=== PATIENT | female | born 1995 | race Caucasian/White ===

== ENCOUNTER → 2017-06-07 | Outpatient (REF) | payer BC | LOC: M LAB REF 16:23 | DX: R10.30 Lower abdominal pain, unspecified (principal) | CPT/HCPCS: 87086 ==

== ENCOUNTER → 2018-01-05 | Outpatient (REF) | payer BC | LOC: M SFHCLERA 17:53 | DX: J02.9 Acute pharyngitis, unspecified (principal) ==

== ENCOUNTER → 2019-01-21 | Outpatient (REF) | payer MEDICAID, SELFPAY | LOC: M SFHCLERA 11:04 | PROVIDERS: ATTEND Physician Assistant Medical | DX: R30.0 Dysuria (principal) ==

== ENCOUNTER → 2019-12-27 | Outpatient (CLI) | payer OTHER ==
[2019-12-27 13:23] LABS: BASO # 0.1 10^3/uL (0.0-0.2); EOS # 0.3 10^3/uL (0.0-0.5); EOS % 3.7 % (0.0-3.0); HEMATOCRIT 40.6 % (36.0-47.0); HEMOGLOBIN 12.8 g/dl (12.0-15.5); LYMPH # 1.8 10^3/uL (1.5-5.0); LYMPH % 25.8 % (24.0-44.0); MEAN CORPUSCULAR HEMOGLOBIN 29.2 pg (27.0-33.0); MEAN CORPUSCULAR HGB CONC 31.5 g/dl (32.0-36.5); MEAN CORPUSCULAR VOLUME 92.7 fl (80.0-96.0); MONO # 0.5 10^3/uL (0.0-0.8); MONO % 7.8 % (0.0-5.0); NEUTROPHILS # 4.3 10^3/uL (1.5-8.5); NEUTROPHILS % 61.3 % (36.0-66.0); PLATELET COUNT, AUTOMATED 317 10^3/uL (150-450); RED BLOOD COUNT 4.38 10^6/uL (4.00-5.40)
[2019-12-27 14:15] LABS: ALBUMIN 3.7 GM/DL (3.2-5.2); ALT/SGPT 20 U/L (12-78); BILIRUBIN,TOTAL 0.3 MG/DL (0.2-1.0); BLOOD UREA NITROGEN 9 MG/DL (7-18); CALCIUM LEVEL 9.2 MG/DL (8.5-10.1); CARBON DIOXIDE LEVEL 27 MEQ/L (21-32); CHLORIDE LEVEL 107 MEQ/L (98-107); CREATININE FOR GFR 0.91 MG/DL (0.55-1.30); GLOMERULAR FILTRATION RATE > 60.0 (>60); GLUCOSE, FASTING 77 MG/DL (70-100); POTASSIUM SERUM 4.3 MEQ/L (3.5-5.1); SODIUM LEVEL 139 MEQ/L (136-145); TOTAL PROTEIN 7.7 GM/DL (6.4-8.2)
[2019-12-27 14:16] LABS: FREE T4 1.04 NG/DL (0.76-1.46); THYROID PEROXIDASE ANTIBODY 31.7 U/ML (<60.0); TOTAL 25(OH) VITAMIN D 39.6 NG/ML (30.0-100.0)
[2019-12-28 20:11] LABS: THRYOGLOBULIN ANTIBODIES (ATA) < 1.0 IU/mL (0.0-0.9); TISSUE TRANSGLUTAMINASE IgA <2 U/mL (0-3); TISSUE TRANSGLUTAMINASE IgG <2 U/mL (0-5); UNITSIGA FOR GLIADIN IGA 4 units (0-19); UNITSIGG FOR GLIADIN IGG 4 units (0-19)
== END ==
LOC: M LAB 12:11
PROVIDERS: ATTEND Physician Assistant
DX: K58.0 Irritable bowel syndrome with diarrhea (principal); Z13.29 Encounter for screening for other suspected endocrine disorder

== ENCOUNTER → 2020-02-28 | Outpatient (CLI) | payer OTHER ==
[~2020-02-28] MED LIST: ISOVUE-370 76% 100ML VIAL As Ordered ONE
--- NOTE | 2020-02-28 16:03 | REPVR ---
PROCEDURE INFORMATION: Exam: CT Neck With Contrast Exam date and time: 02/28/2020 3:46 PM Age: 24 years old Clinical indication: Enlarged lymph nodes; Localized; Additional info: Localized enlarged lymph nodes TECHNIQUE: Imaging protocol: Computed tomography images of the neck with intravenous contrast. Radiation optimization: All CT scans at this facility use at least one of these dose optimization techniques: automated exposure control; mA and/or kV adjustment per patient size (includes targeted exams where dose is matched to clinical indication); or iterative reconstruction. Contrast material: ISOVUE 370; Contrast volume: 75 ml; Contrast route: INTRAVENOUS (IV); COMPARISON: No relevant prior studies available. FINDINGS: Nasopharynx: Unremarkable. Oropharynx: There is bilateral marked tonsillar enlargement. A small calcification in the left tonsil is evidence of chronic inflammation. No acute inflammatory findings are identified. There is no evidence of peritonsillar abscess. Hypopharynx: Unremarkable. Larynx: Unremarkable. Normal epiglottis. Retropharyngeal space: Unremarkable. Submandibular/Parotid glands: Normal. Glands are normal in size. Thyroid: Normal. No enlarged or calcified nodules. Lymph nodes: There are bilateral mildly enlarged level 2 jugular lymph nodes measuring up to 10 mm in short axis. There are additional smaller bilateral jugular lymph nodes. No grossly enlarged lymph nodes. No abnormally enhancing lymph nodes. Trachea: Visualized trachea is unremarkable. Lungs: Unremarkable as visualized. Bones/joints: Unremarkable. No acute fracture. Soft tissues: Unremarkable. No significant soft tissue swelling. IMPRESSION: 1. Markedly , symmetrically, enlarged tonsils with no evidence of acute inflammation. 2. Mildly enlarged bilateral jugular lymph nodes consistent with reactive adenopathy. Electronically signed by: Darrell Martinez On 02/28/2020 16:02:40 PM
== END ==
LOC: M RAD 15:33
PROVIDERS: ATTEND Physician Assistant
DX: R59.0 Localized enlarged lymph nodes (principal)
CPT/HCPCS: 70491; Q9967

== ENCOUNTER → 2020-06-22 | Outpatient (CLI) | payer SELFPAY | LOC: M LABSMTC 11:23 | PROVIDERS: ATTEND Pediatrics | DX: Z20.822 Contact with and (suspected) exposure to COVID-19 (principal) ==

== ENCOUNTER → 2020-07-28 | Outpatient (CLI) | payer SELFPAY | LOC: M LABSMTC 12:17 | PROVIDERS: ATTEND Pediatrics | DX: Z20.822 Contact with and (suspected) exposure to COVID-19 (principal) ==

== ENCOUNTER → 2020-07-30 | Outpatient (CLI) | payer SELFPAY | LOC: M LABSMTC 11:59 | PROVIDERS: ATTEND Pediatrics | DX: Z20.822 Contact with and (suspected) exposure to COVID-19 (principal) ==

== ENCOUNTER → 2021-01-15 | Outpatient (CLI) | payer MEDICAID ==
--- NOTE | 2021-01-15 13:10 | REP ---
INDICATION: PLEURISY. COMPARISON: 10/25/2015 PA and lateral chest. TECHNIQUE: Upright PA and lateral chest. FINDINGS: The lung childers are clear. Cardiac size is normal. The yaquelin, mediastinum and skeletal structures are unremarkable. No focal or diffuse pleural thickening. No pleural effusion. IMPRESSION: Essentially negative PA and lateral chest <Electronically signed by Heriberto Barnes > 01/15/21 [id number]
[2021-01-15 13:12] LABS: BASO # 0.1 10^3/uL (0.0-0.2); BASO % 1.3 % (0.0-1.0); EOS # 0.1 10^3/uL (0.0-0.5); EOS % 1.8 % (0.0-3.0); HEMATOCRIT 40.1 % (36.0-47.0); HEMOGLOBIN 12.4 g/dl (12.0-15.5); LYMPH # 2.2 10^3/uL (1.5-5.0); LYMPH % 27.6 % (24.0-44.0); MEAN CORPUSCULAR HEMOGLOBIN 28.3 pg (27.0-33.0); MEAN CORPUSCULAR HGB CONC 30.9 g/dl (32.0-36.5); MEAN CORPUSCULAR VOLUME 91.6 fl (80.0-96.0); MONO # 0.8 10^3/uL (0.0-0.8); MONO % 9.6 % (2.0-8.0); NEUTROPHILS # 4.7 10^3/uL (1.5-8.5); NEUTROPHILS % 59.3 % (36.0-66.0); PLATELET COUNT, AUTOMATED 329 10^3/uL (150-450); RED BLOOD COUNT 4.38 10^6/uL (4.00-5.40); WHITE BLOOD COUNT 7.9 10^3/uL (4.0-10.0)
[2021-01-15 13:26] LABS: INR 0.96; PROTHROMBIN TIME 13.2 SECONDS (12.7-14.5)
[2021-01-15 13:27] LABS: PARTIAL THROMBOPLASTIN TIME 29.2 SECONDS (25.9-37.0)
[2021-01-15 13:29] LABS: D-DIMER QUANT 361.67 ng/ml (<500)
[2021-01-15 13:42] LABS: ALT/SGPT 25 U/L (12-78); BILIRUBIN,TOTAL 0.4 MG/DL (0.2-1.0); BLOOD UREA NITROGEN 12 MG/DL (7-18); CALCIUM LEVEL 9.3 MG/DL (8.5-10.1); CARBON DIOXIDE LEVEL 27 MEQ/L (21-32); CHLORIDE LEVEL 109 MEQ/L (98-107); CREATININE FOR GFR 0.88 MG/DL (0.55-1.30); GLOMERULAR FILTRATION RATE > 60.0 (>60); GLUCOSE, FASTING 95 MG/DL (70-100); POTASSIUM SERUM 4.6 MEQ/L (3.5-5.1); SODIUM LEVEL 139 MEQ/L (136-145); TOTAL PROTEIN 7.5 GM/DL (6.4-8.2); TROPONIN I < 0.02 NG/ML (< 0.10)
== END ==
LOC: M LAB 12:32
PROVIDERS: ATTEND Physician Assistant
DX: R09.1 Pleurisy (principal)

== ENCOUNTER → 2021-03-20 | Outpatient (CLI) | payer OTHER ==
[~2021-03-20] MED LIST changes: -ISOVUE-370 76% 100ML VIAL As Ordered ONE; +NEXI20CA PO; +THERTAB52 PO
== END ==
LOC: M LABSMTC 10:26
PROVIDERS: ATTEND Anesthesiology
DX: Z01.818 Encounter for other preprocedural examination (principal); Z11.52 Encounter for screening for COVID-19

== ENCOUNTER → 2021-03-20 | Outpatient (CLI) | payer OTHER ==
[2021-03-20 10:39] LABS: BASO # 0.1 10^3/uL (0.0-0.2); BASO % 1.1 % (0.0-1.0); EOS # 0.1 10^3/uL (0.0-0.5); EOS % 1.5 % (0.0-3.0); HEMATOCRIT 41.3 % (36.0-47.0); HEMOGLOBIN 13.1 g/dl (12.0-15.5); LYMPH # 2.1 10^3/uL (1.5-5.0); LYMPH % 39.7 % (24.0-44.0); MEAN CORPUSCULAR HEMOGLOBIN 29.4 pg (27.0-33.0); MEAN CORPUSCULAR HGB CONC 31.7 g/dl (32.0-36.5); MEAN CORPUSCULAR VOLUME 92.6 fl (80.0-96.0); MONO # 0.6 10^3/uL (0.0-0.8); MONO % 11.3 % (2.0-8.0); NEUTROPHILS # 2.4 10^3/uL (1.5-8.5); NEUTROPHILS % 46.2 % (36.0-66.0); PLATELET COUNT, AUTOMATED 300 10^3/uL (150-450); RED BLOOD COUNT 4.46 10^6/uL (4.00-5.40); WHITE BLOOD COUNT 5.2 10^3/uL (4.0-10.0)
[2021-03-20 11:09] LABS: ALBUMIN 3.8 GM/DL (3.2-5.2); ALT/SGPT 21 U/L (12-78); BILIRUBIN,TOTAL 0.4 MG/DL (0.2-1.0); BLOOD UREA NITROGEN 15 MG/DL (7-18); CALCIUM LEVEL 9.6 MG/DL (8.5-10.1); CARBON DIOXIDE LEVEL 25 MEQ/L (21-32); CHLORIDE LEVEL 110 MEQ/L (98-107); CREATININE FOR GFR 1.01 MG/DL (0.55-1.30); GLOMERULAR FILTRATION RATE > 60.0 (>60); GLUCOSE, FASTING 83 MG/DL (70-100); POTASSIUM SERUM 4.9 MEQ/L (3.5-5.1); SODIUM LEVEL 139 MEQ/L (136-145); TOTAL PROTEIN 7.5 GM/DL (6.4-8.2)
== END ==
LOC: M LAB 09:02
PROVIDERS: ATTEND Physician Assistant
DX: Z01.818 Encounter for other preprocedural examination (principal)

== ENCOUNTER 2021-03-25 10:23 | Observation (INO) | payer OTHER ==
[~2021-03-25] VITALS: Ht 170.2 cm; Wt 80.7 kg
[~2021-03-25 10:23] MED LIST changes: +BUPIVACAINE LIPOSOME/PF 1.3% 20ML VIAL (13.3MG/ML)(EXPAREL)(C9290 PER1MG) As Ordered ONE; +GENTAMICIN SULF 80MG/2ML VIAL As Ordered ONE; +HEPARIN SOD (PORCINE) 5000UNITS/ML 1ML VIAL/SYRINGE SQ ONE; +LIDOCAINE 2% 100MG/5ML SDV (FOR ANES.) As Ordered ONE; +LR 1,000 ML IV ONE; +MIDAZOLAM INJ 2MG/2ML VIAL (J2250 PER 1MG) As Ordered ONE; +ONDANSETRON 4MG/2ML VIAL As Ordered ONE; +ROCURONIUM BROMIDE 50 MG/5 ML VIAL As Ordered ONE; +SUGAMMADEX SODIUM 500 MG/5 ML VIAL (BRIDION) As Ordered ONE; +ceFAZolin SOD 2 GM in IV 1 EA IV ONE; +dexameTHASONE 4 MG/ML 1ML VIAL (J1100 PER 1MG) As Ordered ONE; +fentaNYL 250 MCG/5 ML INJECTION (J3010) As Ordered ONE; +propofoL 200 MG/20 ML VIAL As Ordered ONE
--- OUTSIDE RECORDS SUMMARY | 2021-03-25 10:27 | CCD | Continuity of Care Document ---
Author Author Zulma SCHNEIDER D.O. Organization Unknown Address [address] [place] [address] Phone [phone] Care Team Providers Care [employer] Piece Consultant Name Role Phone Liat Schneider D.O. AUTM Brijesh Caceres M.D. AUTM [phone] Gabriela Hunt DO AUTM [phone] Problems Active Problems Provider Date Essential hypertension Onset: 12/17/2019 Migraine without aura, not refractory GURDEEP Draper On set: 12/23/2019 Irritable bowel syndrome with diarrhea GURDEEP Draper O nset: 12/23/2019 Gastro-esophageal reflux disease with esophagitis GURDEEP Morgan Onset: 12/23/2019 Social History Type Date Description Comments Sex Unknown ETOH Use Currently consumes alcohol 10 pe r week Tobacco Use Start: Unknown Patient has never smoked Recreational Drug Use Denies Drug Use Exercise Type/Frequency Exercises regularly Exercise Type/Frequency Cardio Sun Exposure Uses sunscreen Seat Belt/Car Seat Always uses seat belt Allergies, Adverse Reactions, Alerts Description No Known Drug Allergies Medications Active Medications SIG Qnty Indications Ordering Provide r Date Esomeprazole Magnesium 20mg Capsul es DR 1 by mouth every day 90caps K21.0 Liat Schneider D.O. Dicyclomine HCL 10mg Capsules take one tablet every 12 hours by mouth as needed for diarrhea. 90caps K58.0 Liat Schneider D.O. 12/23/2019 Multivitamin Adult Tablets 1 by mouth every day Unknown Kyleena 19.5mg IUD Unknown Immunizations Description No Information Available Vital Signs Date Vital Result Comment 03/05/2021 9:21am BP Systolic 122 mmHg BP Diastolic 82 mmHg Height 66.5 inches 5'6.50" Weight 183.00 lb BMI (Body Mass Index) 29.1 kg/m2 Heart Rate 78 /min Respiratory Rate 18 /min Body Temperature 97.5 F O2 % BldC Oximetry 97 % [place] Body Weight 130 lb 01/15/2021 11:18am BP Systolic 118 mmHg BP Diastolic 72 mmHg Height 66.5 inches 5'6.50" Weight 184.25 lb BMI (Body Mass Index) 29.3 kg/m2 Heart Rate 78 /min Respiratory Rate 18 /min Body Temperature 98.1 F O2 % BldC Oximetry 98 % [place] Body Weight 130 lb Results Test Acquired Date Facility Test Result H/L Range Note Coronavirus 2019 Nasopharygeal 03/20/2021 [facility] Outpa tient Testing (Registration) [address] [place] [address] [phone] Coronavirus 2019 Nasopharygeal ASSAY INFORMATIO <SEE N OTE> 1 CBC With Differential 03/20/[address] [address] [phone] White Blood Count 5.2 10 Normal 4.0-10.0 Red Blood Count 4.46 10 Normal 4.00-5.40 Hemoglobin 13.1 g/dL Normal 12.0-15.5 Hematocrit 41.3 % Normal 36.0-47.0 Mean Corpuscular Volume 92.6 fl Normal 80.0-96.0 Mean Corpuscular Hemoglobin 29.4 pg Normal 27.0-33.0 Mean Corpuscular HGB Conc 31.7 g/dL Low 32.0-36.5 Red Cell Distribution Width 13.4 % Normal 11.5-14.5 Platelet Count, Automated 300 10 Normal 150-450 Neutrophils % 46.2 % Normal 36.0-66.0 Lymph % 39.7 % Normal 24.0-44.0 [place] % 11.3 % High 2.0-8.0 Eos % 1.5 % Normal 0.0-3.0 Baso % 1.1 % High 0.0-1.0 Immature Granulocyte % 0.2 % Normal 0-3.0 Nucleated Red Blood Cell % 0.0 % Normal 0-0 Neutrophils # 2.4 10 Normal 1.5-8.5 Lymph # 2.1 10 Normal 1.5-5.0 [place] # 0.6 10 Normal 0.0-0.8 Eos # 0.1 10 Normal 0.0-0.5 Baso # 0.1 10 Normal 0.0-0.2 Comprehensive Metabolic Profil 03/20/[address] [address] [phone] Glucose, Fasting 83 mg/dL Normal 70-100 Blood Urea Nitrogen 15 mg/dL Normal 7-18 Creatinine For GFR 1.01 mg/dL Normal 0.55-1.30 Glomerular Filtration Rate > 60.0 Normal >60 2 Sodium Level 139 mEq/L Normal 136-145 Potassium Serum 4.9 mEq/L Normal 3.5-5.1 Chloride Level 110 mEq/L High 98-107 Carbon Dioxide Level 25 mEq/L Normal 21-32 Anion Gap 4 mEq/L Low 8-16 Calcium Level 9.6 mg/dL Normal 8.5-10.1 Ast/Sgot 15 U/L Normal 7-37 Alt/SGPT 21 U/L Normal 12-78 Alkaline Phosphatase 117 U/L Normal 45-117 Bilirubin,Total 0.4 mg/dL Normal 0.2-1.0 Total Protein 7.5 GM/DL Normal 6.4-8.2 Albumin 3.8 GM/DL Normal 3.2-5.2 Albumin/Globulin Ratio 1.0 Low 1.2-2.2 Ua W/Culture If Indicated 01/19/2021 [facility] [place] [address] [phone] Color Ur YELLOW 3 Appearance Ur CLEAR Clear pH Ur Strip 5.5 5-8 Sp Gr Ur Refractometry 1.009 1.005-1.030 Leukocyte esterase Ur Ql Strip NEGATIVE Negative Nitrite Ur Ql Strip NEGATIVE Negative Prot Ur Ql Strip NEGATIVE Negative Glucose Ur Strip.auto-mCnc NEGATIVE Negative Ketones Ur Ql Strip NEGATIVE Negative Urobilinogen Ur Ql 0.2 EU/dl 0.2-1 Eu/dl Bilirub Ur Ql Strip.auto NEGATIVE Negative RBC # Ur Strip NEGATIVE Negative Urine Microscopic? (Cif) NO CBC With Differential 01/15/[address] [id number] [phone] White Blood Count 7.9 10 Normal 4.0-10.0 Red Blood Count 4.38 10 Normal 4.00-5.40 Hemoglobin 12.4 g/dL Normal 12.0-15.5 Hematocrit 40.1 % Normal 36.0-47.0 Mean Corpuscular Volume 91.6 fl Normal 80.0-96.0 Mean Corpuscular Hemoglobin 28.3 pg Normal 27.0-33.0 Mean Corpuscular HGB Conc 30.9 g/dL Low 32.0-36.5 Red Cell Distribution Width 13.9 % Normal 11.5-14.5 Platelet Count, Automated 329 10 Normal 150-450 Neutrophils % 59.3 % Normal 36.0-66.0 Lymph % 27.6 % Normal 24.0-44.0 [place] % 9.6 % High 2.0-8.0 Eos % 1.8 % Normal 0.0-3.0 Baso % 1.3 % High 0.0-1.0 Immature Granulocyte % 0.4 % Normal 0-3.0 Nucleated Red Blood Cell % 0.0 % Normal 0-0 Neutrophils # 4.7 10 Normal 1.5-8.5 Lymph # 2.2 10 Normal 1.5-5.0 [place] # 0.8 10 Normal 0.0-0.8 Eos # 0.1 10 Normal 0.0-0.5 Baso # 0.1 10 Normal 0.0-0.2 Comprehensive Metabolic Profil 01/15/[address] [address] [phone] Glucose, Fasting 95 mg/dL Normal 70-100 Blood Urea Nitrogen 12 mg/dL Normal 7-18 Creatinine For GFR 0.88 mg/dL Normal 0.55-1.30 Glomerular Filtration Rate > 60.0 Normal >60 4 Sodium Level 139 mEq/L Normal 136-145 Potassium Serum 4.6 mEq/L Normal 3.5-5.1 Chloride Level 109 mEq/L High 98-107 Carbon Dioxide Level 27 mEq/L Normal 21-32 Anion Gap 3 mEq/L Low 8-16 Calcium Level 9.3 mg/dL Normal 8.5-10.1 Ast/Sgot 13 U/L Normal 7-37 Alt/SGPT 25 U/L Normal 12-78 Alkaline Phosphatase 99 U/L Normal 45-117 Bilirubin,Total 0.4 mg/dL Normal 0.2-1.0 Total Protein 7.5 GM/DL Normal 6.4-8.2 Albumin 4.0 GM/DL Normal 3.2-5.2 Albumin/Globulin Ratio 1.1 Low 1.2-2.2 Laboratory test finding 01/15/[address] [address] [phone] D-Dimer Quant 361.67 ng/ml Normal <500 PT & Aptt 01/15/2021 [facility] ce nter [address] [place] [address] [phone] Prothrombin Time 13.2 seconds Normal 12.7-14.5 Inr 0.96 Normal 5 Partial Thromboplastin Time 29.2 seconds Normal 25.9-37.0 Laboratory test finding 01/15/[address] [address] [phone] Troponin I < 0.02 NG/ML Normal < 0.10 6 Order 01/15/2021 In House Orders EKG see report Ua dipstick Pnl Ur Strip.auto 12/24/2020 [facility] [place] [address] [phone] Color Ur DARK YELLOW 7 Appearance Ur CLEAR Clear pH Ur Strip 6.5 5-8 Sp Gr Ur Refractometry 1.005 1.005-1.030 Leukocyte esterase Ur Ql Strip SMALL Abnormal Negative 8 Nitrite Ur Ql Strip POSITIVE High Negative 9 Prot Ur Ql Strip NEGATIVE Negative Glucose Ur Strip.auto-mCnc NEGATIVE Negative Ketones Ur Ql Strip NEGATIVE Negative Urobilinogen Ur Ql 1 EU/dl 0.2-1 Eu/dl Bilirub Ur Ql Strip.auto NEGATIVE Negative RBC # Ur Strip NEGATIVE Negative Urine Microscopic? (Cif) Microscopic Adde <SEE NOTE> 10 Add On Microscopic 12/24/2020 [place] [address] [phone] WBC # Ur Manual 8-12 UCUM High 0-5 Cells UrnS Micro OCCASIONAL Bacteria UrnS Ql Micro SMALL AMOUNT High Negative Culture Urine 12/24/2020 [place] [address] [phone] Urine culture result Gram neg bacilli <SEE NOTE> 11 Bacteria Ur Cult ESCHERICHIA COLI 12 [place] count Less than 10,000 13 Gram Negative Panle 4 12/24/2020 [place] [address] [phone] Trimethoprim/Sulfamethoxazole <2/38 Susceptible Amoxicillin+Clavulanate [Susceptibility] by Minimum inhibitory concentration (Boris) <8/4 Susceptible Ampicillin [Susceptibility] by Minimum inhibitory concentrat ion (Boris) <8 Susceptible Ampicillin+Sulbactam [Susceptibility] by Minimum inhib itory concentration (Boris) <8/4 Susceptible Cefotaxime [Susceptibility] by Minimum inhibitory concentrat ion (Boris) <2 Susceptible cefTRIAXone [Susceptibility] by Minimum inhibitory concentra tion (Boris) <1 Susceptible Ciprofloxacin [Susceptibility] by Minimum inhibitory concent ration (Boris) <1 Susceptible Ertapenem [Susceptibility] by Minimum inhibitory concentrati on (Boris) <0.5 Susceptible Gentamicin [Susceptibility] by Minimum inhibitory concentrat ion (Boris) <2 Susceptible Imipenem [Susceptibility] by Minimum inhibitory concentratio n (Boris) <1 Susceptible Nitrofurantoin [Susceptibility] by Minimum inhibitory concen tration (Boris) <32 Susceptible Tetracycline [Susceptibility] by Minimum inhibitory concentr ation (Boris) <4 Susceptible Tobramycin [Susceptibility] by Minimum inhibitory concentrat ion (Boris) <4 Susceptible levoFLOXacin [Susceptibility] by Minimum inhibitory concentr ation (Boris) <2 Susceptible Cefepime [Susceptibility] by Minimum inhibitory concentratio n (Boris) <8 Susceptible Piperacillin+Tazobactam [Susceptibility] by Minimum inhibitory concentration (Boris) <16 Susceptible 1 ASSAY INFORMATION: Real Time RT-PCR NOTE: The COVID-19 assay has been cleared by the U.S. Food and Drug Administration under the Emergency Use Authorization (EUA). [facility] and [facility] are designated as high complexity laboratories by the Clinical Laboratory Improvement Amendments of 1988(CLIA) and are qualified to perform this test. Not Detected 2 Units are mL/min/1.73 m2 Chronic Kidney Disease Staging per NKF: Stage I & II GFR >=60 Normal to Mildly Decreased Stage III GFR 30-59 Moderately Decreased Stage IV GFR 15-29 Severely Decreased Stage V GFR <15 Very Little GFR Left ESRD GFR <15 on CLAY PRESS OPERATOR 3 Z11.3 4 Units are mL/min/1.73 m2 Chronic Kidney Disease Staging per NKF: Stage I & II GFR >=60 Normal to Mildly Decreased Stage III GFR 30-59 Moderately Decreased Stage IV GFR 15-29 Severely Decreased Stage V GFR <15 Very Little GFR Left ESRD GFR <15 on CLAY PRESS OPERATOR 5 THERAPUTIC HUMAN INR VALUES INDICATIONS NORMAL RANGES PROPHYLAXIS/TREATMENT OF: VENOUS THROMBOSIS 2.0-3.0 PULMONARY EMBOLISM 2.0-3.0 PREVENTION OF SYSTEMIC EMBOLISM FROM: TISSUE HEART VALVES 2.0-3.0 ACUTE MYOCARDIAL INFARCTION 2.0-3.0 VALVULAR HEART DISEASE 2.0-3.0 ATRIAL FIBRILLATION 2.0-3.0 MECHANICAL VALVES(HIGH RISK) 2.5-3.5 RECURRENT MYOCARDIAL INFARCTION 2.5-3.5 6 Troponin I Reference Interva l for [employer] LOCI: 99th Percentile= 0.00-0.045 ng/ml Risk Stratification: <= 0.10 ng/ml Decreased Risk for Adverse Clinical Events. 0.10-1.50 ng/ml Increased Risk for Adv erse Clinical Events. Evaluation of additional criterion and/or repeat testing in 2-6 hours is suggested to rule out myocardial damage. >= 1.50 ng/ml Indicative of Myocardial Injury. 7 N39.0,R30.0 8 A Culture has been added to this specimen per established criteria 9 A Culture has been added to this specimen per established criteria 10 Microscopic Added 11 Gram neg bacilli results to follow 12 GRAM NEGATIVE NATE 13 Less than 10,000 Procedures Date Code Description Status 03/05/2021 03345 Office/Outpatient Established Lo w MDM 20-29 Min Completed 01/15/2021 58674 Office/Outpatient Established Mo d MDM 30-39 Min Completed 01/15/2021 31925 Electrocardiogram Complete Compl eted Medical Devices Description No Information Available Encounters Type Date Location Provider Dx Diagnosis Office Visit 03/05/2021 9:30a [facility] GURDEEP Dorman Z01.818 Encounter for other preproce dural examination N62 Hypertrophy of breast K21.00 Gastro-esophageal reflux dis with esophagitis, without bleed Office Visit 01/15/2021 11:30a [facility] GURDEEP Dorman R09.1 Pleurisy Assessments Date Code Description Provider 03/05/2021 Z01.818 Encounter for other preprocedura l examination GURDEEP Draper 03/05/2021 N62 Hypertrophy of breast GURDEEP Morgan 03/05/2021 K21.00 Gastro-esophageal re flux disease with esophagitis, without bleeding GURDEEP Draper 01/15/2021 R09.1 Pleurisy GURDEEP Draper Plan of Treatment Future Appointment(s):* 07/23/2021 10:00 am - GURDEEP Draper at [facility] Functional Status Description No Information Available Mental Status Description No Information Available Referrals Description No Information Available
--- OUTSIDE RECORDS SUMMARY | 2021-03-25 10:27 | CCD | Continuity of Care Document ---
Author Zulma Cabrera Organization [place] [address] Phone [phone] Care Team Providers Care [employer] Weigher Name Role Phone Liat Schneider D.O. AUTM Brijesh Caceres M.D. AUTM [phone] Gabriela Hunt DO AUTM [phone] Problems Active Problems Provider Date Essential hypertension [...] 1 by mouth every day 90caps K21.0 Kathrine ArriagaORochelle Dicyclomine HCL 10mg Capsules take one tablet [...] F O2 % BldC Oximetry 97 % [place] Body Weight 130 lb 01/15/2021 11:18am BP Systolic 118 mmHg BP Diastolic 72 mmHg Height 66.5 inches 5'6.50" Weight 184.25 lb BMI (Body Mass Index) 29.3 kg/m2 Heart Rate 78 /min Respiratory Rate 18 /min Body Temperature 98.1 F O2 % BldC Oximetry 98 % [place] Body Weight 130 lb Results Test Acquired Date Facility Test Result H/L Range Note Coronavirus 2019 Nasopharygeal 03/20/2021 [facility] Outpa tient Testing (Registration) [address] [place] [address] [phone] Coronavirus 2019 Nasopharygeal ASSAY INFORMATIO <SEE N OTE> 1 CBC With Differential 03/20/[address] [address] [phone] White Blood Count 5.2 10 Normal 4.0-10.0 [...] 36.0-66.0 Lymph % 39.7 % Normal 24.0-44.0 [place] % 11.3 % High 2.0-8.0 Eos % 1.5 % Normal 0.0-3.0 Baso % 1.1 % High 0.0-1.0 Immature Granulocyte % 0.2 % Normal 0-3.0 Nucleated Red Blood Cell % 0.0 % Normal 0-0 Neutrophils # 2.4 10 Normal 1.5-8.5 Lymph # 2.1 10 Normal 1.5-5.0 [place] # 0.6 10 Normal 0.0-0.8 Eos # 0.1 10 Normal 0.0-0.5 Baso # 0.1 10 Normal 0.0-0.2 Comprehensive Metabolic Profil 03/20/[address] [address] [phone] Glucose, Fasting 83 mg/dL Normal 70-100 Blood [...] Low 1.2-2.2 Ua W/Culture If Indicated 01/19/2021 [facility] [place] [address] [phone] Color Ur YELLOW 3 Appearance Ur CLEAR [...] Microscopic? (Cif) NO CBC With Differential 01/15/[address] [place] [id number] [phone] White Blood Count 7.9 10 Normal 4.0-10.0 [...] 36.0-66.0 Lymph % 27.6 % Normal 24.0-44.0 [place] % 9.6 % High 2.0-8.0 Eos % 1.8 % Normal 0.0-3.0 Baso % 1.3 % High 0.0-1.0 Immature Granulocyte % 0.4 % Normal 0-3.0 Nucleated Red Blood Cell % 0.0 % Normal 0-0 Neutrophils # 4.7 10 Normal 1.5-8.5 Lymph # 2.2 10 Normal 1.5-5.0 [place] # 0.8 10 Normal 0.0-0.8 Eos # 0.1 10 Normal 0.0-0.5 Baso # 0.1 10 Normal 0.0-0.2 Comprehensive Metabolic Profil 01/15/[address] [address] [phone] Glucose, Fasting 95 mg/dL Normal 70-100 Blood [...] 1.1 Low 1.2-2.2 Laboratory test finding 01/15/[address] [address] [phone] D-Dimer Quant 361.67 ng/ml Normal <500 PT & Aptt 01/15/2021 [facility] ce nter [address] [place] [address] [phone] Prothrombin Time 13.2 seconds Normal 12.7-14.5 Inr 0.96 Normal 5 Partial Thromboplastin Time 29.2 seconds Normal 25.9-37.0 Laboratory test finding 01/15/[address] [address] [phone] Troponin I < 0.02 NG/ML Normal < 0.10 6 Order 01/15/2021 In House Orders EKG see report Ua dipstick Pnl Ur Strip.auto 12/24/2020 [facility] [place] [address] [phone] Color Ur DARK YELLOW 7 Appearance Ur [...] <SEE NOTE> 10 Add On Microscopic 12/24/2020 [place] [address] [phone] WBC # Ur Manual 8-12 UCUM High 0-5 Cells UrnS Micro OCCASIONAL Bacteria UrnS Ql Micro SMALL AMOUNT High Negative Culture Urine 12/24/2020 [place] [address] [phone] Urine culture result Gram neg bacilli <SEE NOTE> 11 Bacteria Ur Cult ESCHERICHIA COLI 12 [place] count Less than 10,000 13 Gram Negative Panle 4 12/24/2020 [facility] [place] [address] [phone] Trimethoprim/Sulfamethoxazole <2/38 Susceptible Amoxicillin+Clavulanate [Susceptibility] by Minimum [...] Administration under the Emergency Use Authorization (EUA). [facility] are designated as high complexity laboratories by [...] Little GFR Left ESRD GFR <15 on BIOLOGICAL TECHNICIAN 3 Z11.3 4 Units are mL/min/1.73 m2 Chronic Kidney Disease Staging per NKF: Stage I & II GFR >=60 Normal to Mildly Decreased Stage III GFR 30-59 Moderately Decreased Stage IV GFR 15-29 Severely Decreased Stage V GFR <15 Very Little GFR Left ESRD GFR <15 on BIOLOGICAL TECHNICIAN 5 THERAPUTIC HUMAN INR VALUES INDICATIONS NORMAL RANGES PROPHYLAXIS/TREATMENT OF: VENOUS THROMBOSIS 2.0-3.0 PULMONARY EMBOLISM 2.0-3.0 PREVENTION OF SYSTEMIC EMBOLISM FROM: TISSUE HEART VALVES 2.0-3.0 ACUTE MYOCARDIAL INFARCTION 2.0-3.0 VALVULAR HEART DISEASE 2.0-3.0 ATRIAL FIBRILLATION 2.0-3.0 MECHANICAL VALVES(HIGH RISK) 2.5-3.5 RECURRENT MYOCARDIAL INFARCTION 2.5-3.5 6 Troponin I Reference Interva l for [employer] LOCI: 99th Percentile= 0.00-0.045 ng/ml Risk Stratification: [...] 10,000 Procedures Date Code Description Status 03/05/2021 98924 Office/Outpatient Established Lo w MDM 20-29 Min Completed 01/15/2021 91318 Office/Outpatient Established Mo d MDM 30-39 Min Completed 01/15/2021 47167 Electrocardiogram Complete Compl eted Medical Devices Description No Information Available Encounters Type Date Location Provider Dx Diagnosis Office Visit 03/05/2021 9:30a [facility] GURDEEP Dorman Z01.818 Encounter for other preproce dural examination N62 Hypertrophy of breast K21.00 Gastro-esophageal reflux dis with esophagitis, without bleed Office Visit 01/15/2021 11:30a [facility] GURDEEP Dorman R09.1 Pleurisy Assessments Date Code Description Provider 03/05/2021 Z01.818 Encounter for other preprocedura l examination GURDEEP Draper 03/05/2021 N62 Hypertrophy of breast GURDEEP Morgan 03/05/2021 K21.00 Gastro-esophageal re flux disease with esophagitis, without bleeding GURDEEP Draper 01/15/2021 R09.1 Pleurisy GURDEEP Draper Plan of Treatment Future Appointment(s):* 07/23/2021 10:00 am - GURDEEP Draper at [facility] Functional Status Description No Information Available Mental Status Description No Information Available Referrals Description No Information Available
--- OUTSIDE RECORDS SUMMARY | 2021-03-25 10:27 | CCD | Continuity of Care Document ---
Author Author Zulma TAPIA DO Organization Unknown Address [address] [place] [address] Phone [phone] Care Team Providers Care Belt Maker Helper Name Role Phone [place] AUTM [phone] Liat Schneider D.O. AUTM [phone] AUTM Unavailable Problems Description No Information Available Social History Type Date Description Comments Sex Female ETOH Use 5 A Week Recreational Drug Use Denies Drug Use Tobacco Use Start: Unknown Denies Smoking Smoking Status Reviewed: 08/05/20 Denies Smoking Allergies, Adverse Reactions, Alerts Description No Known Drug Allergies Medications Active Medications SIG Qnty Indications Ordering Provide r Date Esomeprazole Magnesium 20mg Capsul es DR 1 tab po qd [place] Dicyclomine HCL 10mg Capsules 1 tab po qd prn [place] Multivitamin Adult Tablets 1 by mouth every day Unknown Immunizations Description No Information Available Vital Signs Date Vital Result Comment 03/03/2021 8:34am BP Systolic 115 mmHg BP Diastolic 77 mmHg Heart Rate 68 /min Height 67 inches 5'7" Weight 181.25 lb BMI (Body Mass Index) 28.4 kg/m2 [place] Body Weight 135 lb Weight 82.215 kg BSA (Body Surface Area) 1.94 m2 08/05/2020 1:58pm BP Systolic 140 mmHg BP Diastolic 102 mmHg Heart Rate 84 /min Respiratory Rate 16 /min Body Temperature 96.8 F Height 67 inches 5'7" Weight 192.00 lb BMI (Body Mass Index) 30.1 kg/m2 [place] Body Weight 135 lb Weight 87.091 kg BSA (Body Surface Area) 1.99 m2 Results Description No Information Available Procedures Description No Information Available Medical Devices Description No Information Available Encounters Description No Information Available Assessments Date Code Description Provider 03/03/2021 N62 Hypertrophy of breast Gabriela bettencourt, DO 03/03/2021 N64.81 Ptosis of breast Gabriela Leighy, DO 03/03/2021 Z01.818 Encounter for other preprocedura l examination Gabriela Tapia DO Plan of Treatment Future Appointment(s):* 03/25/2021 12:00 pm - Gabriela Tapia DO at [facility] * 03/31/2021 10:15 am - Gabriela Tapia DO at [facility] 03/03/2021 - Gabriela Tapia DO* N62 Hypertrophy of breast* Comments:* Pre op visit today. Procedure, post op care, expectations and risks and benefits discussed with patient at length. All questions answered.Ready to proceed.RTO after surgery. * N64.81 Ptosis of breast * Z01.818 Encounter for other preprocedural examination Functional Status Description No Information Available Mental Status Description No Information Available Referrals Description No Information Available
--- OUTSIDE RECORDS SUMMARY | 2021-03-25 10:28 | CCD | Continuity of Care Document ---
Author Author Zulma Prieto Mick Organization Unknown Address Unknown Phone [phone] Care Team Providers Care Shoe Cutter Name Role Phone Liat Schneider D.O. AUTM [phone] Brijesh Caceres M.D. AUTM [phone] Gabriela Hunt DO AUTM [phone] Problems Active Problems Provider Date Essential hypertension [...] mouth as needed for diarrhea. 90caps K58.0 Kathrine ArriagaORochelle 12/23/2019 Multivitamin Adult Tablets 1 by mouth every day Unknown Kyleena 19.5mg IUD Unknown Immunizations Description No Information Available Vital Signs Date Vital Result Comment 01/15/2021 11:18am BP Systolic 118 mmHg BP Diastolic 72 mmHg Height 66.5 inches 5'6.50" Weight 184.25 lb BMI (Body Mass Index) 29.3 kg/m2 Heart Rate 78 /min Respiratory Rate 18 /min Body Temperature 98.1 F O2 % BldC Oximetry 98 % [place] Body Weight 130 lb 05/27/2020 10:34am BP Systolic 122 mmHg BP Diastolic 78 mmHg Height 66.5 inches 5'6.50" Weight 192.00 lb BMI (Body Mass Index) 30.5 kg/m2 Heart Rate 77 /min Respiratory Rate 18 /min Body Temperature 98.5 F O2 % BldC Oximetry 98 % [place] Body Weight 130 lb Results Test Acquired Date Facility Test Result H/L Range Note Ua W/Culture If Indicated 01/19/2021 Rajesh Barrera [facility] [place] [address] [phone] Color Ur YELLOW 1 Appearance Ur CLEAR Clear pH Ur Strip [...] Microscopic? (Cif) NO CBC With Differential 01/15/[address] [address] [phone] White Blood Count 7.9 10 Normal 4.0-10.0 [...] 36.0-66.0 Lymph % 27.6 % Normal 24.0-44.0 [place] % 9.6 % High 2.0-8.0 Eos % 1.8 % Normal 0.0-3.0 Baso % 1.3 % High 0.0-1.0 Immature Granulocyte % 0.4 % Normal 0-3.0 Nucleated Red Blood Cell % 0.0 % Normal 0-0 Neutrophils # 4.7 10 Normal 1.5-8.5 Lymph # 2.2 10 Normal 1.5-5.0 [place] # 0.8 10 Normal 0.0-0.8 Eos # 0.1 10 Normal 0.0-0.5 Baso # 0.1 10 Normal 0.0-0.2 Comprehensive Metabolic Profil 01/15/[address] [address] [phone] Glucose, Fasting 95 mg/dL Normal 70-100 Blood [...] 1.1 Low 1.2-2.2 Laboratory test finding 01/15/[address] [address] [phone] D-Dimer Quant 361.67 ng/ml Normal <500 PT & Aptt 01/15/2021 [facility] nter [address] [place] [address] [phone] Prothrombin Time 13.2 seconds Normal 12.7-14.5 Inr 0.96 Normal 3 Partial Thromboplastin Time 29.2 seconds Normal 25.9-37.0 Laboratory test finding 01/15/[address] [address] [phone] Troponin I < 0.02 NG/ML Normal < 0.10 4 Order 01/15/2021 In House Orders EKG see report Ua dipstick Pnl Ur Strip.auto 12/24/2020 [facility] [place] [address] [phone] Color Ur DARK YELLOW 5 Appearance Ur CLEAR Clear pH Ur Strip 6.5 5-8 Sp Gr Ur Refractometry 1.005 1.005-1.030 Leukocyte esterase Ur Ql Strip SMALL Abnormal Negative 6 Nitrite Ur Ql Strip POSITIVE High Negative 7 Prot Ur Ql Strip NEGATIVE Negative Glucose Ur Strip.auto-mCnc NEGATIVE Negative Ketones Ur Ql Strip NEGATIVE Negative Urobilinogen Ur Ql 1 EU/dl 0.2-1 Eu/dl Bilirub Ur Ql Strip.auto NEGATIVE Negative RBC # Ur Strip NEGATIVE Negative Urine Microscopic? (Cif) Microscopic Adde <SEE NOTE> 8 Add On Microscopic 12/24/2020 [place] [address] [phone] WBC # Ur Manual 8-12 UC[facility] High 0-5 Cells UrnS Micro OCCASIONAL Bacteria UrnS Ql Micro SMALL AMOUNT High Negative Culture Urine 12/24/2020 [place] [address] [phone] Urine culture result Gram neg bacilli <SEE NOTE> 9 Bacteria Ur Cult ESCHERICHIA COLI 10 [place] count Less than 10,000 11 Gram Negative Panle 4 12/24/2020 [place] [address] [phone] Trimethoprim/Sulfamethoxazole <2/38 Susceptible Amoxicillin+Clavulanate [Susceptibility] by Minimum [...] Minimum inhibitory concentration (Boris) <16 Susceptible 1 Z11.3 2 Units are mL/min/1.73 m2 Chronic Kidney Disease Staging per NKF: Stage I & II GFR >=60 Normal to Mildly Decreased Stage III GFR 30-59 Moderately Decreased Stage IV GFR 15-29 Severely Decreased Stage V GFR <15 Very Little GFR Left ESRD GFR <15 on USED CAR MAKE READY WORKER 3 THERAPUTIC HUMAN INR VALUES INDICATIONS NORMAL RANGES PROPHYLAXIS/TREATMENT OF: VENOUS THROMBOSIS 2.0-3.0 PULMONARY EMBOLISM 2.0-3.0 PREVENTION OF SYSTEMIC EMBOLISM FROM: TISSUE HEART VALVES 2.0-3.0 ACUTE MYOCARDIAL INFARCTION 2.0-3.0 VALVULAR HEART DISEASE 2.0-3.0 ATRIAL FIBRILLATION 2.0-3.0 MECHANICAL VALVES(HIGH RISK) 2.5-3.5 RECURRENT MYOCARDIAL INFARCTION 2.5-3.5 4 Troponin I Reference Interva l for [employer] LOCI: 99th Percentile= 0.00-0.045 ng/ml Risk Stratification: <= 0.10 ng/ml Decreased Risk for Adverse Clinical Events. 0.10-1.50 ng/ml Increased Risk for Adv erse Clinical Events. Evaluation of additional criterion and/or repeat testing in 2-6 hours is suggested to rule out myocardial damage. >= 1.50 ng/ml Indicative of Myocardial Injury. 5 N39.0,R30.0 6 A Culture has been added to this specimen per established criteria 7 A Culture has been added to this specimen per established criteria 8 Microscopic Added 9 Gram neg bacilli results to follow 10 GRAM NEGATIVE NATE 11 Less than 10,000 Procedures Date Code Description Status 01/15/2021 [address]3060 Office/Outpatient Established Mo d MDM 30-39 Min Completed 01/15/2021 05274 Electrocardiogram Complete Compl eted Medical Devices Description No Information Available Encounters Type Date Location Provider Dx Diagnosis Office Visit 01/15/2021 11:30a [facility] GURDEEP Draper R09.1 Pleurisy Assessments Date Code Description Provider 01/15/2021 R09.1 Pleurisy GURDEEP Draper Plan of Treatment Future Appointment(s):* 07/23/2021 10:00 am - GURDEEP Draper at [facility] Functional Status Description No Information Available Mental Status Description No Information Available Referrals Description No Information Available
--- OUTSIDE RECORDS SUMMARY | 2021-03-25 10:28 | CCD | Continuity of Care Document ---
Author Zulma Cabrera Organization [place] [address] Phone [phone] Care Team Providers Care Teacher [employer] Name Role Phone Liat Schneider D.O. AUTM [phone] Brijesh Caceres M.D. AUTM [phone] Gabriela Hunt DO AUTM [phone] Problems Active Problems Provider Date Essential hypertension [...] F O2 % BldC Oximetry 97 % [place] Body Weight 130 lb 01/15/2021 11:18am BP Systolic 118 mmHg BP Diastolic 72 mmHg Height 66.5 inches 5'6.50" Weight 184.25 lb BMI (Body Mass Index) 29.3 kg/m2 Heart Rate 78 /min Respiratory Rate 18 /min Body Temperature 98.1 F O2 % BldC Oximetry 98 % [place] Body Weight 130 lb Results Test Acquired Date Facility Test Result H/L Range Note Ua W/Culture If Indicated 01/19/2021 [place] [address] [phone] Color Ur YELLOW 1 Appearance Ur CLEAR [...] Microscopic? (Cif) NO CBC With Differential 01/15/[address] [address] [phone] White Blood Count 7.9 10 Normal 4.0-10.0 [...] 36.0-66.0 Lymph % 27.6 % Normal 24.0-44.0 [place] % 9.6 % High 2.0-8.0 Eos % 1.8 % Normal 0.0-3.0 Baso % 1.3 % High 0.0-1.0 Immature Granulocyte % 0.4 % Normal 0-3.0 Nucleated Red Blood Cell % 0.0 % Normal 0-0 Neutrophils # 4.7 10 Normal 1.5-8.5 Lymph # 2.2 10 Normal 1.5-5.0 [place] # 0.8 10 Normal 0.0-0.8 Eos # 0.1 10 Normal 0.0-0.5 Baso # 0.1 10 Normal 0.0-0.2 Comprehensive Metabolic Profil 01/15/[address] [address] [phone] Glucose, Fasting 95 mg/dL Normal 70-100 Blood [...] 1.1 Low 1.2-2.2 Laboratory test finding 01/15/[address] [address] [phone] D-Dimer Quant 361.67 ng/ml Normal <500 PT & Aptt 01/15/2021 [facility] nter [address] [place] [address] [phone] Prothrombin Time 13.2 seconds Normal 12.7-14.5 Inr 0.96 Normal 3 Partial Thromboplastin Time 29.2 seconds Normal 25.9-37.0 Laboratory test finding 01/15/2021 [facility] [address] [place] [address] [phone] Troponin I < 0.02 NG/ML Normal < 0.10 4 Order 01/15/2021 In House Orders EKG see report Ua dipstick Pnl Ur Strip.auto 12/24/2020 [facility] [place] [address] [phone] Color Ur DARK YELLOW 5 Appearance Ur [...] <SEE NOTE> 8 Add On Microscopic 12/24/2020 [place] [address] [phone] WBC # Ur Manual 8-12 UC[facility] High 0-5 Cells UrnS Micro OCCASIONAL Bacteria UrnS Ql Micro SMALL AMOUNT High Negative Culture Urine 12/24/2020 [place] [address] [phone] Urine culture result Gram neg bacilli <SEE NOTE> 9 Bacteria Ur Cult ESCHERICHIA COLI 10 [place] count Less than 10,000 11 Gram Negative Panle 4 12/24/2020 [place] [address] [phone] Trimethoprim/Sulfamethoxazole <2/38 Susceptible Amoxicillin+Clavulanate [Susceptibility] by Minimum [...] Little GFR Left ESRD GFR <15 on CABLE TELEVISION PROGRAM DIRECTOR 3 THERAPUTIC HUMAN INR VALUES INDICATIONS NORMAL RANGES PROPHYLAXIS/TREATMENT OF: VENOUS THROMBOSIS 2.0-3.0 PULMONARY EMBOLISM 2.0-3.0 PREVENTION OF SYSTEMIC EMBOLISM FROM: TISSUE HEART VALVES 2.0-3.0 ACUTE MYOCARDIAL INFARCTION 2.0-3.0 VALVULAR HEART DISEASE 2.0-3.0 ATRIAL FIBRILLATION 2.0-3.0 MECHANICAL VALVES(HIGH RISK) 2.5-3.5 RECURRENT MYOCARDIAL INFARCTION 2.5-3.5 4 Troponin I Reference Interva l for [employer] LOCI: 99th Percentile= 0.00-0.045 ng/ml Risk Stratification: [...] 10,000 Procedures Date Code Description Status 03/05/2021 76359 Office/Outpatient Established Lo w MDM 20-29 Min Completed 01/15/2021 50579 Office/Outpatient Established Mo d MDM 30-39 Min Completed 01/15/2021 26869 Electrocardiogram Complete Compl eted Medical Devices Description No Information Available Encounters Type Date Location Provider Dx Diagnosis Office Visit 03/05/2021 9:30a [facility] GURDEEP Draper Z01.818 Encounter for other preproce dural examination N62 Hypertrophy of breast K21.00 Gastro-esophageal reflux dis with esophagitis, without bleed Office Visit 01/15/2021 11:[facility]a [facility] [...] 07/23/2021 10:00 am - GURDEEP Draper at [facility] Functional Status Description No Information Available Mental Status Description No Information Available Referrals Description No Information Available
--- OUTSIDE RECORDS SUMMARY | 2021-03-25 10:28 | CCD | Continuity of Care Document ---
Author Zulma Cabrera Organization Unknown [place] [address] Phone [phone] Care Team Providers Care Senior Benefits Analyst Name Role Phone Liat Schneider D.O. AUTM Brijesh Caceres M.D. AUTM [phone] Gabriela Hunt DO AUTM [phone] Problems Active Problems Provider Date Essential hypertension [...] F O2 % BldC Oximetry 98 % [place] Body Weight 130 lb 05/27/2020 10:34am BP Systolic 122 mmHg BP Diastolic 78 mmHg Height 66.5 inches 5'6.50" Weight 192.00 lb BMI (Body Mass Index) 30.5 kg/m2 Heart Rate 77 /min Respiratory Rate 18 /min Body Temperature 98.5 F O2 % BldC Oximetry 98 % [place] Body Weight 130 lb Results Test Acquired Date Facility Test Result H/L Range Note Ua W/Culture If Indicated [facility] [place] [address] [phone] Color Ur YELLOW 1 Appearance Ur CLEAR [...] Microscopic? (Cif) NO CBC With Differential 01/15/[address] [address] [phone] White Blood Count 7.9 10 Normal 4.0-10.0 [...] 36.0-66.0 Lymph % 27.6 % Normal 24.0-44.0 [place] % 9.6 % High 2.0-8.0 Eos % 1.8 % Normal 0.0-3.0 Baso % 1.3 % High 0.0-1.0 Immature Granulocyte % 0.4 % Normal 0-3.0 Nucleated Red Blood Cell % 0.0 % Normal 0-0 Neutrophils # 4.7 10 Normal 1.5-8.5 Lymph # 2.2 10 Normal 1.5-5.0 [place] # 0.8 10 Normal 0.0-0.8 Eos # 0.1 10 Normal 0.0-0.5 Baso # 0.1 10 Normal 0.0-0.2 Comprehensive Metabolic Profil 01/15/[address] [address] [phone] Glucose, Fasting 95 mg/dL Normal 70-100 Blood [...] 1.1 Low 1.2-2.2 Laboratory test finding 01/15/[address] [address] [phone] D-Dimer Quant 361.67 ng/ml Normal <500 PT & Aptt 01/15/2021 [facility] nter [address] [place] [address] [phone] Prothrombin Time 13.2 seconds Normal 12.7-14.5 Inr 0.96 Normal 3 Partial Thromboplastin Time 29.2 seconds Normal 25.9-37.0 Laboratory test finding 01/15/2021 [facility] [address] [place] [address] [phone] Troponin I < 0.02 NG/ML Normal < 0.10 4 Order 01/15/2021 In House Orders EKG see report Ua dipstick Pnl Ur Strip.auto 12/24/2020 [facility] [place] [address] [phone] Color Ur DARK YELLOW 5 Appearance Ur [...] <SEE NOTE> 8 Add On Microscopic 12/24/2020 [place] [address] [phone] WBC # Ur Manual 8-12 UCUM High 0-5 Cells UrnS Micro OCCASIONAL Bacteria UrnS Ql Micro SMALL AMOUNT High Negative Culture Urine 12/24/2020 [place] [address] [phone] Urine culture result Gram neg bacilli <SEE NOTE> 9 Bacteria Ur Cult ESCHERICHIA COLI 10 [place] count Less than 10,000 11 Gram Negative Panle 4 12/24/2020 [place] [address] [phone] Trimethoprim/Sulfamethoxazole <2/38 Susceptible Amoxicillin+Clavulanate [Susceptibility] by Minimum [...] Little GFR Left ESRD GFR <15 on DEVELOPMENT MANAGER 3 THERAPUTIC HUMAN INR VALUES INDICATIONS NORMAL RANGES PROPHYLAXIS/TREATMENT OF: VENOUS THROMBOSIS 2.0-3.0 PULMONARY EMBOLISM 2.0-3.0 PREVENTION OF SYSTEMIC EMBOLISM FROM: TISSUE HEART VALVES 2.0-3.0 ACUTE MYOCARDIAL INFARCTION 2.0-3.0 VALVULAR HEART DISEASE 2.0-3.0 ATRIAL FIBRILLATION 2.0-3.0 MECHANICAL VALVES(HIGH RISK) 2.5-3.5 RECURRENT MYOCARDIAL INFARCTION 2.5-3.5 4 Troponin I Reference Interva l for [employer] LOCI: 99th Percentile= 0.00-0.045 ng/ml Risk Stratification: [...] 10,000 Procedures Date Code Description Status 01/15/2021 [address]228 Office/Outpatient Established Mo d MDM 30-39 Min Completed 01/15/2021 14890 Electrocardiogram Complete Compl eted Medical Devices Description No Information Available Encounters Type Date Location Provider Dx Diagnosis Office Visit 01/15/2021 11:30a [facility] GURDEEP Draper R09.1 Pleurisy Assessments Date Code Description Provider 01/15/2021 R09.1 Pleurisy GURDEEP Draper Plan of Treatment Future Appointment(s):* 07/23/2021 10:00 am - GURDEEP Draper at [facility] Functional Status Description No Information Available Mental Status Description No Information Available Referrals Description No Information Available
--- OUTSIDE RECORDS SUMMARY | 2021-03-25 10:28 | CCD | Continuity of Care Document ---
Author Author Zulma TAPIA DO Organization Unknown Address [address] [place] [address] Phone [phone] Care Team Providers Care Legal File Clerk Name Role Phone [place] AUTM [phone] Liat Schneider D.O. AUTM AUTM Unavailable Problems Description No Information Available [...] lb BMI (Body Mass Index) 28.4 kg/m2 [place] Body Weight 135 lb Weight 82.215 kg BSA (Body Surface Area) 1.94 m2 08/05/2020 1:58pm BP Systolic 140 mmHg BP Diastolic 102 mmHg Heart Rate 84 /min Respiratory Rate 16 /min Body Temperature 96.8 F Height 67 inches 5'7" Weight 192.00 lb BMI (Body Mass Index) 30.1 kg/m2 [place] Body Weight 135 lb Weight 87.091 kg BSA (Body Surface Area) 1.99 m2 Results Description No Information Available Procedures Description No Information Available Medical Devices Description No Information Available Encounters Description No Information Available Assessments Description No Information Available Plan of Treatment Future Appointment(s):* 03/25/2021 12:00 pm - Gabriela Tapia DO at [facility] * 03/31/2021 10:15 am - Gabriela Tapia DO at [facility] * 03/12/2021 2:00 pm - Gabriela Tapia DO at [facility] Functional Status Description No Information Available Mental Status Description No Information Available Referrals Description No Information Available
--- OUTSIDE RECORDS SUMMARY | 2021-03-25 10:28 | CCD | Continuity of Care Document ---
Author Zulma Cabrera Organization Unknown Address [place] [address] Phone [phone] Care Team Providers Care Certified Real Estate Appraiser Name Role Phone Liat Schneider D.O. AUTM [phone] Brijesh Caceres M.D. AUTM [phone] Gabriela Hunt DO AUTM [phone] Problems Active Problems Provider Date Essential hypertension [...] F O2 % BldC Oximetry 98 % [place] Body Weight 130 lb 05/27/2020 10:34am BP Systolic 122 mmHg BP Diastolic 78 mmHg Height 66.5 inches 5'6.50" Weight 192.00 lb BMI (Body Mass Index) 30.5 kg/m2 Heart Rate 77 /min Respiratory Rate 18 /min Body Temperature 98.5 F O2 % BldC Oximetry 98 % [place] Body Weight 130 lb Results Test Acquired Date Facility Test Result H/L Range Note CBC With Differential 01/15/2021 [place] [id number] [phone] White Blood Count 7.9 10 Normal 4.0-10.0 [...] 36.0-66.0 Lymph % 27.6 % Normal 24.0-44.0 [place] % 9.6 % High 2.0-8.0 Eos % 1.8 % Normal 0.0-3.0 Baso % 1.3 % High 0.0-1.0 Immature Granulocyte % 0.4 % Normal 0-3.0 Nucleated Red Blood Cell % 0.0 % Normal 0-0 Neutrophils # 4.7 10 Normal 1.5-8.5 Lymph # 2.2 10 Normal 1.5-5.0 [place] # 0.8 10 Normal 0.0-0.8 Eos # 0.1 10 Normal 0.0-0.5 Baso # 0.1 10 Normal 0.0-0.2 Comprehensive Metabolic Profil 01/15/[address] [address] [phone] Glucose, Fasting 95 mg/dL Normal 70-100 Blood Urea Nitrogen 12 mg/dL Normal 7-18 Creatinine For GFR 0.88 mg/dL Normal 0.55-1.30 Glomerular Filtration Rate > 60.0 Normal >60 1 Sodium Level 139 mEq/L Normal 136-145 Potassium [...] 1.1 Low 1.2-2.2 Laboratory test finding 01/15/[address] [address] [phone] D-Dimer Quant 361.67 ng/ml Normal <500 PT & Aptt 01/15/2021 [facility] nter [address] [place] [address] [phone] Prothrombin Time 13.2 seconds Normal 12.7-14.5 Inr 0.96 Normal 2 Partial Thromboplastin Time 29.2 seconds Normal 25.9-37.0 Laboratory test finding 01/15/[address] [address] [phone] Troponin I < 0.02 NG/ML Normal < 0.10 3 Order 01/15/2021 In House Orders EKG see report Ua dipstick Pnl Ur Strip.auto 12/24/2020 [facility] [place] [address] [phone] Color Ur DARK YELLOW 4 Appearance Ur CLEAR Clear pH Ur Strip 6.5 5-8 Sp Gr Ur Refractometry 1.005 1.005-1.030 Leukocyte esterase Ur Ql Strip SMALL Abnormal Negative 5 Nitrite Ur Ql Strip POSITIVE High Negative 6 Prot Ur Ql Strip NEGATIVE Negative Glucose Ur Strip.auto-mCnc NEGATIVE Negative Ketones Ur Ql Strip NEGATIVE Negative Urobilinogen Ur Ql 1 EU/dl 0.2-1 Eu/dl Bilirub Ur Ql Strip.auto NEGATIVE Negative RBC # Ur Strip NEGATIVE Negative Urine Microscopic? (Cif) Microscopic Adde <SEE NOTE> 7 Add On Microscopic 12/24/2020 [place] [address] [phone] WBC # Ur Manual 8-12 UCUM High 0-5 Cells UrnS Micro OCCASIONAL Bacteria UrnS Ql Micro SMALL AMOUNT High Negative Culture Urine 12/24/2020 [place] [address] [phone] Urine culture result Gram neg bacilli <SEE NOTE> 8 Bacteria Ur Cult ESCHERICHIA COLI 9 [place] count Less than 10,000 10 Gram Negative Panle 4 12/24/2020 [place] [address] [phone] Trimethoprim/Sulfamethoxazole <2/38 Susceptible Amoxicillin+Clavulanate [Susceptibility] by Minimum [...] Minimum inhibitory concentration (Boris) <16 Susceptible 1 Units are mL/min/1.73 m2 Chronic Kidney Disease Staging per NKF: Stage I & II GFR >=60 Normal to Mildly Decreased Stage III GFR 30-59 Moderately Decreased Stage IV GFR 15-29 Severely Decreased Stage V GFR <15 Very Little GFR Left ESRD GFR <15 on APPLIANCE TESTER 2 THERAPUTIC HUMAN INR VALUES INDICATIONS NORMAL RANGES PROPHYLAXIS/TREATMENT OF: VENOUS THROMBOSIS 2.0-3.0 PULMONARY EMBOLISM 2.0-3.0 PREVENTION OF SYSTEMIC EMBOLISM FROM: TISSUE HEART VALVES 2.0-3.0 ACUTE MYOCARDIAL INFARCTION 2.0-3.0 VALVULAR HEART DISEASE 2.0-3.0 ATRIAL FIBRILLATION 2.0-3.0 MECHANICAL VALVES(HIGH RISK) 2.5-3.5 RECURRENT MYOCARDIAL INFARCTION 2.5-3.5 3 Troponin I Reference Interva l for [employer] LOCI: 99th Percentile= 0.00-0.045 ng/ml Risk Stratification: <= 0.10 ng/ml Decreased Risk for Adverse Clinical Events. 0.10-1.50 ng/ml Increased Risk for Adv erse Clinical Events. Evaluation of additional criterion and/or repeat testing in 2-6 hours is suggested to rule out myocardial damage. >= 1.50 ng/ml Indicative of Myocardial Injury. 4 N39.0,R30.0 5 A Culture has been added to this specimen per established criteria 6 A Culture has been added to this specimen per established criteria 7 Microscopic Added 8 Gram neg bacilli results to follow 9 GRAM NEGATIVE NATE 10 Less than 10,000 Procedures Date Code Description Status 01/15/2021 533[address] Office/Outpatient Established Mo d MDM 30-39 Min Completed 01/15/2021 69570 Electrocardiogram Complete Compl eted Medical Devices Description No Information Available Encounters Type Date Location Provider Dx Diagnosis Office Visit 01/15/2021 11:30a [facility] GURDEEP Draper R09.1 Pleurisy Assessments Date Code Description Provider 01/15/2021 R09.1 Pleurisy GURDEEP Draper Plan of Treatment Future Appointment(s):* 07/23/2021 10:00 am - GURDEEP Draper at [facility] Functional Status Description No Information Available Mental Status Description No Information Available Referrals Description No Information Available
--- OUTSIDE RECORDS SUMMARY | 2021-03-25 10:28 | CCD | Continuity of Care Document ---
Author Author Zulma SCHNEIDER D.O. Organization Unknown Address [address] [place] [address] Phone [phone] Care Team Providers Care Zigzag Machine Operator Name Role Phone Liat Schneider D.O. AUTM [phone] Brijesh Caceres M.D. AUTM [phone] Gabriela Hunt DO AUTM [phone] Problems Active Problems Provider Date Essential hypertension [...] F O2 % BldC Oximetry 98 % [place] Body Weight 130 lb 05/27/2020 10:34am BP Systolic 122 mmHg BP Diastolic 78 mmHg Height 66.5 inches 5'6.50" Weight 192.00 lb BMI (Body Mass Index) 30.5 kg/m2 Heart Rate 77 /min Respiratory Rate 18 /min Body Temperature 98.5 F O2 % BldC Oximetry 98 % [place] Body Weight 130 lb Results Test Acquired Date Facility Test Result H/L Range Note Ua W/Culture If Indicated 01/19/2021 Rajesh Barrera [facility] [place] [address] [phone] Color Ur YELLOW 1 Appearance Ur CLEAR [...] Microscopic? (Cif) NO CBC With Differential 01/15/[address] [address] [phone] White Blood Count 7.9 10 Normal 4.0-10.0 [...] 36.0-66.0 Lymph % 27.6 % Normal 24.0-44.0 [place] % 9.6 % High 2.0-8.0 Eos % 1.8 % Normal 0.0-3.0 Baso % 1.3 % High 0.0-1.0 Immature Granulocyte % 0.4 % Normal 0-3.0 Nucleated Red Blood Cell % 0.0 % Normal 0-0 Neutrophils # 4.7 10 Normal 1.5-8.5 Lymph # 2.2 10 Normal 1.5-5.0 [place] # 0.8 10 Normal 0.0-0.8 Eos # 0.1 10 Normal 0.0-0.5 Baso # 0.1 10 Normal 0.0-0.2 Comprehensive Metabolic Profil 01/15/[address] [id number] [phone] Glucose, Fasting 95 mg/dL Normal 70-100 Blood [...] 1.1 Low 1.2-2.2 Laboratory test finding 01/15/[address] [id number] [phone] D-Dimer Quant 361.67 ng/ml Normal <500 PT & Aptt 01/15/2021 [facility] nter [address] [place] [address] [phone] Prothrombin Time 13.2 seconds Normal 12.7-14.5 Inr 0.96 Normal 3 Partial Thromboplastin Time 29.2 seconds Normal 25.9-37.0 Laboratory test finding 01/15/2021 [facility] [address] [place] [address] [phone] Troponin I < 0.02 NG/ML Normal < 0.10 4 Order 01/15/2021 In House Orders EKG see report Ua dipstick Pnl Ur Strip.auto 12/24/2020 [facility] [place] [address] [phone] Color Ur DARK YELLOW 5 Appearance Ur [...] <SEE NOTE> 8 Add On Microscopic 12/24/2020 [place] [address] [phone] WBC # Ur Manual 8-12 [facility] High 0-5 Cells UrnS Micro OCCASIONAL Bacteria UrnS Ql Micro SMALL AMOUNT High Negative Culture Urine 12/24/2020 [place] [address] [phone] Urine culture result Gram neg bacilli <SEE NOTE> 9 Bacteria Ur Cult ESCHERICHIA COLI 10 [place] count Less than 10,000 11 Gram Negative Panle 4 12/24/2020 [place] [address] [phone] Trimethoprim/Sulfamethoxazole <2/38 Susceptible Amoxicillin+Clavulanate [Susceptibility] by Minimum [...] Little GFR Left ESRD GFR <15 on [facility] 3 THERAPUTIC HUMAN INR VALUES INDICATIONS NORMAL RANGES PROPHYLAXIS/TREATMENT OF: VENOUS THROMBOSIS 2.0-3.0 PULMONARY EMBOLISM 2.0-3.0 PREVENTION OF SYSTEMIC EMBOLISM FROM: TISSUE HEART VALVES 2.0-3.0 ACUTE MYOCARDIAL INFARCTION 2.0-3.0 VALVULAR HEART DISEASE 2.0-3.0 ATRIAL FIBRILLATION 2.0-3.0 MECHANICAL VALVES(HIGH RISK) 2.5-3.5 RECURRENT MYOCARDIAL INFARCTION 2.5-3.5 4 Troponin I Reference Interva l for LP Amina LOCI: 99th Percentile= 0.00-0.045 ng/ml Risk Stratification: [...] 10,000 Procedures Date Code Description Status 01/15/2021 67672 Office/Outpatient Established Mo d MDM 30-39 Min Completed 01/15/2021 39126 Electrocardiogram Complete Compl eted Medical Devices Description No Information Available Encounters Type Date Location Provider Dx Diagnosis Office Visit 01/15/2021 11:30a [facility] GURDEEP Draper R09.1 Pleurisy Assessments Date Code Description Provider 01/15/2021 R09.1 Pleurisy GURDEEP Draper Plan of Treatment Future Appointment(s):* 07/23/2021 10:00 am - GURDEEP Draper at [facility] Functional Status Description No Information Available Mental Status Description No Information Available Referrals Description No Information Available
--- OUTSIDE RECORDS SUMMARY | 2021-03-25 10:28 | CCD | Continuity of Care Document ---
Author Zulma Cabrera Organization Unknown Address [place] [address] Phone [phone] Care Team Providers Care Labor Arbitrator Hearing Office Name Role Phone Liat Schneider D.O. AUTM Brijesh Caceres M.D. AUTM [phone] Gabriela Hunt DO AUTM [phone] Problems Active Problems Provider Date Essential hypertension [...] mouth as needed for diarrhea. 90caps K58.0 Lita Schneider D.O. 12/23/2019 Multivitamin Adult Tablets 1 [...] F O2 % BldC Oximetry 97 % [place] Body Weight 130 lb 01/15/2021 11:18am BP Systolic 118 mmHg BP Diastolic 72 mmHg Height 66.5 inches 5'6.50" Weight 184.25 lb BMI (Body Mass Index) 29.3 kg/m2 Heart Rate 78 /min Respiratory Rate 18 /min Body Temperature 98.1 F O2 % BldC Oximetry 98 % [place] Body Weight 130 lb Results Test Acquired Date Facility Test Result H/L Range Note Ua W/Culture If Indicated 01/19/2021 [facility] [place] [address] [phone] Color Ur YELLOW 1 Appearance Ur CLEAR [...] Microscopic? (Cif) NO CBC With Differential 01/15/[address] [address] [phone] White Blood Count 7.9 10 Normal 4.0-10.0 [...] 36.0-66.0 Lymph % 27.6 % Normal 24.0-44.0 [place] % 9.6 % High 2.0-8.0 Eos % 1.8 % Normal 0.0-3.0 Baso % 1.3 % High 0.0-1.0 Immature Granulocyte % 0.4 % Normal 0-3.0 Nucleated Red Blood Cell % 0.0 % Normal 0-0 Neutrophils # 4.7 10 Normal 1.5-8.5 Lymph # 2.2 10 Normal 1.5-5.0 [place] # 0.8 10 Normal 0.0-0.8 Eos # 0.1 10 Normal 0.0-0.5 Baso # 0.1 10 Normal 0.0-0.2 Comprehensive Metabolic Profil 01/15/[address] [address] [phone] Glucose, Fasting 95 mg/dL Normal 70-100 Blood [...] 1.1 Low 1.2-2.2 Laboratory test finding 01/15/[address] [address] [phone] D-Dimer Quant 361.67 ng/ml Normal <500 PT & Aptt 01/15/2021 [facility] nter [address] [place] [address] [phone] Prothrombin Time 13.2 seconds Normal 12.7-14.5 Inr 0.96 Normal 3 Partial Thromboplastin Time 29.2 seconds Normal 25.9-37.0 Laboratory test finding 01/15/2021 [facility] [address] [place] [address] [phone] Troponin I < 0.02 NG/ML Normal < 0.10 4 Order 01/15/2021 In House Orders EKG see report Ua dipstick Pnl Ur Strip.auto 12/24/[address] [facility] [place] [address] [phone] Color Ur DARK YELLOW 5 Appearance Ur [...] <SEE NOTE> 8 Add On Microscopic 12/24/2020 [place] [address] [phone] WBC # Ur Manual 8-12 UCUM High 0-5 Cells UrnS Micro OCCASIONAL Bacteria UrnS Ql Micro SMALL AMOUNT High Negative Culture Urine 12/24/2020 [place] [address] [phone] Urine culture result Gram neg bacilli <SEE NOTE> 9 Bacteria Ur Cult ESCHERICHIA COLI 10 [place] count Less than 10,000 11 Gram Negative Panle 4 12/24/2020 [place] [address] [phone] Trimethoprim/Sulfamethoxazole <2/38 Susceptible Amoxicillin+Clavulanate [Susceptibility] by Minimum [...] Little GFR Left ESRD GFR <15 on [employer] 3 THERAPUTIC HUMAN INR VALUES INDICATIONS NORMAL RANGES PROPHYLAXIS/TREATMENT OF: VENOUS THROMBOSIS 2.0-3.0 PULMONARY EMBOLISM 2.0-3.0 PREVENTION OF SYSTEMIC EMBOLISM FROM: TISSUE HEART VALVES 2.0-3.0 ACUTE MYOCARDIAL INFARCTION 2.0-3.0 VALVULAR HEART DISEASE 2.0-3.0 ATRIAL FIBRILLATION 2.0-3.0 MECHANICAL VALVES(HIGH RISK) 2.5-3.5 RECURRENT MYOCARDIAL INFARCTION 2.5-3.5 4 Troponin I Reference Interva l for Ubiterra LOCI: 99th Percentile= 0.00-0.045 ng/ml Risk Stratification: [...] 10,000 Procedures Date Code Description Status 03/05/2021 82515 Office/Outpatient Established Lo w MDM 20-29 Min Completed 01/15/2021 35517 Office/Outpatient Established Mo d MDM 30-39 Min Completed 01/15/2021 45952 Electrocardiogram Complete Compl eted Medical Devices Description No Information Available Encounters Type Date Location Provider Dx Diagnosis Office Visit 03/05/2021 9:30a [facility] GURDEEP Draper Z01.818 Encounter for other preproce dural examination N62 Hypertrophy of breast K21.00 Gastro-esophageal reflux dis with esophagitis, without bleed Office Visit 01/15/2021 11:30a [facility] GURDEEP Draper R09.1 Pleurisy Assessments Date Code Description Provider 03/05/2021 Z01.818 Encounter for other preprocedura l examination GURDEEP Draper 03/05/2021 N62 Hypertrophy of breast GURDEEP Morgan 03/05/2021 K21.00 Gastro-esophageal re flux disease with esophagitis, without bleeding GURDEEP Draper 01/15/2021 R09.1 Pleurisy GURDEEP Draper Plan of Treatment Future Appointment(s):* 07/23/2021 10:00 am - GURDEEP Draper at [facility] Functional Status Description No Information Available Mental Status Description No Information Available Referrals Description No Information Available
--- OUTSIDE RECORDS SUMMARY | 2021-03-25 10:28 | CCD | Continuity of Care Document ---
Author Zulma Cabrera Organization Unknown Address [place] [address] Phone [phone] Care Team Providers Care Linen Controller Name Role Phone Liat Schneider D.O. AUTM Brijesh Caceres M.D. AUTM [phone] Gabriela Hunt DO AUTM [phone] Problems Active Problems Provider Date Essential hypertension [...] F O2 % BldC Oximetry 98 % [place] Body Weight 130 lb 05/27/2020 10:34am BP Systolic 122 mmHg BP Diastolic 78 mmHg Height 66.5 inches 5'6.50" Weight 192.00 lb BMI (Body Mass Index) 30.5 kg/m2 Heart Rate 77 /min Respiratory Rate 18 /min Body Temperature 98.5 F O2 % BldC Oximetry 98 % [place] Body Weight 130 lb Results Test Acquired Date Facility Test Result H/L Range Note Order 01/15/2021 In House Orders EKG see report Ua dipstick Pnl Ur Strip.auto 12/24/2020 [facility] [place] [facility] [place] [address] [phone] Color Ur DARK YELLOW 1 Appearance Ur CLEAR Clear pH Ur Strip 6.5 5-8 Sp Gr Ur Refractometry 1.005 1.005-1.030 Leukocyte esterase Ur Ql Strip SMALL Abnormal Negative 2 Nitrite Ur Ql Strip POSITIVE High Negative 3 Prot Ur Ql Strip NEGATIVE Negative Glucose Ur Strip.auto-mCnc NEGATIVE Negative Ketones Ur Ql Strip NEGATIVE Negative Urobilinogen Ur Ql 1 EU/dl 0.2-1 Eu/dl Bilirub Ur Ql Strip.auto NEGATIVE Negative RBC # Ur Strip NEGATIVE Negative Urine Microscopic? (Cif) Microscopic Adde <SEE NOTE> 4 Add On Microscopic 12/24/2020 [place] [address] [phone] WBC # Ur Manual 8-12 UCUM High 0-5 Cells UrnS Micro OCCASIONAL Bacteria UrnS Ql Micro SMALL AMOUNT High Negative Culture Urine 12/24/2020 [place] [address] [phone] Urine culture result Gram neg bacilli <SEE NOTE> 5 Bacteria Ur Cult ESCHERICHIA COLI 6 [place] count Less than 10,000 7 Gram Negative Panle 4 12/24/2020 [place] [address] [phone] Trimethoprim/Sulfamethoxazole <2/38 Susceptible Amoxicillin+Clavulanate [Susceptibility] by Minimum [...] Minimum inhibitory concentration (Boris) <16 Susceptible 1 N39.0,R30.0 2 A Culture has been added to this specimen per established criteria 3 A Culture has been added to this specimen per established criteria 4 Microscopic Added 5 Gram neg bacilli results to follow 6 GRAM NEGATIVE NATE 7 Less than 10,000 Procedures Date Code Description Status 01/15/2021 44223 Office/Outpatient Established Mo d MDM 30-39 Min Completed 01/15/2021 08386 Electrocardiogram Complete Compl eted Medical Devices Description No Information Available Encounters Type Date Location Provider Dx Diagnosis Office Visit 01/15/2021 11:30a [facility] GURDEEP Draper R09.1 Pleurisy Assessments Date Code Description Provider 01/15/2021 R09.1 Pleurisy GURDEEP Draper Plan of Treatment Future Appointment(s):* 07/23/2021 10:00 am - GURDEEP Draper at [facility] 01/15/2021 - GURDEEP Draper* R09.1 Pleurisy* New Labs:* CBC With Differential, Scheduled: 01/15/21 * Comprehensive Metabolic Profil, Scheduled: 01/15/21 * Ddimer Quant, Scheduled: 01/15/21 * PT & Aptt, Scheduled: 01/15/21 * Troponin I, Scheduled: 01/15/21 * FT4&TSH Panel, Scheduled: 01/15/21 * New Xrays:* Chest 2 Views, Scheduled: 01/15/21 * Comments:* Please go to the hospital to get STAT blood work and chest x ray completed. EKG was normal at today's visit. Pain to the left scapular area. Functional Status Description No Information Available Mental Status Description No Information Available Referrals Description No Information Available
--- OUTSIDE RECORDS SUMMARY | 2021-03-25 10:29 | CCD ---
Author Author [facility] Organization [facility] Address Unknown Phone Unavailable Care Team Providers Care Protection Chief [employer] Name Role Phone ANIKET-STEVAN, LIAT DO Unavailable Unavailable ANIKET-STEVAN, LIAT DO Unavailable Unavailable ANIKET-STEVAN, LIAT DO Unavailable Unavailable ANIKET-STEVAN, LIAT DO Unavailable Unavailable ANIKET-STEVAN, LIAT DO Unavailable Unavailable ANIKET-STEVAN, LIAT DO Unavailable Unavailable ANIKET-STEVAN, LIAT DO Unavailable Unavailable ANIKET-STEVAN, LIAT DO Unavailable Unavailable ANIKET-STEVAN, LIAT DO Unavailable Unavailable ANIKET-STEVAN, LIAT DO Unavailable Unavailable ANIKET-STEVAN, LIAT DO Unavailable Unavailable ANIKET-STEVAN, LIAT DO Unavailable Unavailable ANIKET-STEVAN, LIAT DO Unavailable Unavailable ANIKET-STEVAN, LIAT DO Unavailable Unavailable ANIKET-STEVAN, LIAT DO Unavailable Unavailable ANIKET-STEVAN, LIAT DO Unavailable Unavailable ANIKET-STEVAN, LIAT DO Unavailable Unavailable ANIKET-STEVAN, LIAT DO Unavailable Unavailable ANIKET-STEVAN, LIAT DO Unavailable Unavailable ANIKET-STEVNA, LIAT DO Unavailable Unavailable ANIKET-STEVAN, LIAT DO Unavailable Unavailable ANIKET-STEVAN, LIAT DO Unavailable Unavailable ANIKET-STEVAN, LIAT DO Unavailable Unavailable ANIKET-STEVAN, LIAT DO Unavailable Unavailable ANIKET-STEVAN, LIAT DO Unavailable Unavailable ANIKET-STEVAN, LIAT DO Unavailable Unavailable ANIKET-STEVAN, LIAT DO Unavailable Unavailable ANIKET-STEVAN, LIAT DO Unavailable Unavailable ANIKET-STEVAN, LIAT DO Unavailable Unavailable ANIKET-STEVAN, LIAT DO Unavailable Unavailable ANIKET-STEVAN, LIAT DO Unavailable Unavailable ANIKET-STEVAN, LITA DO Unavailable Unavailable ANIKET-STEVAN, LIAT DO Unavailable Unavailable ANIKET-STEVAN, LIAT DO Unavailable Unavailable ANIKET-STEVAN, LIAT DO Unavailable Unavailable ANIKET-STEVAN, LIAT DO Unavailable Unavailable ANIKET-STEVAN, LIAT DO Unavailable Unavailable ANIKET-STEVAN, LIAT DO Unavailable Unavailable ANIKET-STEVAN, LIAT DO Unavailable Unavailable ANIKET-STEVAN, LIAT DO Unavailable Unavailable ANIKET-STEVAN, LIAT DO Unavailable Unavailable ANIKET-STEVAN, LIAT DO Unavailable Unavailable ANIKET-STEVAN, LIAT DO Unavailable Unavailable ANIKET-STEVAN, LIAT DO Unavailable Unavailable ANIKET-STEVAN, LIAT DO Unavailable Unavailable ANIKET-STEVAN, LIAT DO Unavailable Unavailable ANIKET-STEVAN, LIAT DO Unavailable Unavailable ANIKET-STEVAN, LIAT DO Unavailable Unavailable ANIKET-STEVAN, LIAT DO Unavailable Unavailable ANIKET-STEVAN, LIAT DO Unavailable Unavailable ANIKET-STEVAN, LIAT DO Unavailable Unavailable ANIKET-STEVAN, LIAT DO Unavailable Unavailable ANIKET-STEVAN, LIAT DO Unavailable Unavailable ANIKET-STEVAN, ILAT DO Unavailable Unavailable ANIKET-STEVAN, LIAT DO Unavailable Unavailable ANIKET-STEVAN, LIAT DO Unavailable Unavailable ANIKET-STEVAN, LIAT DO Unavailable Unavailable ANIKET-STEVAN, LIAT DO Unavailable Unavailable ANIKET-STEVAN, LIAT DO Unavailable Unavailable ANIKET-STEVAN, LIAT DO Unavailable Unavailable ANIKET-STEVAN, LIAT DO Unavailable Unavailable ANIKET-STEVAN, LIAT DO Unavailable Unavailable ANIKET-STEVAN, LIAT DO Unavailable Unavailable ANIKET-STEVAN, LIAT DO Unavailable Unavailable ANIKET-STEVAN, LIAT DO Unavailable Unavailable ANIKET-STEVAN, LIAT DO Unavailable Unavailable ANIKET-STEVAN, LIAT DO Unavailable Unavailable ANIKET-STEVAN, LIAT DO Unavailable Unavailable ANIKET-STEVAN, LIAT DO Unavailable Unavailable ANIKET-STEVAN, LIAT DO Unavailable Unavailable ANIKET-STEVAN, LIAT DO Unavailable Unavailable ANIKET-STEVAN, LIAT DO Unavailable Unavailable ANIKET-STEVAN, LIAT DO Unavailable Unavailable ANIKET-STEVAN, LIAT DO Unavailable Unavailable ANIKET-STEVAN, LIAT DO Unavailable Unavailable ANIKET-STEVAN, LIAT DO Unavailable Unavailable ANIKET-STEVAN, LIAT DO Unavailable Unavailable ANIKET-TSEVAN, LIAT DO Unavailable Unavailable ANIKET-STEVAN, LIAT DO Unavailable Unavailable ANIKET-STEVAN, LIAT DO Unavailable Unavailable ANIKET-STEVAN, LIAT DO Unavailable Unavailable ANIKET-STEVAN, LIAT DO Unavailable Unavailable ANIKET-STEVAN, LIAT DO Unavailable Unavailable ANIKET-STEVAN, LIAT DO Unavailable Unavailable Abriss, B Pio GARCÍA Unavailable Unavailable Abriss, B Pio GARCÍA Unavailable Unavailable Abriss, B Pio GARCÍA Unavailable Unavailable Abriss, B Pio GARCÍA Unavailable Unavailable Abriss, B Pio GARCÍA Unavailable Unavailable Abriss, B Pio GARCÍA Unavailable Unavailable Abriss, B Pio GARCÍA Unavailable Unavailable Abriss, B Pio GARCÍA Unavailable Unavailable Abriss, B Pio GARCÍA Unavailable Unavailable Abriss, B Pio GARCÍA Unavailable Unavailable Abriss, B Pio GARCÍA Unavailable Unavailable Abriss, B Pio GARCÍA Unavailable Unavailable Abriss, B Pio GARCÍA Unavailable Unavailable Abriss, B Pio GARCÍA Unavailable Unavailable Abriss, B Pio GARCÍA Unavailable Unavailable Abriss, B Pio GARCÍA Unavailable Unavailable Abriss, B Pio GARCÍA Unavailable Unavailable Abriss, B Pio GARCÍA Unavailable Unavailable Abriss, B Pio GARCÍA Unavailable Unavailable Doctor Provided, Family PHYS No Family Unavailable U navailable O'tadeo, A Des PA Unavailable Unavailable O'tadeo, A Des PA Unavailable Unavailable O'tadeo, A Des PA Unavailable Unavailable O'tadeo, A Des PA Unavailable Unavailable O'tadeo, A Des PA Unavailable Unavailable O'tadeo, A Des PA Unavailable Unavailable O'tadeo, A Des PA Unavailable Unavailable O'tadeo, A Des PA Unavailable Unavailable O'tadeo, A Des PA Unavailable Unavailable O'tadeo, A Des PA Unavailable Unavailable O'tadeo, A Des PA Unavailable Unavailable O'tadeo, A Des PA Unavailable Unavailable O'tadeo, A Des PA Unavailable Unavailable O'tadeo, A Des PA Unavailable Unavailable O'tadeo, A Des PA Unavailable Unavailable O'tadeo, A Des PA Unavailable Unavailable O'tadeo, A Des PA Unavailable Unavailable O'tadeo, A Des PA Unavailable Unavailable O'tadeo, A Des PA Unavailable Unavailable O'tadeo, A Des PA Unavailable Unavailable O'tadeo, A Des PA Unavailable Unavailable O'tadeo, A Des PA Unavailable Unavailable O'tadeo, A Des PA Unavailable Unavailable O'tadeo, A Des PA Unavailable Unavailable O'tadeo, A Des PA Unavailable Unavailable O'tadeo, A Des PA Unavailable Unavailable O'tadeo, A Des PA Unavailable Unavailable O'tadeo, A Des PA Unavailable Unavailable O'tadeo, A Des PA Unavailable Unavailable O'tadeo, A Des PA Unavailable Unavailable O'tadeo, A Des PA Unavailable Unavailable O'tadeo, A Des PA Unavailable Unavailable O'tadeo, A Des PA Unavailable Unavailable Letha Lemus MD Unavailable Unavailable Roberta, Magaly Santiago MD Unavailable Unavailable Roberta, Magaly Santiago MD Unavailable Unavailable Roberta, Magaly Santiago MD Unavailable Unavailable Roberta, Magaly Santiago MD Unavailable Unavailable Roberta, Magaly Santiago MD Unavailable Unavailable Roberta, Magaly Santiago MD Unavailable Unavailable Roberta, Magaly Snatiago MD Unavailable Unavailable Roberta, Magaly Santiago MD Unavailable Unavailable Roberta, Magaly Santiago MD Unavailable Unavailable Roberta, Magaly Santiago MD Unavailable Unavailable RobertaMagaly yang MD Unavailable Unavailable RobertaMagaly yang MD Unavailable Unavailable Roberta, Magaly Santiago MD Unavailable Unavailable Roberta, Magaly Santiago MD Unavailable Unavailable Roberta, Magaly Santiago MD Unavailable Unavailable Roberta, Magaly Santiago MD Unavailable Unavailable Roberta, Magaly Santiago MD Unavailable Unavailable Roberta, Magaly Santiago MD Unavailable Unavailable Roberta, Magaly Santiago MD Unavailable Unavailable Roberta, Magaly Santiago MD Unavailable Unavailable Roberta, R Jack MD Unavailable Unavailable Roberta, R Jack MD Unavailable Unavailable Roberta, R Jack MD Unavailable Unavailable Roberta, R Jack MD Unavailable Unavailable Roberta, R Jack MD Unavailable Unavailable Roberta, R Jack MD Unavailable Unavailable Roberta, R Jack MD Unavailable Unavailable Roberta, R Jack MD Unavailable Unavailable Roberta, R Jack MD Unavailable Unavailable Roberta, R Jack MD Unavailable Unavailable Roberta, R Jack MD Unavailable Unavailable Roberta, R Jack MD Unavailable Unavailable Roberta, R Jack MD Unavailable Unavailable Roberta, R Jack MD Unavailable Unavailable Roberta, R Jack MD Unavailable Unavailable Roberta, R Jack MD Unavailable Unavailable Roberta, R Jack MD Unavailable Unavailable Roberta, R Jack MD Unavailable Unavailable Roberta, R Jack MD Unavailable Unavailable Orberta, R Jack MD Unavailable Unavailable Roberta, R Jack Unavailable Unavailable Roberta, R Jack MD Unavailable Unavailable Roberta, R Jack MD Unavailable Unavailable Roberta, R Jack MD Unavailable Unavailable Roberta, R Jack MD Unavailable Unavailable Roberta, R Jack MD Unavailable Unavailable Roberta, R Jack MD Unavailable Unavailable Roberta, R Jack MD Unavailable Unavailable Roberta, R Jack MD Unavailable Unavailable Roberta, R Jack MD Unavailable Unavailable Roberta, R Jack MD Unavailable Unavailable Roberta, R Jack MD Unavailable Unavailable Roberta, R Jack Unavailable Unavailable Roberta, R Jack MD Unavailable Unavailable Roberta, R Jack MD Unavailable Unavailable Roberta, R Jack Unavailable Unavailable Roberta, R Jack MD Unavailable Unavailable Roberta, R Jack MD Unavailable Unavailable Roberta, R Jack MD Unavailable Unavailable Roberta, R Jack Unavailable Unavailable Roberta, R Jack MD Unavailable Unavailable Roberta, R Jack MD Unavailable Unavailable Roberta, R Jack MD Unavailable Unavailable Roberta, R Jack Unavailable Unavailable Roberta, R Jack MD Unavailable Unavailable Roberta, R Jack MD Unavailable Unavailable Roberta, R Jack MD Unavailable Unavailable Roberta, R Jack MD Unavailable Unavailable Roberta, R Jack MD Unavailable Unavailable Roberta, R Jack MD Unavailable Unavailable Roberta, R Jack MD Unavailable Unavailable Roberta, R Jack MD Unavailable Unavailable Roberta, R Jack MD Unavailable Unavailable Roberta, R Jack MD Unavailable Unavailable Roberta, R Jack MD Unavailable Unavailable Roberta, R Jack MD Unavailable Unavailable Roberta, R Jack MD Unavailable Unavailable Roberta, R Ajck MD Unavailable Unavailable Roberta, R Jack MD Unavailable Unavailable of L.C., Medicine Occupation Unavailable Unavailable Enrique Salgado MD Unavailable Unavailable Re-disclosure Warning The records that you are about to access may contain information from federally-assisted alcohol or drug abuse programs. If such information is present, then the following federally mandated warning applies: This information has been disclosed to you from records protected by federal confidentiality rules (42 CFR part 2). The federal rules prohibit you from making any further disclosure of this information unless further disclosure is expressly permitted by the written consent of the person to whom it pertains or as otherwise permitted by 42 CFR part 2. A general authorization for the release of medical or other information is NOT sufficient for this purpose. The Federal rules restrict any use of the information to criminally investigate or prosecute any alcohol or drug abuse patient.The records that you are about to access may contain highly sensitive health information, the redisclosure of which is protected by Article 27-F of the [place] Public [employer] law. If you continue you may have access to information: Regarding HIV / AIDS; Provided by facilities licensed or operated by the [place] Office of Mental Health; or Provided by the [place] Office for People With Developmental Disabilities. If such information is present, then the following [place] [facility] mandated warning applies: This information has been disclosed to you from confidential records which are protected by state law. State law prohibits you from making any further disclosure of this information without the specific written consent of the person to whom it pertains, or as otherwise permitted by law. Any unauthorized further disclosure in violation of state law may result in a fine or alf sentence or both. A general authorization for the release of medical or other information is NOT sufficient authorization for further disc losure. Allergies and Adverse Reactions Type Description Substance Reaction Status Data Source(s ) Drug allergy No Known Drug Allergies No Known Drug Allergies [facility] Food allergy No Known Food Allergies No Known Food Allergies [facility] Family History Family Member Name Family Member Gender Family Member Status Date o f Status Description Data Source(s) Unknown Condition [facility] Unknown Condition [facility] Unknown Condition [facility] Unknown Unknown Problem [facility] ([facility]) Encounters Encounter Providers Location Date Indications Data Source(s ) Outpatient Attender: Des MACKENZIE Family [facility] 03/05/2021 09:30:00 AM EDT [facility] ([facility]) Outpatient Attender: Wei Salgado MD 01/19/2021 04:30: 00 PM EDT Z11.3 [facility] Z11.3 Outpatient Attender: Wei Salgado MDReferrer: No Family Doctor Provided 01/19/2021 03:11:00 PM EDT - 01/19/2021 04:18:00 PM EDT [facility] Outpatient Attender: Des MACKENZIE [facility] 01/15/2021 11:30:00 AM EDT [facility] ([facility]) Outpatient Attender: Wei Salgado MD 12/24/2020 09:41:00 AM EDT N39.0,R30.0 [facility] N39.0,R30.0 Outpatient Attender: Wei Salgado MDReferrer: LIAT MORALES DO 12/16/2020 09:45:00 AM EDT - 12/16/2020 10:47:00 AM EDT [facility] Outpatient Attender: Letha Lemus MDReferrer: Jack Granados MD 10/27/2020 02:22:00 PM EDT - 10/27/2020 03:16:00 PM EDT [facility] Outpatient Attender: Letha Lemus MD 10/19/2020 1 2:51:00 PM EDT LEFT ARMPIT/BREAST ; LUMP [facility] LEFT ARMPIT/BREAST ; LUMP Outpatient Attender: Letha Lemus MD 10/16/2020 04:43:0 0 PM EDT [facility] Outpatient Attender: Letha Lemus MDReferrer: Jack Granados MD 10/16/2020 01:43:00 PM EDT - 10/16/2020 02:37:00 PM EDT [facility] Outpatient Attender: Kely 08/26/2020 10:57:0 0 AM EDT COLLECTION [facility] COLLECTION Outpatient Attender: Jack Granados MD 08/26/2020 10:44:00 AM EDT [facility] Outpatient Attender: Pio Caceres/Mikayla/Joseph/Re indl 03/20/2020 01:15:00 PM EDT [facility] ([facility] Outpatient Attender: Des MACKENZIE [facility] 02/18/2020 09:20:00 AM EDT [facility] ([facility]) Outpatient Attender: Des MACKENZIE [facility] 02/03/2020 08:45:00 AM EDT [facility] ([facility]) Medications Medication Brand Name Start Date Product Form Dose Route Admi nistrative Instructions Pharmacy Instructions Status Indications Reaction Description Data Source(s) NITROFURANTOIN, MACROCRYSTALS 25 MG / Ni trofurantoin, Monohydrate 75 MG Oral Capsule Nitrofurantoin Monohyd/M-Cryst (Macrobid) 100 mg capsule Nitrofurantoin Monohyd/M-Cryst (Macrobid) 100 mg capsule 12/27/2020 05:42:43 PM EDT 100 MG completed [facility] doxycycline hyclate 100 MG Oral Capsule Doxycycline Hyclate Doxycycline Hyclate 10/28/2020 05:31:17 PM EDT 100 MG completed [facility] Levonorgestrel Levonorgestrel (Kyleena) 17.5 mcg/24 hrs (5 yrs) 19.5 mg intrauterine device Levonorgestrel (Kyleena) 17.5 mcg/24 hrs (5 yrs) 19.5 mg intrauterine device 10/27/2020 03:18:04 PM EDT 1 device completed [facility] Azithromycin 10/19/2020 11:44:59 AM EDT 1000 MG co mpleted [facility] Desogestrel-Ethinyl Estradiol (Enskyce) 0.15-0.03 mg tablet 10/16/2020 02:07:23 PM EDT 1 TAB completed [facility] Dicyclomine Hydrochloride 10 MG Oral Capsule Dicyclomine 10/16/2020 02:06:40 PM EDT 10 MG active [facility] Amitriptyline Hydrochloride 25 MG Oral Tablet Amitriptyline 10/16/2020 02:05:50 PM EDT 12.5 MG active [facility] Esomeprazole 20 MG Delayed Release Oral Capsule Esomeprazole Magnesium (Nexium) 20 mg capsule,delayed release(DR/EC) Esomeprazole Magnesium (Nexium) 20 mg capsule,delayed release(DR/EC) 10/16/2020 02:05:33 PM EDT 20 MG active [facility] Purified Protein Derivative of Tuberculi n 50 UNT/ML Injectable Solution tuberculin PPD tuberculin PPD 08/26/2020 10:44:36 AM EDT 0.1 ML completed [facility] Purified Protein Derivative of Tuberculi n 50 UNT/ML Injectable Solution tuberculin PPD tuberculin PPD 08/26/2020 10:44:36 AM EDT 0.1 ML [facility] 20 mg 02/26/2020 12:00:00 AM EDT capsule,delayed release (DR/EC) 30 TAKE ONE CAPSULE BY MOUTH EVERY DAY TAKE ONE CAPSULE BY MOUTH EVERY DAY SOLD: 02/26/2020 [facility] Esomeprazole 20 MG Delayed Release Oral Capsule ESOMEPRAZOLE MAGNESIUM 02/26/2020 12:00:00 AM EDT capsule,delayed release(DR/EC) 30 TAKE ONE CAPSULE BY MOUTH EVERY DAY TAKE ONE CAPSULE BY MOUTH EVERY DAY SOLD: 05/20/2020 [facility] Isibloom 28 Day Pack 0.15-0.03 mg DESOGESTREL-ETHINYL ESTRAD IOL 02/18/2020 12:00:00 AM EDT tablet 84 TAKE ONE TABLET BY MOUTH EVERY DAY TAKE ONE TABLET BY MOUTH EVERY DAY SOLD: 02/26/2020 [facility] 10 mg 02/03/2020 12:00:00 AM EDT tablet 90 TAKE ONE TABLET BY MOUTH AT BEDTIME TAKE ONE TABLET BY MOUTH AT BEDTIME SOLD: 02/04/2020 [facility] 1,250 mcg (50,000 unit) 02/03/2020 12:00:00 AM EDT capsule 12 TAKE 1 CAPSULE BY MOUTH WEEKLY FOR 12 WEEKS TAKE 1 CAPSULE BY MOUTH WEEKLY FOR 12 WEEKS SOLD: 02/04/2020 [facility] Ergocalciferol 04477 UNT Oral Capsule Vitamin D (Ergocalcife rol) 02/03/2020 12:00:00 AM EDT active [facility] ([facility]) Amitriptyline Hydrochloride 10 MG Oral Tablet Amitriptyline HCL 02/03/2020 12:00:00 AM EDT active [facility] ([facility]) Amoxicillin 875 MG / Clavulanate 125 MG Oral Tablet Am oxicillin/Clavulanate Potassium 02/03/2020 12:00:00 AM EDT ORAL completed [facility] ([facility]) 875-125 mg 02/03/2020 12:00:00 AM EDT tablet 20 TAKE 1 TABLET BY MOUTH EVERY 12 HOURS TAKE 1 TABLET BY MOUTH EVERY 12 HOURS SOLD: 02/04/2020 [facility] Amitriptyline Hydrochloride 25 MG Oral Tablet Amitriptyline HCL 12/23/2019 12:00:00 AM EDT completed [facility] ([facility]) Insurance Providers Payer name Policy type / Coverage type Policy ID Covered constitution party ID Covered constitution party's relationship to delgado Policy Delgado Plan Information [place] 306/806 [id number] MO2 [id number] [place] 306/806 [id number] MO2 [id number] [place] 306/806 [id number] MO2 [id number] [employer] BC/BS Commercial [id number] Family Dependent [employer] BC/BS Commercial [id number] [employer] BC/BS Commercial [id number] Family Dependent [employer] BC/BS Commercial [id number] Family Dependent [employer] Workers Compensation [id number] Self [id number] [employer] Workers Compensation [id number] Self [id number] ANSI-Commercial [id number] ANSI-Commercial [id number] [place] P[place] 302/307 [id number] DA2 [id number] ANSI-Commercial [id number] [employer] Commercial [id number] Family Dependent [id number] [employer] Commercial [id number] Family Dependent [id number] [employer] Commercial [id number] Family Dependent [id number] [employer] Commercial [id number] Family Dependent [id number] [facility] [id number] MO2 [id number] BS/W/Id#Prefix/W ALL #'S Commercial [id number] Family Depende nt [place] [id number] V R O [id number] C [id number] SELF PAY ONLY [facility] [id number] MO2 [id number] MEDICAID [id number] FA2 [id number] ANSI-Medicaid [id number] ANSI-Commercial [id number] ANSI-Commercial [id number] Problems, Conditions, and Diagnoses No Information Surgeries/Procedures Procedure Description Date Indications Data Source(s) OFFICE OUTPATIENT VISIT 15 MINUTES 03/05/2021 12:00:[address] [facility] ([facility]) Electrocardiogram Complete 01/15/2021 12:00:[address] [facility] ([facility]) OFFICE OUTPATIENT VISIT 25 MINUTES [facility] Urine culture (procedure) 12/24/2020 12:00:00 AM [facility] Ultrasonography of breast (procedure) 10/19/2020 01:12 :00 PM [facility] Urine culture (procedure) 10/16/2020 12:00:00 AM [facility] Chlamydia/Neisseria (PCR) 10/16/2020 12:00:00 AM [facility] Results ID Date Data Source [id number] 03/20/2021 10:30:[address] [facility] ([facility]) Name Value Range Interpretation Code Description Data Susan rce(s) Supporting Document(s) Coronavirus 2019 Nasopharygeal Laboratory test result [facility] ([facility]) ASSAY INFORMATION: Real Time RT-PCR NOTE: The COVID-19 assay has been cleared by the U.S. Food and Drug Administration under the Emergency Use Authorization (EUA). [place] and [place] are designated as high complexity laboratories by the Clinical Laboratory Improvement Amendments of 1988(CLIA) and are qualified to perform this test. Not Detected ID Date Data Source [id number] 03/20/2021 09:52:[address] [facility] ([facility]) Name Value Range Interpretation Code Description Data Ussan rce(s) Supporting Document(s) Glucose, Fasting 83 mg/dL 70-100 Normal (applies to non-numeric results) [facility] ([facility]) Creatinine For GFR 1.01 mg/dL 0.55-1.30 Normal (applies to non -numeric results) [facility] ([facility]) Blood Urea Nitrogen 15 mg/dL 7-18 Normal (applies to non-nume dee results) [facility] ([facility]) Sodium Level 139 meq/L 136-145 Normal (applies to non-numeric res ults) [facility] Glomerular Filtration Rate Laboratory test result Normal (applies to non- numeric results) [facility] ([facility]) <content>Units are mL/min/1.73 m2</content>
<content></content>
<content>Chronic Kidney Disease Staging per NKF:</content>
<content></content>
<content>Stage I & II GFR >=60 Normal to Mildly Decreased</content>
<content>Stage III GFR 30-59 Moderately Decreased</content>
<content>Stage IV GFR 15-29 Severely Decreased</content>
<content>Stage V GFR <15 Very Little GFR Left</content>
<content>ESRD GFR <15 on CONTINUITY DIRECTOR</content>
<content></content> Potassium Serum 4.9 meq/L 3.5-5.1 Normal (applies to non-numeric results) [facility] Chloride Level 110 meq/L 98-107 Above high normal [facility] ([facility]) Carbon Dioxide Level 25 meq/L 21-32 Normal (applies to non-num cindy results) [facility] ([facility]) Anion Gap 4 meq/L 8-[address] [facility] ( [facility]) Calcium Level 9.6 mg/dL 8.5-10.1 Normal (applies to non-numeric re sults) [facility] Ast/Sgot 15 U/L 7-37 Normal (applies to non-numeric resul ts) [facility] ([facility]) Alkaline Phosphatase 117 U/L 45-117 Normal (applies to non-num cindy results) [facility] ([facility]) Alt/SGPT 21 U/L 12-78 Normal (applies to non-numeric resul ts) [facility] ([facility]) Total Protein 7.5 GM/DL 6.4-8.2 Normal (applies to non-numeric re sults) [facility] ([facility]) Bilirubin,Total 0.4 mg/dL 0.2-1.0 Normal (applies to non-numeric results) [facility] ([facility]) Albumin 3.8 GM/DL 3.2-5.2 Normal (applies to non-numeric resul ts) [facility] ([facility]) Albumin/Globulin Ratio 1.0 1.2-2.[address] [facility] ([facility]) ID Date Data Source [id number] 03/20/2021 09:52:00 AM EDT [facility] ([facility]) Name Value Range Interpretation Code Description Data Susan rce(s) Supporting Document(s) Red Blood Count 4.46 10 4.00-5.40 Normal (applies to non-numeric results) [facility] White Blood Count 5.2 10 4.0-10.0 Normal (applies to non-numeri c results) [facility] Mean Corpuscular Volume 92.6 fl 80.0-96.0 Normal ( applies to non-numeric results) [facility]) Hemoglobin 13.1 g/dL 12.0-15.5 Normal (applies to non-numeric resul ts) [facility]) Hematocrit 41.3 % 36.0-47.0 Normal (applies to non-numeric resul ts) [facility]) Mean Corpuscular Hemoglobin 29.4 pg 27.0-33.0 Norm al (applies to non-numeric results) [facility] ([facility]) Red Cell Distribution Width 13.4 % 11.5-14.5 Norm al (applies to non-numeric results) [facility] Mean Corpuscular HGB Conc 31.7 g/dL 32.0-36.5 Below low normal [facility]) Platelet Count, Automated 300 10 150-450 Normal (applies to non-numeric results) [facility]) Neutrophils % 46.2 % 36.0-66.0 Normal (applies to non-numeric re sults) [facility] ([facility]) Lymph % 39.7 % 24.0-44.0 Normal (applies to non-numeric resul ts) [facility] ([facility]) Eos % 1.5 % 0.0-3.0 Normal (applies to non-numeric resul ts) [facility] ([facility]) Carson % 11.3 % 2.0-8.0 Above high normal [facility] ([facility]) Baso % 1.1 % 0.0-1.0 Above high normal [facility] ([facility]) Nucleated Red Blood Cell % 0.0 % 0-0 Normal (applies to n on-numeric results) [facility] ([facility]) Immature Granulocyte % 0.2 % 0-3.0 Normal (applies to non-n umeric results) [facility] ([facility]) Lymph # 2.1 10 1.5-5.0 Normal (applies to non-numeric resul ts) [facility] ([facility]) Carson # 0.6 10 0.0-0.8 Normal (applies to non-numeric resul ts) [facility] ([facility]) Neutrophils # 2.4 10 1.5-8.5 Normal (applies to non-numeric re sults) [facility] ([facility]) Baso # 0.1 10 0.0-0.2 Normal (applies to non-numeric resul ts) [facility] ([facility]) Eos # 0.1 10 0.0-0.5 Normal (applies to non-numeric resul ts) [facility] ([facility]) ID Date Data Source [id number] 01/20/2021 08:24:00 AM EDT [facility] CT/NG IS A QUALITATIVE IN VITRO REAL-KASANDRA E PCR TEST FORDETECTION OF CHLAMYDIA TRACHOMATIS (CT) AND NEISSERIAGONORRHOEAE (NG)NORMAL VALUE FOR CT/NG IS " NO ORGANISMS DETECTED "0x95 False negative results may occur if the organism(s) ispresent at levels below the analytical limit of detection.0x95 Because the detection of CT and NG is dependent on the DNApresent in the sample, reliable results are dependent onproper sample collection, handling and storage.0x95 With endocervical specimens, assay interference may beobserved in the presence of: blood (>1% v/v) or mucin (>0.8%w/v).0x95 With urine specimens, assay interference may be observedin the presence of: blood (>0.3% v/v), mucin (>0.2% w/v),bilirubin (>0.2 mg/mL), or Vagisil feminine powder (>0.2%w/v).0x95 Collection and testing of urine specimens with the XpertCT/NG test is not intended to replace cervical exams andendocervical sampling for diagnosis of urogenital infection.Other genitourinary tract infections can be caused by otherinfectious agents.0x95 The effects of other potential variables such as vaginaldischarge, use of tampons, douching, and specimen collectionvariables have not been determined.0x95 A negative test result does not exclude the possibility ofinfection because test results may be affected by improperspecimen collection, technical error, specimen mix-up,concurrent antibiotic therapy, or the number of organisms inthe specimen which may be below the sensitivity of the test.0x[address]/NG test should not be used for the evaluationof suspected sexual abuse or for other medico-legalindications. Additional testing is recommended in anycircumstance when false positive or false negative resultscould lead to adverse medical, social, or psychologicalconsequences.0x[address]/NG test provides qualitative results. Nocorrelation can be drawn between the magnitude of the Ctvalue and the number of cells in an infected sample.0x95 Positive results may be observed after successfulantibiotic treatment due to target nucleic acids fromresidual non-viable chlamydia.0x[address]/NG performance has not been evaluated inpatients less than 14 years of age.0x[address]/NG performance has not been evaluated inpatients with a history of hysterectomy.0x[address]/NG test has not been evaluated with patientswho are currently being treated with antimicrobial agentsactive against CT or NG.0x95 As with many diagnostic tests, results from the XpertCT/NG test should be interpreted in conjunction with otherlaboratory and clinical data available to the clinician.0x95 Mutations or other changes within the regions of thebacterial genomes covered by the primers and/or probes inthe Xpert assay may result in failure to detect the targetorganisms.C trach DNA Vag Ql ELAN+probeN gonorrhoea rRNA Vag Ql ELAN+probe Name Value Range Interpretation Code Description Data Susan rce(s) Supporting Document(s) ID Date Data Source [id number] 01/19/2021 05:27:00 PM EDT [facility] Method of Collection:: Voided Name Value Range Interpretation Code Description Data Susan rce(s) Supporting Document(s) Color of Urine [facility] Appearance of Urine CLEAR [facility] pH of Urine by Test strip 5.5 5-8 [facility] Specific gravity of Urine by Refractometry 1.009 1.005-1.030 [facility] Leukocyte esterase [Presence] in Urine by Test strip NEGAT LISA [facility] Nitrite [Presence] in Urine by Test strip NEGATIVE [facility] Protein [Presence] in Urine by Test strip NEGATIVE [facility] Glucose [Mass/volume] in Urine by Automated test strip NEGATIVE NEG ATIVE [facility] Ketones [Presence] in Urine by Test strip NEGATIVE [facility] Urobilinogen [Presence] in Urine 0.2-1 EU/dl [facility] Bilirubin.total [Presence] in Urine by Automated test strip NEGATIVE [facility] Erythrocytes [#/volume] in Urine by Test strip NEGATIVE NEGATIVE [facility] URINE MICROSCOPIC? (CIF) NO [facility] ID Date Data Source [id number] 01/19/2021 04:10:00 PM EDT [facility] ([facility]) Name Value Range Interpretation Code Description Data Susan rce(s) Supporting Document(s) Color of Urine Laboratory test result [facility] ([facility]) Z11.3 Appearance of Urine Laboratory test result [facility] ([facility]) Z11.3 pH of Urine by Test strip 5.5 5-8 [facility] ([facility]) Z11.3 Specific gravity of Urine by Refractometry 1.009 1.005-1.030 [facility] ([facility]) Z11.3 Leukocyte esterase [Presence] in Urine by Test strip Laboratory francoise t result [facility] ([facility]) Z11.3 Nitrite [Presence] in Urine by Test strip Laboratory test result [facility] ([facility]) Z11.3 Protein [Presence] in Urine by Test strip Laboratory test result [facility] ([facility]) Z11.3 Glucose [Mass/volume] in Urine by Automated test strip Laborator y test result [facility] ([facility]) Z11.3 Ketones [Presence] in Urine by Test strip Laboratory test result [facility] ([facility]) Z11.3 Urobilinogen [Presence] in Urine Laboratory test result 0.2-1 [facility] Z11.3 Bilirubin.total [Presence] in Urine by Automated test strip Laboratory test result [facility] ([facility]) Z11.3 Erythrocytes [#/volume] in Urine by Test strip Laboratory test result [facility] ([facility]) Z11.3 Urine Microscopic? (Cif) Laboratory test result [facility] ([facility]) Z11.3 ID Date Data Source [id number] 01/19/2021 04:10:00 PM EDT [facility] Patient Name: LUIS MCCARTHY : 1995 Sex: F Pt Unit #: [id number] Location:[facility] Provider: Visit Date/Time: 01/19/21 Primary Insurance: MEDICAID [facility] Secondary Insurance: Self Pay Intake Vital Signs 01/19/21 16:10 Current Height 5 ft 7 in Current Weight 183 lb Weight Measurement Method Most recent on chart BMI 28.6 BP 122/76 Blood Pressure Location Lt radial Position Sitting Respiration 16 Pulse 80 Pulse Strength Normal Pulse Source Pulse Oximeter Temp 97.1 F L Temp Source Tympanic Pulse Oximetry (%) 95 Oxygen Delivery Method room air Intake Visit Reasons: [facility] STD Testing Nurse Note: PT HERE FOR NICKI ON + CHLAMYDIA SWAB DONE WITH DR LEMUS ON 10/16/20. SHE WAS TX W/ AZITHROMYCIN AND STATES THAT SHE TOOK MED ICATION DIRECTED. SHE DOES HAVE A KYLEENA IUD AND IS HAPPY WITH IT. LMP WAS IN SEPTEMBER 2020. SHE DID HAVE BV ON HER PAP 10/16/20. SHE WAS TX WITH MACROBID 12/27/20 FOR UTI SHE REPORTS HAVING THEM OFTEN. SHE DENIES ANY S/SX'S OF UTI TODAY. Type Copy Examiner Required: No Accompanied by: Self / Same as Patient Allergies No Known Drug Allergies [From No known Food or Drug Allergies] Allergy (Unverified 10/27/20 16:46) No Known Food Allergies [From No known Food or Drug Allergies] Allergy (Unverified 10/27/20 16:46) Is last menstrual period known: Yes Fall Risk Gait/Transferring:: Normal SBIRT Annual Questionnaire Are you currently in recovery for alcohol or substance use?: No Coronavirus Screening Screening Are you currently positive or on isolation for COVID ?: No Do you have any NEW signs of one or more of the following?: no symptoms Do you have NEW signs of at least two of the following?: no symptoms [facility] History Menstrual History Hx Age of Menarche: 16 Menstrual pattern Duration of menses: 3-5 days Contraception control method: progestin IUCD Cervical and Vaginal Cytology STD Screening: No Data to Display Hx Sexually Transmitted Disorders: No Sexual History Do you think of yourself as: straight/heterosexual Number of lifetime partners: 7 History History 0 Number of Living C hildren 0 Hx # Term Pregnancies 0 Hx # Pregnancies 0 Hx Total # of Abortions (Spontaneous Elective) 0 Ectopic pregnancies 0 PFSH Family History Grandmother Breast cancer Grandfather Leukemia Social History Does the Patient have a Healthcare Proxy: No Does Patient have a DNR?: No Does Patient have a Living Will?: No do you think of yourself as: straight/heterosexual Female Reproductive History Menstrual Age of Menarche: 16 Duration of menses: 3-5 days control method: progestin IUCD Total pregnancies: 0 Ectopics: 0 HPI Additional HPI HPI Details: 25-year-old treated for chlamydia back in October here for test of cure. Also complains of frequent UTIs. Last was E. coli responded to Macrobid. Review of Systems Const Reports system reviewed and no additional complaints, except as documented, Denies chills, Denies fever(s) and Denies headache(s) Eyes Denies blurry vision and Denies spots in vision ENT Denies dizziness and Denies headache(s) Card Denies chest pain and Denies palpitations Resp Denies cough and Denies wheezing GI Denies constipation, Denies diarrhea, Denies nausea and Denies vomiting Genitourinary: Reports as per HPI; Denies nipple discharge, vaginal discharge, vaginal odor or vaginal pruritus Musc Denies back pain and Denies arthralgias Skin/Breast Denies hirsutism, Denies alopecia, Denies nipple discharge and Denies rash Neuro Denies dizziness and Denies headache(s) Psych Denies anxiety and Denies depression Endo Denies cold intolerance, Denies heat intolerance and Denies palpitations Fam/Lymph Denies easy bleeding and Denies easy bruising Aller/Immun Denies wheezing Exam Const General: cooperative, healthy raul earing, comfortable, no acute distress and well groomed Orientation: alert and oriented x3 HENMT Head: normocephalic and atraumatic Eyes General: appearance normal, both eyes and all related structures Conjunctivae: conjunctivae normal Sclera: sclerae normal Neck Neck: full ROM and trachea midline Resp Effort Inspection: normal respiratory effort, able to speak in complete sentences, no audible wheezes and no cough Cardio Jugular venous pressure: no JVD Rate: regular rate Musc Cervical Spine: cervical ROM normal Thoracic/Lumbar Spine: thoraco-lumbar ROM normal Skin Lesions: no lesions Rashes: no rashes Hair: normal Neuro General: patient alert and patient oriented x3 Cognition: normal cognition Speech: speech normal Gait: normal gait Sensory Exam: no sensory deficits noted Extrem General: normal to inspection, full ROM, no clubbing, cyanosis or edema and normal gait Psych Mental Status: mental status grossly normal Speech and Movement: speech and movement normal Mood: congruent mood Affect: normal affect Attitude: cooperative Thought Process: normal Thought Content: normal Insight: insight good Judgment: judgment good Assessment Plan Assessment Plan (1) Encounter for sexually transmitted disease counseling: Code(s): Z70.8 - Other sex counseling Plan: Urine will be sent for test of cure for gonorrhea chlamydia as well as UA CLOTH WASHER given the history of frequent UTIs. Upon further questioning the patient does correlate her UTIs with intercourse and soshe will have a trial of Macrobid as a morning after as needed dosing pill to suppress UTIs. She should know within a few months if this is having any effect. Orders: Orders Cepheid CT/NG RT-PCR Today Z11.3 - Encounter for screening for infections with a predominantly sexual mode of transmission UA W/ CULTURE IF ABNORMAL Today N39.0 - Urinary tract infection, site not specified Medications: New nitrofurantoin monohyd/m-cryst 100 mg (Macrobid) must administer with a meal/food 100 mg PO DAILY PRN 30 caps 1RF suppressive dosing Coding Level of Care Code 90941 Est Pt Intermediate Comp Exam Expanded Problem Focused Diagnoses Encounter for sexually transmitted disease counseling Z70.8 <Electronically signed by Wei Salgado MD> 01/19/21 1624 Name Value Range Interpretation Code Description Data Susan rce(s) Supporting Document(s) ID Date Data Source [id number] 01/15/2021 12:50:[address] [facility] ([facility]) Name Value Range Interpretation Code Description Data Susan rce(s) Supporting Document(s) Troponin I.cardiac [Mass/volume] in Serum or Plasma Laboratory t est result Normal (applies to non-numeric results) [facility] ([facility]) <content>Troponin I Reference Interval f or Siemens [place] LOCI:</content>
<content></content>
<content>99th Percentile= 0.00-0.045 ng/ml</content>
<content></content>
<content>Risk Stratification:</content>
<content><= 0.10 ng/ml Decreased Risk for Adverse Clinical</content>
<content>Events.</content>
<content>0.10-1.50 ng/ml Increased Risk for Adverse Clinical</content>
<content>Events. Evaluation of additional</content>
<content>criterion and/or repeat testing in 2-6</content>
<content>hours is suggested to rule out myocardial</content>
<content>damage.</content>
<content>>= 1.50 ng/ml Indicative of Myocardial Injury.</content>
<content></content> ID Date Data Source [id number] 01/15/2021 12:50:00 PM EDT [facility] Name Value Range Interpretation Code Description Data Susan rce(s) Supporting Document(s) Prothrombin Time 13.2 s 12.7-14.5 Normal (applies to non-numeric results) [facility] ([facility]) Partial Thromboplastin Time 29.2 s 25.9-37.0 Norm al (applies to non-numeric results) [facility] ([facility]) Inr 0.96 Normal (applies to non-numeric resul ts) [facility] ([facility]) THERAPUTIC HUMAN INR VALUES INDICATIONS NORMAL RANGES PROPHYLAXIS/TREATMENT OF: VENOUS THROMBOSIS 2.0-3.0 PULMONARY EMBOLISM 2.0-3.0 PREVENTION OF SYSTEMIC EMBOLISM FROM: TISSUE HEART VALVES 2.0-3.0 ACUTE MYOCARDIAL INFARCTION 2.0-3.0 VALVULAR HEART DISEASE 2.0-3.0 ATRIAL FIBRILLATION 2.0-3.0 MECHANICAL VALVES(HIGH RISK) 2.5-3.5 RECURRENT MYOCARDIAL INFARCTION 2.5-3.5 ID Date Data Source [id number] 01/15/2021 12:50:00 PM EDT [facility] Name Value Range Interpretation Code Description Data Susan rce(s) Supporting Document(s) Fibrin D-dimer FEU [Mass/volume] in Platelet poor plasma 361.67 ng/mL Normal (applies to non-numeric results) [facility]) ID Date Data Source [id number] 01/15/2021 12:50:00 PM EDT [facility] Name Value Range Interpretation Code Description Data Susan rce(s) Supporting Document(s) Glucose, Fasting 95 mg/dL 70-100 Normal (applies to non-numeric results) [facility] ([facility]) Blood Urea Nitrogen 12 mg/dL 7-18 Normal (applies to non-nume dee results) [facility]) Creatinine For GFR 0.88 mg/dL 0.55-1.30 Normal (applies to non -numeric results) [facility]) Glomerular Filtration Rate Laboratory test result Normal (applies to non- numeric results) [facility] ([facility]) <content>Units are mL/min/1.73 m2</content>
<content></content>
<content>Chronic Kidney Disease Staging per NKF:</content>
<content></content>
<content>Stage I & II GFR >=60 Normal to Mildly Decreased</content>
<content>Stage III GFR 30- 59 Moderately Decreased</content>
<content>Stage IV GFR 15-29 Severely Decreased</content>
<content>Stage V GFR <15 Very Little GFR Left</content>
<content>ESRD GFR <15 on CONTINUITY DIRECTOR</content>
<content></content> Sodium Level 139 meq/L 136-145 Normal (applies to non-numeric res ults) [facility] ([facility]) Potassium Serum 4.6 meq/L 3.5-5.1 Normal (applies to non-numeric results) [facility] ([facility]) Chloride Level 109 meq/L 98-107 Above high normal [facility] ([facility]) Carbon Dioxide Level 27 meq/L 21-32 Normal (applies to non-num cindy results) [facility] ([facility]) Calcium Level 9.3 mg/dL 8.5-10.1 Normal (applies to non-numeric re sults) [facility] ([facility]) Anion Gap 3 meq/L 8-[address] [facility] ( [facility]) Ast/Sgot 13 U/L 7-37 Normal (applies to non-numeric resul ts) [facility] ([facility]) Alt/SGPT 25 U/L 12-78 Normal (applies to non-numeric resul ts) [facility] ([facility]) Total Protein 7.5 GM/DL 6.4-8.2 Normal (applies to non-numeric re sults) [facility] ([facility]) Bilirubin,Total 0.4 mg/dL 0.2-1.0 Normal (applies to non-numeric results) [facility] ([facility]) Alkaline Phosphatase 99 U/L 45-117 Normal (applies to non-num cindy results) [facility] ([facility]) Albumin 4.0 GM/DL 3.2-5.2 Normal (applies to non-numeric resul ts) [facility] Albumin/Globulin Ratio 1.1 1.2-2.[address] [facility] ([facility]) ID Date Data Source [id number] 01/15/2021 12:50:00 PM EDT [facility] ([facility]) Name Value Range Interpretation Code Description Data Susan rce(s) Supporting Document(s) White Blood Count 7.9 10 4.0-10.0 Normal (applies to non-numeri c results) [facility] Red Blood Count 4.38 10 4.00-5.40 Normal (applies to non-numeric results) [facility]) Hemoglobin 12.4 g/dL 12.0-15.5 Normal (applies to non-numeric resul ts) [facility]) Mean Corpuscular Volume 91.6 fl 80.0-96.0 Normal ( applies to non-numeric results) [facility]) Hematocrit 40.1 % 36.0-47.0 Normal (applies to non-numeric resul ts) [facility]) Mean Corpuscular Hemoglobin 28.3 pg 27.0-33.0 Norm al (applies to non-numeric results) [facility] ([facility]) Red Cell Distribution Width 13.9 % 11.5-14.5 Norm al (applies to non-numeric results) [facility] Mean Corpuscular HGB Conc 30.9 g/dL 32.0-36.5 Below low normal [facility]) Neutrophils % 59.3 % 36.0-66.0 Normal (applies to non-numeric re sults) [facility]) Platelet Count, Automated 329 10 150-450 Normal (applies to non-numeric results) [facility] Lymph % 27.6 % 24.0-44.0 Normal (applies to non-numeric resul ts) [facility] ([facility]) Carson % 9.6 % 2.0-8.0 Above high normal [facility] ([facility]) Baso % 1.3 % 0.0-1.0 Above high normal [facility] ([facility]) Eos % 1.8 % 0.0-3.0 Normal (applies to non-numeric resul ts) [facility] ([facility]) Immature Granulocyte % 0.4 % 0-3.0 Normal (applies to non-n umeric results) [facility] ([facility]) Nucleated Red Blood Cell % 0.0 % 0-0 Normal (applies to n on-numeric results) [facility] ([facility]) Neutrophils # 4.7 10 1.5-8.5 Normal (applies to non-numeric re sults) [facility] ([facility]) Carson # 0.8 10 0.0-0.8 Normal (applies to non-numeric resul ts) [facility] ([facility]) Lymph # 2.2 10 1.5-5.0 Normal (applies to non-numeric resul ts) [facility] ([facility]) Baso # 0.1 10 0.0-0.2 Normal (applies to non-numeric resul ts) [facility] ([facility]) Eos # 0.1 10 0.0-0.5 Normal (applies to non-numeric resul ts) [facility] ([facility]) ID Date Data Source [id number] 01/15/2021 11:50:00 AM EDT [facility] ([facility]) Name Value Range Interpretation Code Description Data Susan rce(s) Supporting Document(s) EKG Laboratory test result [facility] ([facility]) ID Date Data Source [id number] 12/24/2020 10:33:00 AM EDT [facility] @12/24/20 1004: UA W/ MICRO added. RFLXG = UMIC CIF.Method of Collection:: Clean Catch @12/24/20 1034: Urine culture added. RFL XG = CULT.ADD.@12/26/20 0700: Urine ID Charge added. RFLXG = CHGURID. @12/24/20 1004: UA W/ MICRO added. RFLXG = UMIC CIF.Method of Collection:: Clean Catch Name Value Range Interpretation Code Description Data Susan rce(s) Supporting Document(s) Color of Urine [facility] Appearance of Urine CLEAR [facility] pH of Urine by Test strip 6.5 5-8 [facility] Specific gravity of Urine by Refractometry 1.005 1.005-1.030 [facility] Leukocyte esterase [Presence] in Urine by Test strip NEGATIVE Abnormal (applies to non-numeric results) [facility]A Culture has been added to this specimen per established criteria Nitrite [Presence] in Urine by Test strip NEGATIVE Above high normal [facility] @DO MICRO!!!!A Culture has been added to this specimen per established criteria Protein [Presence] in Urine by Test strip NEGATIVE [facility] Glucose [Mass/volume] in Urine by Automated test strip NEGATIVE NEG ATIVE [facility] Ketones [Presence] in Urine by Test strip NEGATIVE [facility] Urobilinogen [Presence] in Urine 0.2-1 EU/dl [facility] Bilirubin.total [Presence] in Urine by Automated test strip NEGATIVE [facility] Erythrocytes [#/volume] in Urine by Test strip NEGATIVE NEGATIVE [facility] URINE MICROSCOPIC? (CIF) Microscopic Added [facility] ID Date Data Source [id number] 12/24/2020 09:56:[address] [facility] ([facility]) Name Value Range Interpretation Code Description Data Susan rce(s) Supporting Document(s) Trimethoprim/Sulfamethoxazole Laboratory test result Susceptible. Indicates for microbiology susceptibilities only. [facility] N39.0,R30.0 Amoxicillin+Clavulanate [Susceptibility] by Minimum inhibitory concentration (VINCENT) Laboratory test result Susceptible. Radha cates for microbiology susceptibilities only. [facility] ([facility]) N39.0,R30.0 Ampicillin [Susceptibility] by Minimum inhibitory conc entration (VINCENT) Laboratory test result Susceptible. Indicates for microbiology suscepti bilities only. [facility] ([facility]) N39.0,R30.0 Ampicillin+Sulbactam [Susceptibility] by Minimum inhib itory concentration (VINCENT) Laboratory test result Susceptible. Indicates for m icrobiology susceptibilities only. [facility] ([facility]) N39.0,R30.0 Cefotaxime [Susceptibility] by Minimum inhibitory conc entration (VINCENT) Laboratory test result Susceptible. Indicates for microbiology suscepti bilities only. [facility] ([facility]) N39.0,R30.0 Ceftriaxone [Susceptibility] by Minimum inhibitory con centration (VINCENT) Laboratory test result Susceptible. Indicates for m icrobiology susceptibilities only. [facility] ([facility]) N39.0,R30.0 Ciprofloxacin [Susceptibility] by Minimum inhibitory c oncentration (VINCENT) Laboratory test result Susceptible. Indicates for m icrobiology susceptibilities only. [facility] ([facility]) N39.0,R30.0 Ertapenem [Susceptibility] by Minimum inhibitory tawanda ntration (VINCENT) Laboratory test result Susceptible. Indicates for microbiology suscepti bilities only. [facility] ([facility]) N39.0,R30.0 Nitrofurantoin [Susceptibility] by Minimum inhibitory concentration (VINCENT) Laboratory test result Susceptible. Indicates for m icrobiology susceptibilities only. [facility] ([facility]) N39.0,R30.0 Gentamicin [Susceptibility] by Minimum inhibitory conc entration (VINCENT) Laboratory test result Susceptible. Indicates for microbiology suscepti bilities only. [facility] ([facility]) N39.0,R30.0 Imipenem [Susceptibility] by Minimum inhibitory concen tration (VINCENT) Laboratory test result Susceptible. Indicates for microbiology suscepti bilities only. [facility] ([facility]) N39.0,R30.0 Tobramycin [Susceptibility] by Minimum inhibitory conc entration (VINCENT) Laboratory test result Susceptible. Indicates for microbiology suscepti bilities only. [facility] ([facility]) N39.0,R30.0 Tetracycline [Susceptibility] by Minimum inhibitory co ncentration (VINCENT) Laboratory test result Susceptible. Indicates for m icrobiology susceptibilities only. [facility] ([facility]) N39.0,R30.0 Levofloxacin [Susceptibility] by Minimum inhibitory co ncentration (VINCENT) Laboratory test result Susceptible. Indicates for m icrobiology susceptibilities only. [facility] ([facility]) N39.0,R30.0 Cefepime [Susceptibility] by Minimum inhibitory concen tration (VINCENT) Laboratory test result Susceptible. Indicates for microbiology suscepti bilities only. [facility] ([facility]) N39.0,R30.0 Piperacillin+Tazobactam [Susceptibility] by Minimum inhibitory concentration (VINCENT) Laboratory test result Susceptible. Radha cates for microbiology susceptibilities only. [facility] ([facility]) N39.0,R30.0 ID Date Data Source [id number] 12/24/2020 09:56:00 AM EDT [facility] ([facility]) Name Value Range Interpretation Code Description Data Susan rce(s) Supporting Document(s) Bacteria identified in Urine by Culture Laboratory test result [facility] ([facility]) N39.0,R30.0 Bacteria identified in Urine by Culture Laboratory test result [facility] ([facility]) N39.0,R30.0 [place] count Laboratory test result [facility] ([facility]) N39.0,R30.0 ID Date Data Source [id number] 12/24/2020 09:56:00 AM EDT [facility] ([facility]) Name Value Range Interpretation Code Description Data Susan rce(s) Supporting Document(s) Leukocytes [#/volume] in Urine by Manual count Laboratory test r esult 0-5 Above high normal [facility] ([facility]) N39.0,R30.0 Cells [Type] in Urine sediment by Light microscopy Laboratory test re sult [facility] ([facility]) N39.0,R30.0 Bacteria [Presence] in Urine sediment by Light microsc opy Laboratory test result Above high normal [facility] ([facility]) N39.0,R30.0 ID Date Data Source [id number] 12/24/2020 09:56:00 AM EDT [facility] ([facility]) Name Value Range Interpretation Code Description Data Susan rce(s) Supporting Document(s) Color of Urine Laboratory test result [facility] ([facility]) N39.0,R30.0 Appearance of Urine Laboratory test result [facility] ([facility]) N39.0,R30.0 pH of Urine by Test strip 6.5 5-8 [facility] ([facility]) N39.0,R30.0 Specific gravity of Urine by Refractometry 1.005 1.005-1.030 [facility] N39.0,R30.0 Leukocyte esterase [Presence] in Urine by Test strip Laboratory test result Abnormal (applies to non-numeric results) [facility] ([facility]) N39.0,R30.0 Protein [Presence] in Urine by Test strip Laboratory test result [facility] ([facility]) N39.0,R30.0 Nitrite [Presence] in Urine by Test strip Laboratory test result Above high normal [facility] N39.0,R30.0 Glucose [Mass/volume] in Urine by Automated test strip Laborator y test result [facility] ([facility]) N39.0,R30.0 Ketones [Presence] in Urine by Test strip Laboratory test result [facility] ([facility]) N39.0,R30.0 Bilirubin.total [Presence] in Urine by Automated test strip Laboratory test result [facility] ([facility]) N39.0,R30.0 Urobilinogen [Presence] in Urine Laboratory test result 0.2-1 [facility] ([facility]) N39.0,R30.0 Erythrocytes [#/volume] in Urine by Test strip Laboratory test result [facility] ([facility]) N39.0,R30.0 Urine Microscopic? (Cif) Laboratory test result [facility] ([facility]) N39.0,R30.0 ID Date Data Source [id number] 12/16/2020 10:34:00 AM EDT [facility] Patient Name: LUIS MCCARTHY : 1995 Sex: F Pt Unit #: [id number] Location:[facility] Provider: Visit Date/Time: 12/16/20 Primary Insurance: MEDICAID [facility] Secondary Insurance: Self Pay Intake Vital Signs 12/16/20 10:34 Current Height 5 ft 7 in Current Weight 183 lb Weight Measurement Method Standing Scale BMI 28.6 BP 118/70 Blood Pressure Location Lt brachial Position Sitting Respiration 18 Pulse 92 Pulse Strength Normal Pulse Source Pulse Oximeter Temp 97.7 F Temp Source Tympanic Pulse Oximetry (%) 99 Oxygen Delivery Method room air Intake Visit Reasons: [facility] IUD Check Nurse Note: Patient is here for and IUD check. Her IUd was placed on 10/27/20. She is having some spotting after intercourse. No other questions or concerns. Type Copy Examiner Required: No Accompanied by: Self / Same as Patient Is patient in pain?: No Allergies No Known Drug Allergies [From No known Food or Drug Allergies] Allergy (Unverified 10/27/20 16:46) No Known Food Allergies [From No known Food or Drug Allergies] Allergy (Unverified 10/27/20 16:46) Is last menstrual period known: No Post menopausal: No Patient : No Fall Risk History of falls: No Ambulatory Aid:: None Gait/Transferring:: Normal Medications:: Antihypertensives PHQ-2/9 Over the last 2 weeks, how often have you been bothered by any of the following problems? 1. Little interest or pleasure in doing things: not at all 2. Feeling down, depressed, or hopeless: not at all Total score: 0 HIV Testing Offer - ages 13- 64 HIV testing Offer: No SBIRT Annual Questionnaire Are you currently in recovery for alcohol or substance use?: No How many times in the past year have you had 4 or more drinks in a day?: None How many times in the past year have you used a recreational drug or used a prescription medication for nonmedical reasons?: None Do you need a note to return Do you need a note to return to daycare/school/sports/work: No Coronavirus Screening Screening Are you currently positive or on isolation for COVID ?: No Do you have any NEW signs of one or more of the following?: no symptoms Do you have NEW signs of at least two of the following?: no symptoms [facility] History Menstrual History Hx Age of Menarche: 16 Menstrual pattern Duration of menses: 3-5 days Contraception control method: progestin IUCD Previous methods tried?: none Cervical and Vaginal Cytology Ever treated for STI: Yes (Chylamidia) STD Screening: No Data to Display Hx Sexually Transmitted Disorders: No HIV risk evaluation: low risk Hepatitis B risk evaluation: low risk Sexual History Sexually active: Yes Age at first sexual contact: 17 Do you think of yourself as: straight/heterosexual Number of lifetime partners: 7 Number of partners in last 3 months [.AM.PEOMP]: 1 Condom use: never Sexual concerns: None Sexual abuse: No Ever a victim of rape/sexual assault: no History History 0 Number of Living Children 0 Hx # Term Pregnancies 0 Hx # Pregnancies 0 Hx Total # of Abortions (Spontaneous Elective) 0 Ectopic pregnancies 0 PFSH Family History Grandmother Breast cancer Grandfather Leukemia Social History Does the Patient have a Healthcare Proxy: No Does Patient have a DNR?: No Does Patient have a Living Will?: No do you think of yourself as: straight/heterosexual Female Reproductive History Menstrual Age of Menarche: 16 Duration of menses: 3-5 days control method: progestin IUCD Total pregnancies: 0 Ectopics: 0 HPI Additional HPI HPI Details: Patient is here for routine follow-up after successful placement of a Kyleena IUD 1 month ago. Review of Systems Const Reports system reviewed and no additional complaints, except as documented, Denies chills, Denies fever(s) and Denies headache(s) Eyes Denies blurry vision and Denies spots in vision ENT Denies dizziness and Denies headache(s) Card Denies chest pain and Denies palpitations Resp Denies cough and Denies wheezing GI Denies constipation, Denies diarrhea, Denies nausea and Denies vomiting Genitourinary: Reports as per HPI; Denies nipple discharge, vaginal discharge, vaginal odor or vaginal pruritus Musc Denies back pain and Denies arthralgias Skin/Breast Denies hirsutism, Denies alopecia, Denies nipple discharge and Denies rash Neuro Denies dizziness and Denies headache(s) Psych Denies anxiety and Denies depression Endo Denies cold intolerance, Denies heat intolerance and Denies palpitations Fam/Lymph Denies easy bleeding and Denies easy bruising Aller/Immun Denies wheezing Exam Const General: cooperative, healthy appearing, comfortable, no acute distress and well groomed Orientation: alert and oriented x3 HENMT Head: normocephalic and atraumatic Eyes General: appearance normal, both eyes and all related stru ctures Conjunctivae: conjunctivae normal Sclera: sclerae normal Neck Neck: full ROM and trachea midline Resp Effort Inspection: normal respiratory effort, able to speak in complete sentences, no audible wheezes and no cough Cardio Jugular venous pressure: no JVD Rate: regular rate Musc Cervical Spine: cervical ROM normal Thoracic/Lumbar Spine: thoraco-lumbar ROM normal Skin Lesions: no lesions Rashes: no rashes Hair: normal Neuro General: patient alert and patient oriented x3 Cognition: normal cognition Speech: speech normal Gait: normal gait Sensory Exam: no sensory deficits noted Extrem General: normal to inspection, full ROM, no clubbing, cyanosis or edema and normal gait Psych Mental Status: mental status grossly normal Speech and Movement: speech and movement normal Mood: congruent mood Affect: normal affect Attitude: cooperative Thought Process: normal Thought Content: normal Insight: insight good Judgment: judgment good Assessment Plan Asses sment Plan (1) Encounter for management of intrauterine contraceptive device (IUD): Code(s): Z30.431 - Encounter for routine checking of intrauterine contraceptive device Plan: Patient presented for follow-up as directed. She has no complaints and is happy with the IUD. She declined visual inspection of the strings. She notes that she can feel them they are not uncomfortable or problems for her partner. She can follow-up for annual exams or as needed. Medications: Discontinued doxycycline hyclate 1 cap by mouth twice a day for 14 days Discontinued Reason: MD Order 100 mg PO BID 14 days 28 caps 0RF N73.0 - Acute parametritis and pelvic cellulitis Coding Level of Care Code Estab Pt Lvl 1 (1-9 min) Exam Expanded Problem Focused Diagnoses Encounter for management of intrauterine contraceptive device (IUD) Z30.431 <Electronically signed by Wei Salgado MD> 12/16/20 1057 Name Value Range Interpretation Code Description Data Susan rce(s) Supporting Document(s) ID Date Data Source [id number] 10/27/2020 02:54:00 PM EDT [facility] Patient Name: LUIS MCCARTHY : 1995 Sex: F Pt Unit #: [id number] Location:[facility] Provider: Visit Date/Time: 10/27/20 Primary Insurance: MEDICAID [facility] Secondary Insurance: Self Pay Intake Vital Signs 10/27/20 14:58 Current Height 5 ft 7 in Current Weight 186 lb 4 oz Weight Measurement Method Standing Scale BMI 29.1 BP 140/92 Blood Pressure Location Lt brachial Position Sitting Respiration 18 Pulse 90 Pulse Strength Normal Pulse Source Pulse Oximeter Temp 98.1 F Temp Source Tympanic Pulse Oximetry (%) 98 Oxygen Delivery Method room air Intake Visit Reasons: [facility] IUD Placement Nurse Note: Pt is here today to have Kyleena IUD placed. Urine HCG done in office and negative. Pt signed consent for procedure. Pt's BP is elevated today, states she has HTN and is also nervous. Denies any other concerns today. Kyleena IUD placed; [facility]: [id number], lot: [id number]; exp: 10/01. Pt tolerated well. Type Copy Examiner Required: No Accompanied by: Self / Same as Patient Is patient in pain?: No Allergies No Known Drug Allergies [From No known Food or Drug Allergies] Allergy (Unverified 10/27/20 16:46) No Known Food Allergies [From No known Food or Drug Allergies] Allergy (Unverified 10/27/20 16:46) Is last menstrual period known: Yes Last menstrual period: 10/22/20 Post menopausal: No Patient : No Vision Wearing glasses?: Yes Fall Risk History of falls: No HIV Testing Offer - ages 13-64 HIV testing Offer: No SBIRT Annual Questionnaire Are you currently in recovery for alcohol or substance use?: No Coronavirus Screening Screening Are you currently positive or on isolation for COVID ?: No Do you have any NEW signs of one or more of the following?: no symptoms Do you have NEW signs of at least two of the following?: no symptoms Office Procedures IUD Insertion Diagnosis: Contraception: IUD insertion. Informed consent given: Yes Consent signed: Yes Time out performed: Yes Patient tolerated procedure: well Procedure note: After consent done and time out done the patient was placed in stirrups, draped and prepped with a 50/50 solution of Povidine and 2% viscous Lidocaine. Pelvic exam--> uterus midplane7 week size and mobile. The cervix was cleaned with same Povidine solution. A single tooth tenaculum was placed on the anterior lip of the cervix and traction applied. The uterine cavity sounded to 7 cm and Kyleena introducer set to depth of 7 cm. Once the fundus was reached the introducer was withdrawn 0.5 cm , the Kyleena deployed and after 1 minute the introducer moved to the 7 cm position and Kyleena deployed and introducer removed. The strings were trimmed at 4 cm length and tenaculum removed. Minimal bleeding was noted. Post insertion instructions were reviewed and patient left office with no problems. Followup scheduled for 4 weeks. Letha Allan LPN Total procedure time 20 minutes Exam Const General: cooperative, healthy appearing, no acute distress, well developed and well groomed Nutritional Appearance: well nourished Orientation: alert, awake and oriented x3 HENMT Head: normal to inspection, normocephalic, atraumatic and no scalp tenderness Ears: hearing grossly normal bilaterally, external ears normal, TM's normal bilaterally, EAC's normal and no periauricular adenopathy General nose exam: external nose normal, nares normal, no nasal polyps, septum normal and no nasal discharge Face and sinus: normal facial exam and sinuses nontender Mouth: oral mucosae normal, lip normal, tongue normal, oropharynx normal and moist mucous membranes Throat: posterior oropharynx normal Eyes General: appearance normal, both eyes and all related structures Periorbital: periorbital findings normal Eyelids: eyelids normal Conjunctivae: conjunctivae normal Sclera: sclerae normal Pupils: PERRL EOM: EOM intact bilaterally Direct ophthalmoscopy: normal light reflex Neck Neck: normal visual inspection, full ROM, no lymphadenopathy, supple and no JVD present Neck mass: No Thyroid: thyroid normal Carotids: normal carotid upstroke Chest Chest: normal inspection of the chest Breast/Axilla Inspection: normal inspection of the breasts and normal inspection of the axillae Breast/Axilla Palpation: normal palpation of the breasts and no axillary lymphadenopathy Resp Effort Inspection: normal respiratory effort Auscultation: clear to auscultation bilaterally Percussion: percussion normal Cardio Jugular venous pressure: no JVD Palpation: normal PMI Rate: regular rate Rhythm: regular rhythm Heart Sounds: S1 normal and S2 normal Pulses: normal peripheral pulses GI Inspection: Yes normal to inspection Palpation: soft, no hepatosplenomegaly, no aortic enlargement and nontender Percussion: normal to percussion Auscultation: normal bowel sounds General: bimanual renal exam normal bilaterally and bladder normal to palpation External Female Exam: normal external appearance and normal appearance of the urethra Urethra: normal appearance of the urethra Speculum Exam - Vagina: normal appearance of the vagina Speculum Exam - Cervix: normal appearance of the cervix Bimanual Exam- Vagina Uterus: normal bimanual exam, normal palpation, uterine size normal, bladdernormal to palpation, consistency normal, normal palpation, uterine mobility normal and uterine shapenormal Bimanual Exam- Adnexa, other: normal adnexae, normal rectovaginal exam, normal, No cul-de-sac fullness, No cul-de-sac tenderness and No cul-de-sac nodularity Recto-Vaginal: normal rectovaginal exam, no cul-de-sac fullness, no cul-de-sac tenderness and no cul-de-sac nodularlity Pelvic Support: normal, no cystocele, no rectocele and no enterocele Musc Cervical Spine: normal cervical lordosis and cervical ROM normal Thoracic/Lumbar Spine: thoracic and lumbar spine normal to inspection, thoraco-lumbar ROM normal andstraight leg raise negative bilaterally Pelvis: no pain with anterior-posterior compression and no pain with lateral compression Skin Lesions: no lesions Rashes: no rashes Hair: normal Nails: normal Neuro General: patient alert, patient awake, patient oriented x3, gait normal, moves all extremities and normal light touch, pain and propioception Cranial Nerves: CN's II-XII intact bilaterally Cognition: normal cognition Speech: speech normal Gait: normal gait Motor: muscle tone normal throughout and strength 5/5 throughout Sensory Exam: no sensory deficits noted Extrem General: normal to inspection, full ROM, capillary refill normal, no clubbing, cyanosis or edema andno muscle atrophy Psych Appearance: grossly normal and well kempt Mental Status: mental status grossly normal Speech and Movement: speech and movement normal Affect: normal affect Attitude: cooperative Thought Process: normal Thought Content: normal Insight: insight good Judgment: judgment good Assessment Plan Assessment Plan (1) Encounter for insertion of intrauterine contraceptive device (IUD): Code(s): Z30.430 - Encounter for insertion of intrauterine contraceptive device Plan: 1. Kyleena IUD placed in uterus without complication. Patient tolerated procedure well. Discharged home in satisfactory condition. 2. To return to office in 4 weeks for IUD check. Medications: Discontinued azithromycin Patient take 2 tabs immediately. EPT Take 2 tabs immediately. Discontinued Reason: Reported during MED REC - Medication is D/C 1,000 mg (2 x 500 mg) PO .STAT 1 day 4 tabs 0RF Chlamydia infection A74.9 - Chlamydial infection, unspecified Orders Follow Up: 4 Weeks <Electronically signed by Letha Lemus MD> 10/27/20 1657 Name Value Range Interpretation Code Description Data Susan rce(s) Supporting Document(s) ID Date Data Source [id number] 10/19/2020 07:10:00 PM EDT [facility] [address] [place] [id number] [phone] NAME SEX PT STATUS ACCOUNT NUMBER LUIS MCCARTHY REG REF [id number] ORDERING PHYSICIAN LOCATION MEDICAL RECORD NO. Letha Lemus MD [id number] ATTENDING PHYSICIAN DATE OF DATE OF EXAM/TIME Liat Schneider DO 1995 10/19/20 / 1311 TYPE / EXAM US Breast - Limited Unilat REASON FOR EXAM left breast axillary mass COMPARISON: None Multiple images of the left axilla were obtained, encompassing the area of clinical concern. FINDINGS: No cystic or solid mass identified. A small lymph node incidentally identified is most likely not related to the palpable region measuring approximately 9.7 mm in greatest diameter. IMPRESSION: No sonographic evidence of a mass. Further follow-up is to be based on the clinical exam. If clinical concern for a mass is present additional imaging may be indicated. OVERALL FINAL ASSESSMENT OF FINDINGS BI-RADS 2 - Benign findings Reported By Columba Mota MD on 10/19/201909 S igned By Columba Mota MD on 10/19/201911 Date Time CC: Liat Schneider DO; Columba Mota MD Techn: NOREM Trans Dt/Tm: Trans by: DT Prt Dt/Tm: : Total DLP = 0.00 mGy-cm : Total Radiation Dose = 0.0000 mSv Lifetime Dose: 0 mSv Name Value Range Interpretation Code Description Data Susan rce(s) Supporting Document(s) ID Date Data Source [id number] 10/16/2020 01:52:00 PM EDT [facility] Patient Name: LUIS MCCARTHY OB: 1995 Sex: F Pt Unit #: [id number] Location:[facility] Provider: Visit Date/Time: 10/16/20 Primary Insurance: MEDICAID [facility] Secondary Insurance: Self Pay Intake Vital Signs 10/16/20 14:01 Current Height 5 ft 7 in Current Weight 191 lb 6 oz Weight Measurement Method Standing Scale BMI 29.9 BP 138/88 Blood Pressure Location Rt brachial Position Sitting Respiration 20 Pulse 82 Pulse Strength Normal Pulse Source Pulse Oximeter Temp 98.0 F Temp Source Tympanic Pulse Oximetry (%) 98 Oxygen Delivery Method room air Intake Visit Reasons: [facility] Encounter to Establish Care Nurse Note: patient is here for her [facility] annual. patient is doing a PAP, UA, GC, Affirm. patient does self breast exam. she is concerned with lump in left arm pit. patient has plans for breast reduction in 6 months. Type Copy Examiner Required: No Accompanied by: Self / Same as Patient Is patient in pain?: No Allergies No Known Drug Allergies [From No known Food or Drug Allergies] Allergy (Unverified 10/16/20 14:38) No Known Food Allergies [From No known Food or Drug Allergies] Allergy (Unverified 10/16/20 14:38) Medications - Last Reconciled 10/16/20 by Letha Lemus MD amitriptyline 12.5 mg PO QDAY desogestrel-ethinyl estradiol 0.15-0.03 mg (Enskyce) 1 tab PO QDAY dicyclomine 10 mg PO .q week esomeprazole magnesium (Nexium) 20 mg PO QDAY Is last menstrual period known: Yes Last menstrual period: 09/30/20 Post menopausal: No Patient : No PHQ-2/9 Over the last 2 weeks, how often have you been bothered by any of the following problems? 1. Little interest or pleasure in doing things: not at all 2. Feeling down, depressed, or hopeless: not at all Total score: 0 SBIRT Annual Questionnaire Are you currently in recovery for alcohol or substance use?: No How many times in the past year have you had 4 or more drinks in a day?: None How many times in the past year have you used a recreational drug or used a prescription medication for nonmedical reasons?: None Do you need a note to return Do you need a note to return to daycare/school/sports/work: No Coronavirus Screening Screening Are you currently positive or on isolation for COVID ?: No Do you have any NEW signs of one or more of the following?: no symptoms Do you have NEW signs of at least two of the following?: no symptoms [facility] History Menstrual History Hx Age of Menarche: 16 Date of Last Menstrual Period: 09/30/20 Menstrual pattern Duration of menses: 3-5 days Menstrual flow: Normal Sanitary products used: tampons Per hour, how often product changed during heaviest flow?: >4 Intermenstrual bleeding?: No Menstrual pain: mild Menstrual regularity: regular Gynecologic pain symptoms: Denies dysmenorrhea Perimenopause/Menopause Menopause concerns/symptoms: Denies hot flashes Urogynecologic symptoms: Denies urinary urgency Contraception control method: pills Cervical and Vaginal Cytology STD Screening: No Data to Display Hx Sexually Transmitted Disorders: No Sexual History Sexually active: Yes Age at first sexual contact: 17 Do you think of yourself as: straight/heterosexual Condom use: never Sexual concerns: None History History 0 Number of Living Children 0 Hx # Term Pregnancies 0 Hx # Pregnancies 0 Hx Total # of Abortions (Spontaneous Elective) 0 Ectopic pregnancies 0 PFSH Family History Grandmother Breast cancer Grandfather Leukemia Social History do you think of yourself as: straight/heter osexual Female Reproductive History Menstrual Age of Menarche: 16 Duration of menses: 3-5 days Date of last menstrual period: 09/30/20 control method: pills HPI Additional HPI HPI Details: 24-year-old CF LMP: 09/30/2020 x4-5 days, WNL. For [facility] evaluation. Complaints of left axilla mass, not painful. On control pills as contraception. Will like to try an IUD. No significant medical history. Drinks a lot of water daily, about 1-1/2 gallons of water a day. As a result urinates a lot. No dysuria/hematuria. Paternal grandmother with breast cancer, diagnosed age 40's, alive. Menarcheage 16. Menses regular, 28-day, x5 days, normal flow, 12 tampons/day (drinks a lot of water, changes tampon with each bathroom use). Minimal cramps with menses, Rx0. Sexually active, partner x1-1/2 years, no STD history. No other complaints. Review of Systems Const Denies anorexia, Denies fatigue, Denies fever(s), Denies weight gain and Denies weight loss ENT Denies dysphagia Card Denies chest pain, Denies pedal edema, Denies lightheadedness, Denies palpitations and Denies dyspnea Resp Denies dyspnea GI Denies abdominal pain, Denies change in bowel habits, Denies dysphagia, Denies early satiety, Deniesheartburn, Denies diarrhea, Denies nausea and Denies vomiting Genitourinary: Reports urinary frequency; Denies abnormal menses, abnormal vaginal bleeding, metrorrhagia, hot flashes, dysmenorrhea, dysuria, pelvic pain, urinary hesitancy, urinary urgency orvaginal discharge Skin/Breast Denies breast pain, Reports breast mass (Left axilla), Denies change in breast shape, Denies change in pigmentation, Denies lesions, Denies nail changes, Denies rash, Denies skin pain and Denies unusual bruising Endo Denies fatigue and Denies palpitations Exam Const General: cooperative, healthy appearing, no acute distress, well developed and well groomed Nutritional Appearance: well nourished Orientation: alert, awake and oriented x3 HENMT Head: normal to inspection, normocephalic and atraumatic Ears: hearing grossly normal bilaterally and external ears normal General nose exam: external nose normal, nares normal, septum normal and no nasal discharge Face and sinus: normal facial exam Mouth: oral mucosae normal, lip normal, tongue normal and moist mucous membranes Chest Chest: normal inspection of the chest Breast/Axilla Inspection: normal inspection of the breasts (Symmetrical, large size, no skin changes.) and normal inspection of the axillae Breast/Axilla Palpation: normal palpation of the breasts (Soft-nodular, no masses, nipple discharge or tenderness.), no axillary lymphadenopathy and abnormal palpation of the axilla (2 x 2 cm left axillary mass, mobile, rubbery, nontender.) GI Inspection: Yes normal to inspection Palpation: soft (Flat, no masses. Supraumbilical pin.), no hepatosplenomegaly and nontender Percussion: normal to percussion Auscultation: normal bowel sounds General: bimanual renal exam normal bilaterally and bladder normal to palpation External Female Exam: normal external appearance (No erythema or lesions.) and normal appearance of the urethra Urethra: normal appearance of the urethra Speculum Exam - Vagina: normal appearance of the vagina and normal vaginal discharge (Moderate mucus, white discharge.) Speculum Exam - Cervix: normal appearance of the cervix (Minimally friable.) and nulliparous Bimanual Exam- Vagina Uterus: normal bimanual exam, normal palpation, uterine size normal (Anteverted, normal size, nontender.), bladder normal to palpation, consistency normal, normal palpation (No CMT.), uterine mobility normal and uterine shape normal Bimanual Exam- Adnexa, other: normal adnexae, no masses, normal and non-tender Pelvic Support: normal Assessment Plan Assessment Plan (1) Encounter to establish care with new doctor: Code(s): Z76.89 - Persons encountering health services in other specified circumstances (2) Encounter for Routine Gyne cological Examination: Status: Acute Code(s): Z01.419 - Encounter for gynecological examination (general) (routine) without abnormal findings SNOMED Code(s): 766535625 Category: Medical Qualifiers: Gynecological examination findings: abnormal findings PRESENT Qualified Code(s): Z01.411 - Encounter for gynecological examination (general) (routine) with abnormal findings Plan - Letha Lemus MD: 1. [facility] evaluation. 2. Labs: Pap, PCR swab vagina, GC/chlamydia, UA/C S. 3. Patient to significant urinary frequency: Says she drinks a lot of water: Rule out UTI. (3) Mass of axillary tail of left breast: Status: Acute Code(s): N63.32 - Unspecified lump in axillary tail of the left breast SNOMED Code(s): 960848266 Category: Medical Plan - Letha Lemus MD: 1. Left axillary mass: 2 x 2 cm rubbery, mobile, nontender mass. 2. Bilateral ultrasound of breast. Orders: Orders: US Breast - Complete Bilat 1 Week (4) Contraception management: Status: Acute Code(s): Z30.9 - Encounter for contraceptive management, unspecified SNOMED Code(s): 009347542 Category: Medical Qualifiers: IUD management: initial prescription Plan - Letha Lemus MD: 1. Contraception: On BCP at present. 2. Desires hormonal IUD. To return in 1 week for Kyleena. Orders Other Orders: Orders: Cepheid CT/NG RT-PCR Today Z01.419 Vaginitis DNA Probe - Affirm Today Z01.419 Urine culture Today Z01.419 Thinprep w/HPV if ASCUS Today Z12.4 Follow Up: 1 Week Coding Level of Care Code 83319 New Pt Intermediate Comp History Detailed Exam Detailed Medical Decision Making Low Complexity Diagnoses Encounter to establish care with new doctor Z76.89 Encounter for Routine Gynecological Examination Z01.411 Gynecological examination findings: abnormal findings PRESENT Mass of axillary tail of left breast N63.32 Contraception management Z30.9 IUD management: initial prescription Time Spent (min) 35 <Electronically signed by Letha Lemus MD> 10/16/20 1501 Name Value Range Interpretation Code Description Data Susan rce(s) Supporting Document(s) ID Date Data Source [id number] 10/26/2020 07:07:00 AM EDT [facility] [id number] MENSTRUAL PERIOD 09/30/20C ollection Technique: BRUSH- SPATULAPATIENT INFORMATION: ORAL CONTRACEPTIVESPREVIOUS CYTOLOGY: OTHERPREVIOUS TREATMENT: NONEBody Site: CERVIX Name Value Range Interpretation Code Description Data Susan rce(s) Supporting Document(s) Microscopic observation [Identifier] in Vaginal fluid by Cyt o stain.thin prep [facility] ID Date Data Source [id number] 10/17/2020 03:19:00 PM EDT [facility] CALLED TO DR CHILDS 10/17/20 AT 0835 BY Marika ROCHA.CALLED TO SHEREE @ [facility] 10/19/20 @ 1000 BY MARVAT/NG IS A QUALITATIVE IN VITRO REAL-TIME PCR TEST FORDETECTION OF CHLAMYDIA TRACHOMATIS (CT) AND NEISSERIAGONORRHOEAE (NG)NORMAL VALUE FOR CT/NG IS " NO ORGANISMS DETECTED "C trach DNA Vag Ql ELAN+probeN gonorrhoea rRNA Vag Ql ELNA+probe Name Value Range Interpretation Code Description Data Susan rce(s) Supporting Document(s) Urine culture result No growth [facility] ID Date Data Source [id number] 10/19/2020 08:57:00 AM EDT [facility] CALLED TO DR CHILDS 10/17/20 AT 0835 BY Marika ROCHA.CALLED TO SHEREE @ [facility] 10/19/20 @ 1000 BY EJT/NG IS A QUALITATIVE IN VITRO REAL-TIME PCR TEST FORDETECTION OF CHLAMYDIA TRACHOMATIS (CT) AND NEISSERIAGONORRHOEAE (NG)NORMAL VALUE FOR CT/NG IS " NO ORGANISMS DETECTED "C trach DNA Vag Ql ELAN+probeN gonorrhoea rRNA Vag Ql ELAN+probe Name Value Range Interpretation Code Description Data Ssuan rce(s) Supporting Document(s) Trichomonas DNA Probe NOT DETECTED NOT DETECTED [facility] Gardnerella DNA Probe DETECTED NOT DETECTED Above high normal [facility] Increased levels of G. vaginalis may not be significantin the absence of signs and symptoms of bacterialvaginosis. Mary Kay species DNA Probe NOT DETECTED NOT DETECTED [facility] THIS TEST WAS PERFORMED AT:[address] [id number] MERATI,MD ID Date Data Source [id number] 10/16/2020 07:04:00 PM EDT [facility] CALLED TO DR CHILDS 10/17/20 AT 0835 BY Marika ROCHA.CALLED TO SHEREE @ [facility] 10/19/20 @ 1000 BY EJT/NG IS A QUALITATIVE IN VITRO REAL-TIME PCR TEST FORDETECTION OF CHLAMYDIA TRACHOMATIS (CT) AND NEISSERIAGONORRHOEAE (NG)NORMAL VALUE FOR CT/NG IS " NO ORGANISMS DETECTED "C trach DNA Vag Ql ELAN+probeN gonorrhoea rRNA Vag Ql ELAN+probe Name Value Range Interpretation Code Description Data Susan rce(s) Supporting Document(s) ID Date Data Source [id number] 08/26/2020 10:51:00 AM EDT [facility] Patient Name: LUIS MCCARTHY OB: 1995 Sex: F Pt Unit #: [id number] Location:[facility] Provider: Visit Date/Time: 08/26/20 Primary Insurance: Self Pay Secondary Insurance: Intake Nurse Note Intake Visit Reasons: PPD Placement/Read Nurse Note: Pt was given a PPD for screening purposes. Office Meds tuberculin PPD Performing Provider: Jack Granados M.D. Administered by: Ana Woody on 08/26/20 10:53 Dose Route Admin Location Lot Number Expiration Date NDC Manufactu rer 0.1 mL intradermal LFA [id number] 01/06/22 23256-030-66 [employer] Assessment Plan Assessment Plan (1) Encounter for tuberculin skin test: Code(s): Z11.1 - Encounter for screening for respiratory tuberculosis Orders: Orders: INJ - TB intradermal test Today <Electronically signed by Jack Granados MD> 08/26/20 1106 Name Value Range Interpretation Code Description Data Susan rce(s) Supporting Document(s) ID Date Data Source [id number] 07/30/2020 11:00:00 AM EST [facility] Name Value Range Interpretation Code Description Data Susan rce(s) Supporting Document(s) SARS coronavirus 2 RNA Not Detected [facility] This lab was ordered by [facility] and reported by [facility]. ID Date Data Source [id number] 07/28/2020 01:00:00 PM EST [facility] Name Value Range Interpretation Code Description Data Susan rce(s) Supporting Document(s) SARS coronavirus 2 RNA Not Detected [facility] This lab was ordered by [facility] and reported by [facility]. ID Date Data Source [id number] 06/22/2020 12:30:00 PM EST [facility] Name Value Range Interpretation Code Description Data Susan rce(s) Supporting Document(s) SARS coronavirus 2 RNA Not Detected [facility] This lab was ordered by [facility] and reported by [facility]. Procedure Social History No Information Vital Signs ID Date Data Source UNK Name Value Range Interpretation Code Description Data Source(s) Oxygen saturation in Arterial blood by Pulse oximetry 97 % 97 % [facility] ([facility]) Diastolic blood pressure 82 mm[Hg] 82 mm[Hg] [facility] ([facility]) Body mass index (BMI) [Ratio] 29.1 kg/m2 29.1 k g/m2 [facility] ([facility]) Heart rate 78 /min 78 /min [facility] ([facility]) Respiratory rate 18 /min 18 /min [facility] ( [facility]) Systolic blood pressure 122 mm[Hg] 122 mm[Hg] M [facility] ([facility]) Body height 66.5 [in_i] 66.5 [in_i] [facility] ([facility]) 5'6.50" Body weight 183.00 [lb_av] 183.00 [lb_av] [facility] ([facility]) Body temperature 97.5 [degF] 97.5 [degF] [facility] ([facility]) [place] body weight 130 [lb_av] 130 [lb_av] [facility] ([facility]) Systolic blood pressure 115 mm[Hg] 115 mm[Hg] [facility] ([facility]) Diastolic blood pressure 77 mm[Hg] 77 mm[Hg] [facility] ([facility]) Heart rate 68 /min 68 /min [facility] ([facility]) Body height 67 [in_i] 67 [in_i] [facility] ([facility]) 5'7" Body weight 181.25 [lb_av] 181.25 [lb_av] [facility] ([facility]) Body mass index (BMI) [Ratio] 28.4 kg/m2 28.4 k g/m2 [facility] ([facility]) [place] body weight 135 [lb_av] 135 [lb_av] [facility] ([facility]) Body weight 82.[address] [facility] ([facility]) Body surface area Derived from formula 1.[address] [facility] ([facility]) [place] body weight 130 [lb_av] 130 [lb_av] [facility] ([facility]) Diastolic blood pressure 72 mm[Hg] 72 mm[Hg] [facility] ([facility]) Body temperature 98.1 [degF] 98.1 [degF] [facility] ([facility]) Systolic blood pressure 118 mm[Hg] 118 mm[Hg] [facility] Body mass index (BMI) [Ratio] 29.3 kg/m2 29.3 k g/m2 [facility] ([facility]) Body height 66.5 [in_i] 66.5 [in_i] [facility] ([facility]) 5'6.50" Body weight 184.25 [lb_av] 184.25 [lb_av] [facility] ([facility]) Heart rate 78 /min 78 /min [facility] ([facility] Respiratory rate 18 /min 18 /min [facility] ( [facility]) Oxygen saturation in Arterial blood by Pulse oximetry 98 % 98 % [facility] ([facility] Respiratory rate 16 /min 16 /min [facility] ( [facility]) Body temperature 96.8 [degF] 96.8 [degF] [facility] ([facility]) Body height 67 [in_i] 67 [in_i] [facility] ([facility]) 5'7" Body weight 192.00 [lb_av] 192.00 [lb_av] [facility] ([facility]) Body mass index (BMI) [Ratio] 30.1 kg/m2 30.1 k g/m2 [facility] ([facility]) [place] body weight 135 [lb_av] 135 [lb_av] [facility] ([facility]) Body weight 87.[address] [facility] ([facility]) Body surface area Derived from formula 1.[address] [facility] ([facility]) Systolic blood pressure 140 mm[Hg] 140 mm[Hg] [facility] Diastolic blood pressure 102 mm[Hg] 102 mm[Hg] [facility] ([facility]) Heart rate 84 /min 84 /min [facility] ([facility]) Respiratory rate 16 /min 16 /min [facility] ( [facility]) Body temperature 96.8 [degF] 96.8 [degF] [facility] ([facility]) Body height 67 [in_i] 67 [in_i] [facility] ([facility]) 5'7" Body weight 192.00 [lb_av] 192.00 [lb_av] [facility] ([facility]) Body mass index (BMI) [Ratio] 30.1 kg/m2 30.1 k g/m2 [facility] ([facility]) [place] body weight 135 [lb_av] 135 [lb_av] [facility] ([facility]) Body weight 87.[address] [facility] ([facility]) Body surface area Derived from formula 1.[address] [facility] ([facility]) Systolic blood pressure 122 mm[Hg] 122 mm[Hg] [facility] Diastolic blood pressure 78 mm[Hg] 78 mm[Hg] [facility] ([facility]) Body height 66.5 [in_i] 66.5 [in_i] [facility] ([facility]) 5'6.50" Body weight 192.00 [lb_av] 192.00 [lb_av] [facility] ([facility]) Body mass index (BMI) [Ratio] 30.5 kg/m2 30.5 k g/m2 [facility] ([facility]) Heart rate 77 /min 77 /min [facility] ([facility] Respiratory rate 18 /min 18 /min [facility] ( [facility]) Body temperature 98.5 [degF] 98.5 [degF] [facility] ([facility]) Oxygen saturation in Arterial blood by Pulse oximetry 98 % 98 % [facility] ([facility]) [place] body weight 130 [lb_av] 130 [lb_av] [facility] ([facility]) [place] body weight 135 [lb_av] 135 [lb_av] [facility] ([facility]) Body height 67 [in_i] 67 [in_i] [facility] ([facility]) 5'7" Body weight 180.00 [lb_av] 180.00 [lb_av] [facility] ([facility]) Body mass index (BMI) [Ratio] 28.2 kg/m2 28.2 k g/m2 [facility] ([facility]) Body weight 81.[address] [facility] ([facility]) Body surface area Derived from formula 1.[address] [facility] ([facility]) Oxygen saturation in Arterial blood by Pulse oximetry 99 % 99 % [facility] ([facility]) Systolic blood pressure 120 mm[Hg] 120 mm[Hg] [facility] Diastolic blood pressure 74 mm[Hg] 74 mm[Hg] [facility] ([facility]) Body height 66.5 [in_i] 66.5 [in_i] [facility] ([facility]) 5'6.50" Body weight 184.38 [lb_av] 184.38 [lb_av] [facility] ([facility]) Body mass index (BMI) [Ratio] 29.3 kg/m2 29.3 k g/m2 [facility] Heart rate 87 /min 87 /min [facility] Respiratory rate 18 /min 18 /min [facility] ( [facility]) Body temperature 98.2 [degF] 98.2 [degF] [facility] ([facility]) [place] body weight 130 [lb_av] 130 [lb_av] [facility] ([facility]) Systolic blood pressure 122 mm[Hg] 122 mm[Hg] M [facility] ([facility]) Diastolic blood pressure 74 mm[Hg] 74 mm[Hg] [facility] ([facility]) Body height 66.5 [in_i] 66.5 [in_i] [facility] ([facility]) 5'6.50" Body weight 182.12 [lb_av] 182.12 [lb_av] [facility] ([facility]) Body mass index (BMI) [Ratio] 29.0 kg/m2 29.0 k g/m2 [facility] ([facility]) Heart rate 83 /min 83 /min [facility] ([facility]) Respiratory rate 18 /min 18 /min [facility] Body temperature 98.8 [degF] 98.8 [degF] [facility] ([facility]) Oxygen saturation in Arterial blood by Pulse oximetry 98 % 98 % [facility] ([facility])
[2021-03-25] MEDS ORDERED: ACETAMINOPHEN 1000MG 100ML IV BTL (OFIRMEV) (J0131 PER 10MG) As Ordered ONE ×2 (11:52→22:00)
[2021-03-25] MEDS ORDERED: HYDROmorphone HCL 2 MG/ML 1ML VIAL As Ordered ONE (12:45)
--- NOTE | 2021-03-25 15:32 | POST-OPPD ---
Postoperative Procedure Note Date Of Procedure: Mar 25, 2021 PREOPERATIVE DIAGNOSIS: Bilateral breast hypertrophy POSTOPERATIVE DIAGNOSIS: same PROCEDURE: Bilateral breast reduction SURGEON: Dr Tapia JEWELRY [employer]ING [employer]DEL [employer]KER: None ANESTHESIA: general ESTIMATED BLOOD LOSS: 50 cc FINDINGS: large breasts SPECIMENS: right breast 421 gm, left breast 487 gm COMPLICATIONS: none REPLACED: none DRAINS: 10 mm MIRELA x 2 POSTOPERATIVE CONDITION: stable PAT TAPIA DO Mar 25, 2021 15:32
--- NOTE | 2021-03-25 15:33 | ROOPDOC ---
[facility] Report Of Operation Report of Operation DATE OF PROCEDURE: 03/25/21 PREOPERATIVE DIAGNOSIS: Bilateral breast hypertrophy POSTOPERATIVE DIAGNOSIS: same PROCEDURE: Bilateral breast reduction SURGEON: Dr Tapia ON AIR DIRECTOR: None ANESTHESIA: general ESTIMATED BLOOD LOSS: 50 cc FINDINGS: large breasts SPECIMENS: right breast 421 gm, left breast 487 gm COMPLICATIONS: none REPLACED: none DRAINS: 10 mm MIRELA x 2 POSTOPERATIVE CONDITION: stable DESCRIPTION OF PROCEDURE: This is a 25-year-old female who upper back and neck pain worsened by large breasts. She is scheduled for bilateral breast r eduction. Risks, benefits, and alternatives were discussed with the patient in detail, and she is ready to proceed. The day of surgery, she was marked in the upright position and informed consent was obtained. She measures 29 cm on the right and 31 cm on the left cm from sternal notch to nipple, IMF at 21 cm bilaterally. She was brought into the operating room and placed in the supine position. Preoperative antibiotics and 5000 units heparin subcutaneous were given. Sequential pneumatic stocking were placed on the lower calves. General anesthesia was induced. She was prepped and draped in the usual sterile fashion. We started our procedure on the right side. Her nipple areolar complex was outlined 42 mm in diameter, and the patient was marked according superior medial pedicle. We started our incision by scoring the nipple areolar complex area, and then dissection was continued until the inferior lateral portion of the breast was resected. Hemostasis was obtained using electrocautery. The pedicle was de-epithelialized using Puga scissors, good perfusion to the nipple at all times. Wound was irrigated with Ancef solution. We used Exparel 6 cc for local anesthesia to infiltrate in the Pectoralis muscle as well as the breast tissue. [place] Tisseal coagulation agent applied. Than, pedicle was turned superior to its new location at 21 cm from sternal notch. The mound was re-created using conforming 0 Vicryl sutures. Pillars were closed with interrupted 3-0 Monocryl sutures. The vertical limb was 7 cm. Excess tissue inferiorly was measured and resected, creating the horizontal scar. Nipple area complex was brought into view through the new opening and sutured in place with 3-0 and 4-0 Monocryl sutures and a 5-0 plain. A 10 mm Mike-Rizo drain was placed through the lateral portion of the horizontal incision. Then we turned our attention to the left side. Her nipple areolar complex was outlined 42 mm in diameter, and the patient was marked according superior medial pedicle. We started our incision by scoring the nipple areolar complex area, and then dissection was continued until the inferior lateral portion of the breast was resected. Hemostasis was obtained using electrocautery. The pedicle was de- epithelialized using Puga scissors, good perfusion to the nipple at all times. Wound was irrigated with Ancef solution. We used Exparel 6 cc for local anesthesia to infiltrate in the Pectoralis muscle as well as the breast tissue. [place] Tisseal coagulation agent applied. Than, pedicle was turned superior to its new location at 21 cm from sternal notch. The mound was re-created using conforming 0 Vicryl sutures. Pillars were closed with interrupted 3-0 Monocryl sutures. The vertical limb was 7 cm. Excess tissue inferiorly was measured and resected, creating the horizontal scar. Nipple area complex was brought into view through the new opening and sutured in place with 3-0 and 4-0 Monocryl s utures and a 5-0 plain. A 10 mm Mike-Rizo drain was placed through the lateral portion of the horizontal incision. Remaining Exparel injected in the horizontal incision. Total Exparel use 20 cc. Resected tissue sent to pathology in two specimens right and left breast tissue. Right breast 421 grams, left breast 487 grams. Dressings were applied to vertical and horizontal incision: Prinio strips and Dermabond. Nipples areolar complex: Xeroform and a bulky dressing with a surgical bra. Patient was extubated in the operating room without difficulty and was transferred to the recovery room in stable condition. PAT TAPIA DO Mar 25, 2021 15:33
[2021-03-25] MEDS ORDERED: ACETAMINOPHEN TAB 650MG DOSE (2X325MG) PO PRN (15:35)
[2021-03-25] MEDS ORDERED: PERCOCET 5MG/325MG TAB PO PRN ×2 (15:35→16:25)
[2021-03-25] MEDS ORDERED: KETOROLAC TROMETHAMINE 10 MG TAB PO PRN (15:35)
[2021-03-25] MEDS ORDERED: ONDANSETRON 4MG/2ML VIAL IV PRN ×2 (15:35→16:25)
[2021-03-25] MEDS ORDERED: LR 1,000 ML IV SCH (16:25)
[2021-03-25] MEDS ORDERED: METOCLOPRAMIDE INJ 10MG/2ML VIAL (J2765 PER 1) IV PRN (16:25)
[2021-03-25] MEDS ORDERED: fentaNYL 100 MCG/2 ML INJECTION (J3010) IV PRN (16:25)
[2021-03-25 17:30] VITALS: BP 127/74; O2SAT 96
[2021-03-25] MEDS: LR 1,000 ML IV SCH (17:50)
[2021-03-25 18:00] VITALS: BP 120/72
[2021-03-25 19:00] VITALS: BP 117/71
[2021-03-25] MEDS ORDERED: MORPHINE 4 MG/ML 1ML VIAL/SYRINGE (J2270) IV ONE (20:00)
--- NOTE | 2021-03-25 20:10 | IPNPDOC ---
Subjective General Date Seen: Mar 25, 2021 Subject Chief Complaint/History The patient is a 25-year-old female admitted with a reason for visit of Bilateral Breast Hypertrophy. Patient s/p BBR earlier today. She started to experience increased pain and swelling on the left breast about 6:30 pm. I was called by her nurse to evaluate. Patient was seen and examined by the bedside. Left breast with significant swelling, twice the size the Right breast. Drain with clots and not draining. Patient is in NAD, but in pain. Current Medications Current Medications Current Medications Medications (Trade) Dose Ordered Sig/Chantell Route PRN Reason Start Time Stop Time Status Last Admin Dose Admin Acetaminophen (Tylenol Tab) 650 mg Q6H PRN PO MILD PAIN (PS 1-4) 03/25/21 15:35 Fentanyl Citrate (Sublimaze) 25 mcg Q5MP PRN IV PAIN LEVEL 8-10 03/25/21 16:25 03/25/21 18:25 DC Ketorolac Tromethamine (ToRADol) 10 mg Q6HP PRN PO MODERATE PAIN (PS 5-7) 03/25/21 15:35 03/30/21 15:34 03/25/21 17:54 Lactated Ringer's 1,000 ml @ 75 mls/hr [id number] IV 03/25/21 15:35 03/25/21 17:50 Lactated Ringer's 1,000 ml @ 100 mls/hr Q10H IV 03/25/21 16:25 03/25/21 18:25 DC Metoclopramide HCl (REGLAN INJection) 10 mg Q6HP PRN IV NAUSEA OR VOMITING 03/25/21 16:25 03/25/21 16:52 DC 03/25/21 16:52 Ondansetron HCl (ZOFRAN INJection) 4 mg Q4H PRN IV NAUSEA OR VOMITING 03/25/21 15:35 03/25/21 16:18 Ondansetron HCl (ZOFRAN INJection) 4 mg Q4HP PRN IV NAUSEA OR VOMITING 03/25/21 16:25 03/25/21 18:25 DC Oxycodone/ Acetaminophen (Percocet 5mg/ 325mg Tablet) 1 tab ASDIRECTED PRN PO PAIN LEVEL 1-4 03/25/21 16:25 03/25/21 18:25 DC Oxycodone/ Acetaminophen (Percocet 5mg/ 325mg Tablet) 2 tab Q4HP PRN PO PAIN LEVEL 8-10 03/25/21 15:35 03/25/21 19:21 Allergies Coded Allergies: No Known Allergies (Verified , 03/18/21) Objective Physical Examination Examination GENERAL APPEARANCE:Patient seen, laying in bed, awake, alert, and oriented. Co mfortable, in no acute distress. SKIN: Warm and moist. BREAST: Right breast soft, non-tender incisions intact. Left breast with significant swelling, consistent with expanded hematoma. MIRELA drains: L 5/R50 cc/24 hr. NAC: Viable, warm, symmetrical. LUNGS: Clear to auscultation bilaterally. No wheezing appreciated. HEART: No chest wall abnormalities. Regular rate and rhythm with no murmurs appreciated. ABDOMEN: Abdomen is soft, non-tender, non-distended. EXTREMITIES: No edema identified. No calf tenderness. Vital Signs Vital Signs Date Time Temp Pulse Resp B/P (MAP) Pulse Ox O2 Delivery O2 Flow Rate FiO2 03/25/21 19:51 17 03/25/21 19:00 98.0 75 117/71 (86) 95 Room Air 03/25/21 17:15 2.0 Impression S/p BBR, left breast hematoma. Plan to go to OR emergently for evacuation of hematoma. Risks, benefits and alternatives discussed with patient. Plan / VTE VTE Prophylaxis Ordered?: Yes PAT TAPIA DO Mar 25, 2021 20:10
[2021-03-25] MEDS ORDERED: propofoL 500 MG/50 ML VIAL As Ordered ONE (20:12)
[2021-03-25] MEDS ORDERED: fentaNYL 100 MCG/2 ML INJECTION (J3010) As Ordered ONE (20:12)
[2021-03-25] MEDS ORDERED: ROCURONIUM BROMIDE 50 MG/5 ML VIAL As Ordered ONE (20:13)
[2021-03-25] MEDS ORDERED: dexameTHASONE 4 MG/ML 1ML VIAL (J1100 PER 1MG) As Ordered ONE (20:13)
[2021-03-25] MEDS ORDERED: LIDOCAINE 2% 100MG/5ML SDV (FOR ANES.) As Ordered ONE (20:13)
[2021-03-25] MEDS ORDERED: MIDAZOLAM INJ 2MG/2ML VIAL (J2250 PER 1MG) As Ordered ONE (20:13)
[2021-03-25] MEDS ORDERED: ONDANSETRON 4MG/2ML VIAL As Ordered ONE (20:13)
[2021-03-25] MEDS ORDERED: PROMETHAZINE INJ 25 MG/ML VIAL (J2550) IV ONE (20:35)
[2021-03-25] MEDS ORDERED: SCOPOLAMINE 1MG TRANSDERMAL PATCH TOP ONE (20:35)
[2021-03-25] MEDS ORDERED: BUPIVACAINE LIPOSOME/PF 1.3% 20ML VIAL (13.3MG/ML)(EXPAREL)(C9290 PER1MG) As Ordered ONE (20:53)
[2021-03-25] MEDS ORDERED: ceFAZolin 2 GM/D5W 50 ML IV BAG (J0690 PER 500MG) As Ordered ONE (21:19)
[2021-03-25] MEDS ORDERED: PHENYLephrine 500MCG 5ML (100MCG/ML) SYRINGE As Ordered ONE (21:46)
[2021-03-25] MEDS ORDERED: SUGAMMADEX SODIUM 500 MG/5 ML VIAL (BRIDION) As Ordered ONE (22:02)
[2021-03-25] MEDS ORDERED: METOCLOPRAMIDE INJ 10MG/2ML VIAL (J2765 PER 1) As Ordered ONE (22:17)
--- NOTE | 2021-03-25 22:34 | POST-OPPD ---
Postoperative Procedure Note Date Of Procedure: Mar 25, 2021 PREOPERATIVE DIAGNOSIS: Left breast hematoma POSTOPERATIVE DIAGNOSIS: same PROCEDURE: Exploration left breast and evacuation of hematoma. SURGEON: Dr Tapia BRAND SPECIALIST: none ANESTHESIA: general ESTIMATED BLOOD LOSS: 500cc old clot. No active bleeding or introp blood loss. FINDINGS: hematoma left breast SPECIMENS: none COMPLICATIONS: none REPLACED: none DRAINS: 10 mm MIRELA drain. POSTOPERATIVE CONDITION: stable PAT TAPIA DO Mar 25, 2021 22:34
--- NOTE | 2021-03-25 22:35 | ROOPDOC ---
[facility] Report Of Operation Report of Operation DATE OF PROCEDURE: 03/25/21 PREOPERATIVE DIAGNOSIS: Left breast hematoma POSTOPERATIVE DIAGNOSIS: same PROCEDURE: Exploration left breast and evacuation of hematoma. SURGEON: Dr Tapia CASE MANAGER: none ANESTHESIA: general ESTIMATED BLOOD LOSS: 500cc old clot. No active bleeding or introp blood loss. FINDINGS: hematoma left breast SPECIMENS: none COMPLICATIONS: none REPLACED: none DRAINS: 10 mm MIRELA drain. POSTOPERATIVE CONDITION: stable DESCRIPTION OF PROCEDURE: This is a 25-year-old female status post bilateral breast reduction earlier today. Patient had uneventful recovery until later at night when she started feeling increased pain in her left breast as well as swelling. She was seen and examined at the bedside in the breast is consistent with formation of acute hematoma. She is scheduled for emergent exploration of the left breast and evacuation of the hematoma. Risk, benefits, and alternatives of the procedure discussed with the patient in detail. Informed consent was obtained. She was brought into the operating room, placed in supine position, preoperative antibiotics were given, sequential stockings placed on bilateral calves, general anesthesia was induced. Left MIRELA drain was removed. Then she was prepped and draped in the usual sterile fashion. Start procedure by removing sutures along the horizontal scar. Large hematoma was identified. It was removed under direct vision with lighted retractor. We have collected 500 cc of hematoma formation. No active bleeding identified. Small amount of generalized oozing identified. All tissues in viable good condition. The area was irrigated with 2 L of normal saline solution. Surgicel was placed in a deep part of the reconstructed breast. 10 mm Mike-Rizo drain was placed through the lateral portion of the horizontal incision. We started our closure with interrupted 3-0 Monocryl sutures along the horizontal scar. V-Loc 3-0 Monocryl suture was used as well. The vertical incision was closed with interrupted 3-0 Monocryl sutures. New Prineo dressing was placed on both breasts followed by Xeroform to the nipple areolar complexes and bulky dressing. Surgical bra was applied. Nipple areolar complex on both sides looks viable. Patient extubated in the operating room without any difficulties and t ransferred to recovery room in stable condition. PAT TAPIA DO Mar 25, 2021 22:34
[2021-03-26] MEDS ORDERED: METOCLOPRAMIDE INJ 10MG/2ML VIAL (J2765 PER 1) IV PRN
[2021-03-26] MEDS ORDERED: oxyCODONE 5MG TAB PO PRN
[2021-03-26] MEDS ORDERED: fentaNYL 100 MCG/2 ML INJECTION (J3010) IV PRN
[2021-03-26] MEDS ORDERED: ONDANSETRON 4MG/2ML VIAL IV PRN
[2021-03-26] MEDS ORDERED: NS 1,000 ML IV SCH (00:15)
[2021-03-26 00:33] LABS: HEMOGLOBIN 10.5 g/dl (12.0-15.5); MEAN CORPUSCULAR HEMOGLOBIN 29.4 pg (27.0-33.0); MEAN CORPUSCULAR HGB CONC 31.8 g/dl (32.0-36.5); MEAN CORPUSCULAR VOLUME 92.4 fl (80.0-96.0); PLATELET COUNT, AUTOMATED 265 10^3/uL (150-450); RED BLOOD COUNT 3.57 10^6/uL (4.00-5.40); WHITE BLOOD COUNT 16.8 10^3/uL (4.0-10.0)
[2021-03-26 00:44] VITALS: BP 99/60
[2021-03-26 00:44] LABS: BLOOD UREA NITROGEN 13 MG/DL (7-18); CALCIUM LEVEL 8.1 MG/DL (8.5-10.1); CARBON DIOXIDE LEVEL 27 MEQ/L (21-32); CHLORIDE LEVEL 108 MEQ/L (98-107); CREATININE FOR GFR 1.04 MG/DL (0.55-1.30); GLOMERULAR FILTRATION RATE > 60.0 (>60); GLUCOSE, FASTING 115 MG/DL (70-100); POTASSIUM SERUM 4.8 MEQ/L (3.5-5.1); SODIUM LEVEL 140 MEQ/L (136-145)
[2021-03-26 01:47] VITALS: BP 108/63
[2021-03-26 02:41] VITALS: BP 109/49
[2021-03-26 04:00] VITALS: BP 108/49
[2021-03-26] MEDS: LR 1,000 ML IV SCH (04:55)
[2021-03-26] MEDS: traMADol 50 MG TAB PO PRN ×2 (08:07→13:45)
--- NOTE | 2021-03-26 11:39 | IPNPDOC ---
Subjective General Date Seen: Mar 26, 2021 Subject Chief Complaint/History The patient is a 25-year-old female admitted with a reason for visit of Bilateral Breast Hypertrophy. Patient status post bilateral breast reduction and evacuation of hematoma left breast last night. She is doing well this morning. Pain controlled. Ambulating, tolerating regular diet. Current Medications Current Medications Current Medications Medications (Trade) Dose Ordered Sig/Chantell Route PRN Reason Start Time Stop Time Status Last Admin Dose Admin Acetaminophen (Tylenol Tab) 650 mg Q6H PRN PO MILD PAIN (PS 1-4) 03/25/21 15:35 03/26/21 11:25 Fentanyl Citrate (Sublimaze) 25 mcg Q5MP PRN IV PAIN LEVEL 8-10 03/25/21 16:25 03/25/21 18:25 DC Fentanyl Citrate (Sublimaze) 25 mcg Q5MP PRN IV PAIN LEVEL 8-10 03/26/21 00:00 03/26/21 02:00 DC Ketorolac Tromethamine (ToRADol) 10 mg Q6HP PRN PO MODERATE PAIN (PS 5-7) 03/25/21 15:35 03/25/21 22:56 DC 03/25/21 17:54 Lactated Ringer's 1,000 ml @ 75 mls/hr [id number] IV 03/25/21 15:35 03/25/21 17:50 Lactated Ringer's 1,000 ml @ 100 mls/hr Q10H IV 03/25/21 16:25 03/25/21 18:25 DC Metoclopramide HCl (REGLAN INJection) 10 mg Q6HP PRN IV NAUSEA OR VOMITING 03/25/21 16:25 03/25/21 16:52 DC 03/25/21 16:52 Metoclopramide HCl (REGLAN INJection) 10 mg Q6HP PRN IV NAUSEA OR VOMITING 03/26/21 00:00 03/26/21 02:00 DC Ondansetron HCl (ZOFRAN INJection) 4 mg Q4H PRN IV NAUSEA OR VOMITING 03/25/21 15:35 03/25/21 16:18 Ondansetron HCl (ZOFRAN INJection) 4 mg Q4HP PRN IV NAUSEA OR VOMITING 03/25/21 16:25 03/25/21 18:25 DC Ondansetron HCl (ZOFRAN INJection) 4 mg Q4HP PRN IV NAUSEA OR VOMITING 03/26/21 00:00 03/26/21 02:00 DC Oxycodone HCl (Roxicodone, Oxyir) 5 mg ASDIRECTED PRN PO PAIN LEVEL 1-4 03/26/21 00:00 03/26/21 02:00 DC Oxycodone/ Acetaminophen (Percocet 5mg/ 325mg Tablet) 1 tab ASDIRECTED PRN PO PAIN LEVEL 1-4 03/25/21 16:25 03/25/21 18:25 DC Oxycodone/ Acetaminophen (Percocet 5mg/ 325mg Tablet) 2 tab Q4HP PRN PO PAIN LEVEL 8-10 03/25/21 15:35 03/25/21 19:21 Sodium Chloride 1,000 ml @ 100 mls/hr Q10H IV 03/26/21 00:15 03/26/21 02:15 DC Tramadol HCl (Ultram) 50 mg Q6HP PRN PO MODERATE PAIN (PS 5-7) 03/25/21 23:00 03/26/21 08:07 Allergies Coded Allergies: No Known Allergies (Verified , 03/18/21) Objective Physical Examination Examination GENERAL APPEARANCE:Patient seen, laying in bed, awake, alert, and oriented. Comfortable, in no acute distress. SKIN: Warm and moist. BREAST: Right and left soft, non-tender incisions intact. MIRELA drains: Right side 5 cc left side 90 cc/24 hr. NAC: Viable, warm, symmetrical, mild post-op ecchymosis, no expanding hematoma. HEENT: Normocephalic, atraumatic. [place] palpebral conjunctiva, anicteric sclerae. Lips and mucosa appear moist. NECK: Supple, no thyromegaly. No obvious jugular venous distention. LUNGS: Clear to auscultation bilaterally. No wheezing appreciated. HEART: No chest wall abnormalities. Regular rate and rhythm with no murmurs appreciated. ABDOMEN: Abdomen is soft, non-tender, non-distended. EXTREMITIES: No edema identified. No calf tenderness. Vital Signs Vital Signs Date Time Temp Pulse Resp B/P (MAP) Pulse Ox O2 Delivery O2 Flow Rate FiO2 03/26/21 08:45 16 03/26/21 04:00 98.1 67 108/49 (68) 97 Room Air 03/25/21 17:15 2.0 I&Os I&O- Last 24 Hours up to 6 AM 03/26/21 05:59 Intake Total 3275 ml Output Total 655 ml Balance 2620 ml Laboratory Data Labs 24H Laboratory Tests 2 03/26/21 00:07: Nucleated Red Blood Cells % (auto) 0.0, Anion Gap 5L, Glomerular Filtration Rate > 60.0, Calcium Level 8.1L CBC/BMP Laboratory Tests 03/26/21 00:07 Impression Status post bilateral breast reduction postop day 1. Status post left breast hematoma evacuation postop day 1. She is doing much better today. White count attributed to acute blood loss. No indication for blood transfusion at this time. Dressings changed this morning. Stable for discharge. Instructions given to the patient. Follow-up with plastic surgery after discharge. Plan / VTE VTE Prophylaxis Ordered?: Yes PAT TAPIA DO Mar 26, 2021 11:39
[2021-03-26] MEDS ORDERED: TRAM50TA2 PO (11:54)
--- OUTSIDE RECORDS SUMMARY | 2021-04-19 08:03 | CCD | Continuity of Care Document ---
Author Author Zulma TAPIA DO Organization Unknown Address [address] [place] [id number] Phone [phone] Care Team Providers Care Seed Cleaning Machine Operator Name Role Phone [place] AUTM [phone] Liat Schneider D.O. AUTM [phone] AUTM Unavailable Sdio AUTM [phone] Problems Description No Information Available Social History Type Date Description Comments Sex Female ETOH Use 5 A Week Recreational Drug Use Denies Drug Use Tobacco Use Start: Unknown Denies Smoking Smoking Status Reviewed: 08/05/20 Denies Smoking Allergies and adverse reactions Description No Known Drug Allergies Medications Active Medications SIG Qnty Indications Ordering Provide r Date Esomeprazole Magnesium 20mg Capsul es DR 1 tab po qd [place] Dicyclomine HCL 10mg Capsules 1 tab po qd prn [place] Multivitamin Adult Tablets 1 by mouth every day Unknown Immunizations Description No Information Available Vital Signs Date Vital Result Comment 03/31/2021 4:09pm BP Systolic 118 mmHg BP Diastolic 78 mmHg Heart Rate 80 /min Respiratory Rate 14 /min Body Temperature 96.9 F Height 67 inches 5'7" [place] Body Weight 135 lb 03/03/2021 8:34am BP Systolic 115 mmHg BP Diastolic 77 mmHg Heart Rate 68 /min Height 67 inches 5'7" Weight 181.25 lb BMI (Body Mass Index) 28.4 kg/m2 [place] Body Weight 135 lb Weight 82.215 kg BSA (Body Surface Area) 1.94 m2 Results Test Acquired Date Facility Test Result H/L Range Note Complete Blood Count 03/26/2021 [facility] Main Lab [address] [place] [address] [phone] White Blood Count 16.8 10 High 4.0-10.0 Red Blood Count 3.57 10 Low 4.00-5.40 Hemoglobin 10.5 g/dL Low 12.0-15.5 Hematocrit 33.0 % Low 36.0-47.0 Mean Corpuscular Volume 92.4 fl Normal 80.0-96.0 Mean Corpuscular Hemoglobin 29.4 pg Normal 27.0-33.0 Mean Corpuscular HGB Conc 31.8 g/dL Low 32.0-36.5 Red Cell Distribution Width 13.2 % Normal 11.5-14.5 Platelet Count, Automated 265 10 Normal 150-450 Nucleated Red Blood Cell % 0.0 % Normal 0-0 Basic Metabolic Profile 03/26/2021 [facility] Main Lab [address] [place] [address] [phone] Glucose, Fasting 115 mg/dL High 70-100 Blood Urea Nitrogen 13 mg/dL Normal 7-18 Creatinine For GFR 1.04 mg/dL Normal 0.55-1.30 Glomerular Filtration Rate > 60.0 Normal >60 1 Sodium Level 140 mEq/L Normal 136-145 Potassium Serum 4.8 mEq/L Normal 3.5-5.1 Chloride Level 108 mEq/L High 98-107 Carbon Dioxide Level 27 mEq/L Normal 21-32 Anion Gap 5 mEq/L Low 8-16 Calcium Level 8.1 mg/dL Low 8.5-10.1 Laboratory test finding 03/25/2021 [facility] Main Lab [address] [place], [place] [id number] [phone] Pathology Request For Service (SEE NOTE) 2 1 Units are mL/min/1.73 m2 Chronic Kidney Disease Staging per NKF: Stage I & II GFR >=60 Normal to Mildly Decreased Stage III GFR 30-59 Moderately Decreased Stage IV GFR 15-29 Severely Decreased Stage V GFR <15 Very Little GFR Left ESRD GFR <15 on KEYCASE ASSEMBLER 2 FINAL DIAGNOSIS A - Breast, right, reduction mastectomy: Benign fibrous breast parenchyma and skin. B - Breast, left, reduction mastectomy: Benign fibrous breast parenchyma and skin. 03/29/2021 - 1416 CLINICAL DIAGNOSIS Bilateral breast hypertrophy 03/26/2021 - 1326 GROSS DIAGNOSIS A - Received in formalin labeled "right breast tissue 421 grams" and consists of multiple fragments of skin and fibroadipose breast parenchyma measuring 16.0 x 15.5 x 5.5 cm. in aggregate. Sectioning of the specimen reveals dense fibrous tissue with no grossly apparent mass lesions. Health Nurse sections from the dense tissue is submitted in one block. B - Received in formalin labeled "left breast tissue 487 grams" and consists of multiple fragments of skin and fibroadipose breast parenchyma measuring 17.0 x 15.0 x 5.5 cm. in aggregate. Sectioning of the specimen reveals dense fibrous tissue with no grossly apparent mass lesions. Health Nurse sections from the dense tissue is submitted in one block. 03/26/2021 - 1326 Signed PREMA HURLEY MD 03/29/2021 1416 Procedures Date Code Description Status 03/25/2021 23535 I & D Abscess/Hematoma Neck/Thor ax Soft Tissue Completed 03/25/2021 64109 Breast Reduction Completed Medical Devices Description No Information Available Encounters Type Date Location Provider Dx Diagnosis Office Visit 03/31/2021 10:15a [facility] Plastic Surgery Gabriela Tapia, DO Z48.89 Encounter for other specified surgical aftercare Z48.03 Encounter for change or alise loraine of drains Assessments Date Code Description Provider 03/31/2021 Z48.89 Encounter for other specified taylor rgical aftercare Gabrielarudi Tapia, DO 03/31/2021 Z48.03 Encounter for change or removal of drains Gabrielarudi Tapia, DO 03/25/2021 N62 Hypertrophy of breast Gabriela Pale y, DO 03/25/2021 L76.32 Postprocedural hemat rah of skin and subcutaneous tissue following other procedure Gabriela Marilee, DO 03/03/2021 N62 Hypertrophy of breast Gabriela Pale y, DO 03/03/2021 N64.81 Ptosis of breast Gabriela Marilee, DO 03/03/2021 Z01.818 Encounter for other preprocedura l examination Gabriela Tapia, DO Plan of Treatment Future Appointment(s):* 04/16/2021 9:45 am - Gabriela Tapia DO at [facility] Plastic Surgery Functional Status Description No Information Available Mental Status Description No Information Available Referrals Description No Information Available
--- OUTSIDE RECORDS SUMMARY | 2021-04-19 08:03 | CCD | Continuity of Care Document ---
Author Author Zulma TAPIA DO Organization Unknown Address [address] [place] [address] Phone [phone] Care Team Providers Care Legal Internship Name Role Phone [place] AUTM [phone] Liat Schneider D.O. AUTM AUTM Unavailable Sdio AUTM [phone] Problems Description No Information Available Social History [...] Temperature 96.9 F Height 67 inches 5'7" [place] Body Weight 135 lb 03/03/2021 8:34am BP Systolic 115 mmHg BP Diastolic 77 mmHg Heart Rate 68 /min Height 67 inches 5'7" Weight 181.25 lb BMI (Body Mass Index) 28.4 kg/m2 [place] Body Weight 135 lb Weight 82.215 kg BSA (Body Surface Area) 1.94 m2 Results Test Acquired Date Facility Test Result H/L Range Note Complete Blood Count 03/26/2021 [facility] Main Lab [address] [place] [address] [phone] White Blood Count 16.8 10 High 4.0-10.0 [...] % Normal 0-0 Basic Metabolic Profile 03/26/2021 [facility] Main Lab [address] [place] [address] [phone] Glucose, Fasting 115 mg/dL High 70-100 Blood [...] mg/dL Low 8.5-10.1 Laboratory test finding 03/25/2021 [facility] Main Lab [address] [place], [place] [id number] [phone] Pathology Request For Service (SEE NOTE) 2 1 Units are mL/min/1.73 m2 Chronic Kidney Disease Staging per NKF: Stage I & II GFR >=60 Normal to Mildly Decreased Stage III GFR 30-59 Moderately Decreased Stage IV GFR 15-29 Severely Decreased Stage V GFR <15 Very Little GFR Left ESRD GFR <15 on THREAD WINDER 2 FINAL DIAGNOSIS A - Breast, right, [...] tissue with no grossly apparent mass lesions. Senior Field Service Engineer sections from the dense tissue is submitted in one block. B - Received in formalin labeled "left breast tissue 487 grams" and consists of multiple fragments of skin and fibroadipose breast parenchyma measuring 17.0 x 15.0 x 5.5 cm. in aggregate. Sectioning of the specimen reveals dense fibrous tissue with no grossly apparent mass lesions. Senior Field Service Engineer sections from the dense tissue is submitted in one block. 03/26/2021 - 1326 Signed PREMA HURLEY MD 03/29/2021 1416 Procedures Date Code Description Status 03/25/2021 55678 I & D Abscess/Hematoma Neck/Thor ax Soft Tissue Completed 03/25/2021 44219 Breast Reduction Completed Medical Devices Description No Information Available Encounters Type Date Location Provider Dx Diagnosis Office Visit 03/31/2021 10:15a [facility] Plastic Surgery Gabriela Tapia, DO Z48.89 Encounter for other specified surgical aftercare Z48.03 Encounter for change or alise loraine of drains Assessments Date Code Description Provider 03/31/2021 Z48.89 Encounter for other specified taylor rgical aftercare Gabriela Marilee, DO 03/31/2021 Z48.03 Encounter for change or removal of drains Gabriela Marilee, DO 03/25/2021 N62 Hypertrophy of breast Gabriela Pale y, DO 03/25/2021 L76.32 Postprocedural hemat rah of skin and subcutaneous tissue following other procedure Gabriela Marilee, DO 03/03/2021 N62 Hypertrophy of breast Gabriela Pale y, DO 03/03/2021 N64.81 Ptosis of breast Gabriela Marilee, DO 03/03/2021 Z01.818 Encounter for other preprocedura l examination Gabriela Marilee, DO Plan of Treatment No Information Available Functional Status Description No Information Available Mental Status Description No Information Available Referrals Description No Information Available
--- OUTSIDE RECORDS SUMMARY | 2021-04-19 08:03 | CCD | Continuity of Care Document ---
Author Zulma Guo D.O. Organization Unknown Address [address] [place] [address] Phone [phone] Care Team Providers Care Forest Management Professor Name Role Phone Liat Schneider D.O. AUTM [phone] Brijesh Caceres M.D. AUTM [phone] Gabriela Hunt DO AUTM [phone] Problems Active Problems Provider Date Essential hypertension [...] Seat Belt/Car Seat Always uses seat belt Allergies and adverse reactions Description No Known [...] F O2 % BldC Oximetry 97 % [place] Body Weight 130 lb 01/15/2021 11:18am BP Systolic 118 mmHg BP Diastolic 72 mmHg Height 66.5 inches 5'6.50" Weight 184.25 lb BMI (Body Mass Index) 29.3 kg/m2 Heart Rate 78 /min Respiratory Rate 18 /min Body Temperature 98.1 F O2 % BldC Oximetry 98 % [place] Body Weight 130 lb Results Test Acquired Date Facility Test Result H/L Range Note Comprehensive Metabolic Prof 04/04/2021 [place] [address] [phone] BUN SerPl-mCnc 7 mg/dL Low 9-23 1 Sodium SerPl-sCnc 138 mmol/L Normal 132-146 Potassium SerPl-sCnc 3.6 mmol/L Normal 3.5-5.5 Chloride SerPl-sCnc 106 mmol/L Normal 99-109 Co2 SerPl-sCnc 25 mmol/L Normal 20-31 Anion Gap SerPl-sCnc 11 mmol/L Normal 8-16 Glucose SerPl-mCnc 98 mg/dL Normal 74-106 Creatinine 0.8 mg/dL Normal 0.5-1.1 GFR/Bsa.pred SerPlBld-ArVRat Greater Than 60 Above 60 Alt SerPl w P-5'-P-cCnc 40 U/L Normal 10-49 Ast SerPl w P-5'-P-cCnc 20 U/L Normal 0-33 Alp SerPl-cCnc 91 U/L Normal 45-129 Calcium SerPl-mCnc 8.8 mg/dL Normal 8.5-10.1 Bilirub SerPl-mCnc 0.3 mg/dL Normal 0.3-1.2 Albumin SerPl BCP-mCnc 3.4 g/dL Normal 3.2-4.8 Prot SerPl-mCnc 7.6 g/dL Normal 5.7-8.2 PT/PTT 04/04/2021 [place] [address] [phone] Prothrombin Time (Patient) 10.9 s Normal 9.6-1 2.3 Inr 1.0 Normal 0.9-1.1 2 Screen aPTT 29.9 s Normal 22.7-31.6 CBC With Auto Diff 04/04/2021 [place] [address] [phone] WBC # Bld Auto 10.3 10*3/uL Normal 4.45-10.71 RBC # Bld Auto 3.41 10*6/uL Low 4.20-5.40 Hgb Bld-sCnc 9.9 g/dL Low 10.7-15.4 Hct VFr Bld Auto 30.6 % Low 37-47 MCV BldCo Auto 90 fL Normal 80-96 MCH RBC Qn Auto 29 pg Normal 27-31 MCHC BldCo-mCnc 32 g/dL Low 33-37 RDW RBC Auto 13 % Normal 11-15 Platelet # Bld Auto 280 10*3/uL Normal 130-472 PMV Bld 8.7 fL Low 9.1-13.1 Neutrophils/leuk NFr Bld Auto 79.6 % High 41-77 Neutrophils # Bld Auto 8.2 U High 1.7-7.6 Lymphocytes/leuk NFr Bld Auto 11.3 % Low 14-46 Lymphocytes # Bld Auto 1.2 U Normal 0.6-4.6 Monocytes/leuk NFr Bld Auto 8.6 % Normal 4-12 Monocytes # Bld Auto 0.9 U Normal 0.2-1.2 Eosinophil/leuk NFr Bld Auto 0.1 % Normal 0-7 Eosinophil # Bld Auto 0.0 U Normal 0.0-0.5 Basophils/leuk NFr Bld Auto 0.2 % Low 0.4-1.3 Basophils # Bld Auto 0.0 U Normal 0.0-0.2 Nucleated Red Blood Cell 0 % Nucleated Red Blood Cell# 0 U Imm Granulocytes Bld Ql Auto 0.2 Normal 0-2 Imm Granulocytes # Bld Auto 0.0 U Normal 0-0.1 Manual diff Bld NO Complete Blood Count 03/26/2021 [facility] Outpatient Test ing (Registration) [address] [place] [address] [phone] White Blood Count 16.8 10 High 4.0-10.0 [...] % Normal 0-0 Basic Metabolic Profile 03/26/2021 [facility] Outpatient T esting (Registration) [address] [place] [address] [phone] Glucose, Fasting 115 mg/dL High 70-100 Blood Urea Nitrogen 13 mg/dL Normal 7-18 Creatinine For GFR 1.04 mg/dL Normal 0.55-1.30 Glomerular Filtration Rate > 60.0 Normal >60 3 Sodium Level 140 mEq/L Normal 136-145 Potassium Serum 4.8 mEq/L Normal 3.5-5.1 Chloride Level 108 mEq/L High 98-107 Carbon Dioxide Level 27 mEq/L Normal 21-32 Anion Gap 5 mEq/L Low 8-16 Calcium Level 8.1 mg/dL Low 8.5-10.1 Coronavirus 2019 Nasopharygeal 03/20/2021 [facility] Outpa tient Testing (Registration) [address] [place] [address] [phone] Coronavirus 2019 Nasopharygeal ASSAY INFORMATIO <SEE N OTE> 4 CBC With Differential 03/20/[address] [address] [phone] White Blood Count 5.2 10 Normal 4.0-10.0 [...] 36.0-66.0 Lymph % 39.7 % Normal 24.0-44.0 [place] % 11.3 % High 2.0-8.0 Eos % 1.5 % Normal 0.0-3.0 Baso % 1.1 % High 0.0-1.0 Immature Granulocyte % 0.2 % Normal 0-3.0 Nucleated Red Blood Cell % 0.0 % Normal 0-0 Neutrophils # 2.4 10 Normal 1.5-8.5 Lymph # 2.1 10 Normal 1.5-5.0 [place] # 0.6 10 Normal 0.0-0.8 Eos # 0.1 10 Normal 0.0-0.5 Baso # 0.1 10 Normal 0.0-0.2 Comprehensive Metabolic Profil 03/20/[address] [address] [phone] Glucose, Fasting 83 mg/dL Normal 70-100 Blood Urea Nitrogen 15 mg/dL Normal 7-18 Creatinine For GFR 1.01 mg/dL Normal 0.55-1.30 Glomerular Filtration Rate > 60.0 Normal >60 5 Sodium Level 139 mEq/L Normal 136-145 Potassium [...] Low 1.2-2.2 Ua W/Culture If Indicated 01/19/2021 [facility] [place] [address] [phone] Color Ur YELLOW 6 Appearance Ur CLEAR Clear pH Ur Strip [...] Strip NEGATIVE Negative Urine Microscopic? (Cif) NO Order 01/15/2021 In House Orders EKG see report Laboratory test finding 01/15/[address] [address] [phone] Troponin I < 0.02 NG/ML Normal < 0.10 7 PT & Aptt 01/15/2021 [facility] nter [address] [place] [address] [phone] Prothrombin Time 13.2 seconds Normal 12.7-14.5 Inr 0.96 Normal 8 Partial Thromboplastin Time 29.2 seconds Normal 25.9-37.0 Laboratory test finding 01/15/[address] [address] [phone] D-Dimer Quant 361.67 ng/ml Normal <500 Comprehensive Metabolic Profil 01/15/[address] [address] [phone] Glucose, Fasting 95 mg/dL Normal 70-100 Blood Urea Nitrogen 12 mg/dL Normal 7-18 Creatinine For GFR 0.88 mg/dL Normal 0.55-1.30 Glomerular Filtration Rate > 60.0 Normal >60 9 Sodium Level 139 mEq/L Normal 136-145 Potassium [...] Normal 3.2-5.2 Albumin/Globulin Ratio 1.1 Low 1.2-2.2 CBC With Differential 01/15/[address] [address] [phone] White Blood Count 7.9 10 Normal 4.0-10.0 [...] 36.0-66.0 Lymph % 27.6 % Normal 24.0-44.0 [place] % 9.6 % High 2.0-8.0 Eos % 1.8 % Normal 0.0-3.0 Baso % 1.3 % High 0.0-1.0 Immature Granulocyte % 0.4 % Normal 0-3.0 Nucleated Red Blood Cell % 0.0 % Normal 0-0 Neutrophils # 4.7 10 Normal 1.5-8.5 Lymph # 2.2 10 Normal 1.5-5.0 [place] # 0.8 10 Normal 0.0-0.8 Eos # 0.1 10 Normal 0.0-0.5 Baso # 0.1 10 Normal 0.0-0.2 Ua dipstick Pnl Ur Strip.auto 12/24/2020 [facility] [place] [address] [phone] Color Ur DARK YELLOW 10 Appearance Ur CLEAR Clear pH Ur Strip 6.5 5-8 Sp Gr Ur Refractometry 1.005 1.005-1.030 Leukocyte esterase Ur Ql Strip SMALL Abnormal Negative 11 Nitrite Ur Ql Strip POSITIVE High Negative 12 Prot Ur Ql Strip NEGATIVE Negative Glucose Ur Strip.auto-mCnc NEGATIVE Negative Ketones Ur Ql Strip NEGATIVE Negative Urobilinogen Ur Ql 1 EU/dl 0.2-1 Eu/dl Bilirub Ur Ql Strip.auto NEGATIVE Negative RBC # Ur Strip NEGATIVE Negative Urine Microscopic? (Cif) Microscopic Adde <SEE NOTE> 13 Add On Microscopic 12/24/2020 [place] [address] [phone] WBC # Ur Manual 8-12 UCUM High 0-5 Cells UrnS Micro OCCASIONAL Bacteria UrnS Ql Micro SMALL AMOUNT High Negative Culture Urine 12/24/2020 [place] [address] [phone] Urine culture result Gram neg bacilli <SEE NOTE> 14 Bacteria Ur Cult ESCHERICHIA COLI 15 [place] count Less than 10,000 16 Gram Negative Panle 4 12/24/2020 [place] [address] [phone] Trimethoprim/Sulfamethoxazole <2/38 Susceptible Amoxicillin+Clavulanate [Susceptibility] by Minimum [...] Ertapenem [Susceptibility] by Minimum inhibitory concentrati on (Borsi) <0.5 Susceptible Gentamicin [Susceptibility] by Minimum inhibitory [...] Minimum inhibitory concentration (Boris) <16 Susceptible 1 COUGH,HEADACH,STUFFY NOSE 2 THE INR IS OPERATIONALLY DEF INED FOR FRESH PLASMA FROM PATIENTS STABILIZED ON ORAL ANTICOAGULANTS. ROUTINE ANTICOAGULANT THERAPY 2.0-3.0 RECURRENT SYSTEMIC EMBOLISM/HEART VALVE REPLACEMENT 2.5-3.5 3 Units are mL/min/1.73 m2 Chronic Kidney Disease Staging per NKF: Stage I & II GFR >=60 Normal to Mildly Decreased Stage III GFR 30-59 Moderately Decreased Stage IV GFR 15-29 Severely Decreased Stage V GFR <15 Very Little GFR Left ESRD GFR <15 on ECCLESIASTICAL WORKER 4 ASSAY INFORMATION: Real Time RT-PCR NOTE: The COVID-19 assay has been cleared by the U.S. Food and Drug Administration under the Emergency Use Authorization (EUA). [facility] [employer] and [facility] are designated as high complexity laboratories by the Clinical Laboratory Improvement Amendments of 1988(CLIA) and are qualified to perform this test. Not Detected 5 Units are mL/min/1.73 m2 Chronic Kidney Disease Staging per NKF: Stage I & II GFR >=60 Normal to Mildly Decreased Stage III GFR 30-59 Moderately Decreased Stage IV GFR 15-29 Severely Decreased Stage V GFR <15 Very Little GFR Left ESRD GFR <15 on ECCLESIASTICAL WORKER 6 Z11.3 7 Troponin I Reference Interva l for [employer] LOCI: 99th Percentile= 0.00-0.045 ng/ml Risk Stratification: <= 0.10 ng/ml Decreased Risk for Adverse Clinical Events. 0.10-1.50 ng/ml Increased Risk for Adv erse Clinical Events. Evaluation of additional criterion and/or repeat testing in 2-6 hours is suggested to rule out myocardial damage. >= 1.50 ng/ml Indicative of Myocardial Injury. 8 THERAPUTIC HUMAN INR VALUES INDICATIONS NORMAL RANGES PROPHYLAXIS/TREATMENT OF: VENOUS THROMBOSIS 2.0-3.0 PULMONARY EMBOLISM 2.0-3.0 PREVENTION OF SYSTEMIC EMBOLISM FROM: TISSUE HEART VALVES 2.0-3.0 ACUTE MYOCARDIAL INFARCTION 2.0-3.0 VALVULAR HEART DISEASE 2.0-3.0 ATRIAL FIBRILLATION 2.0-3.0 MECHANICAL VALVES(HIGH RISK) 2.5-3.5 RECURRENT MYOCARDIAL INFARCTION 2.5-3.5 9 Units are mL/min/1.73 m2 Chronic Kidney Disease Staging per NKF: Stage I & II GFR >=60 Normal to Mildly Decreased Stage III GFR 30-59 Moderately Decreased Stage IV GFR 15-29 Severely Decreased Stage V GFR <15 Very Little GFR Left ESRD GFR <15 on ECCLESIASTICAL WORKER 10 N39.0,R30.0 11 A Culture has been added to this specimen per established criteria 12 A Culture has been added to this specimen per established criteria 13 Microscopic Added 14 Gram neg bacilli results to follow 15 GRAM NEGATIVE NATE 16 Less than 10,000 Procedures Date Code Description Status 03/05/2021 99090 Office/Outpatient Established Lo w MDM 20-29 Min Completed 01/15/2021 71851 Office/Outpatient Established Mo d MDM 30-39 Min Completed 01/15/2021 49899 Electrocardiogram Complete Compl eted Medical Devices Description No Information Available Encounters Type Date Location Provider Dx Diagnosis Office Visit 03/05/2021 9:30a [facility] GURDEEP Draper Z01.818 Encounter for other preproce dural examination N62 Hypertrophy of breast K21.00 Gastro-esophageal reflux dis with esophagitis, without bleed Office Visit 01/15/2021 11:30a [facility] GURDEEP Draper R09.1 Pleurisy Assessments Date Code Description Provider 03/05/2021 Z01.818 Encounter for other preprocedura l examination GURDEEP Draper 03/05/2021 N62 Hypertrophy of breast GURDEEP Morgan 03/05/2021 K21.00 Gastro-esophageal re flux disease with esophagitis, without bleeding GURDEEP Draper 01/15/2021 R09.1 Pleurisy GURDEEP Draper Plan of Treatment Future Appointment(s):* 07/23/2021 10:00 am - GURDEEP Draper at [facility] Functional Status Description No Information Available Mental Status Description No Information Available Referrals Description No Information Available
--- OUTSIDE RECORDS SUMMARY | 2021-04-19 08:03 | CCD | Continuity of Care Document ---
Author Author Zulma TAPIA DO Organization Unknown Address [address] [place] [address] Phone [phone] Care Team Providers Care Acupressure Therapist Name Role Phone [place] AUTM [phone] Liat Schneider D.O. AUTM AUTM Unavailable Sdio AUTM [phone] Problems Description No Information Available Social History [...] Temperature 96.9 F Height 67 inches 5'7" [place] Body Weight 135 lb 03/03/2021 8:34am BP Systolic 115 mmHg BP Diastolic 77 mmHg Heart Rate 68 /min Height 67 inches 5'7" Weight 181.25 lb BMI (Body Mass Index) 28.4 kg/m2 [place] Body Weight 135 lb Weight 82.215 kg BSA (Body Surface Area) 1.94 m2 Results Test Acquired Date Facility Test Result H/L Range Note Complete Blood Count 03/26/2021 [facility] Main Lab [address] [place] [address] [phone] White Blood Count 16.8 10 High 4.0-10.0 [...] % Normal 0-0 Basic Metabolic Profile 03/26/2021 [facility] Main Lab [address] [place] [address] [phone] Glucose, Fasting 115 mg/dL High 70-100 Blood [...] mg/dL Low 8.5-10.1 Laboratory test finding 03/25/2021 [facility] Main Lab [address] [place], [place] [address] [phone] Pathology Request For Service (SEE NOTE) 2 1 Units are mL/min/1.73 m2 Chronic Kidney Disease Staging per NKF: Stage I & II GFR >=60 Normal to Mildly Decreased Stage III GFR 30-59 Moderately Decreased Stage IV GFR 15-29 Severely Decreased Stage V GFR <15 Very Little GFR Left ESRD GFR <15 on FORMULA WEIGHER 2 FINAL DIAGNOSIS A - Breast, right, [...] tissue with no grossly apparent mass lesions. Fishing Lure Assembler sections from the dense tissue is submitted in one block. B - Received in formalin labeled "left breast tissue 487 grams" and consists of multiple fragments of skin and fibroadipose breast parenchyma measuring 17.0 x 15.0 x 5.5 cm. in aggregate. Sectioning of the specimen reveals dense fibrous tissue with no grossly apparent mass lesions. Fishing Lure Assembler sections from the dense tissue is submitted in one block. 03/26/2021 - 1326 Signed PERMA HURLEY MD 03/29/2021 1416 Procedures Date Code Description Status 03/25/2021 82074 I & D Abscess/Hematoma Neck/Thor ax Soft Tissue Completed 03/25/2021 25611 Breast Reduction Completed Medical Devices Description No Information Available Encounters Type Date Location Provider Dx Diagnosis Office Visit 03/31/2021 10:15a [facility] Plastic Surgery Gabriela Tapia, DO Z48.89 Encounter [...] 9:45 am - Gabriela Tapia DO at [facility] Plastic Surgery Functional Status Description No Information Available Mental Status Description No Information Available Referrals Description No Information Available
--- OUTSIDE RECORDS SUMMARY | 2021-04-19 08:03 | CCD | Continuity of Care Document ---
Author Author Zulma TAPIA DO Organization Unknown Address [address] [place] [address] Phone [phone] Care Team Providers Care Roasterman Name Role Phone [place] AUTM [phone] Liat Schneider D.O. AUTM AUTM Unavailable Sdio AUTM [phone] Problems Description No Information Available Social History [...] Temperature 96.9 F Height 67 inches 5'7" [place] Body Weight 135 lb 03/03/2021 8:34am BP Systolic 115 mmHg BP Diastolic 77 mmHg Heart Rate 68 /min Height 67 inches 5'7" Weight 181.25 lb BMI (Body Mass Index) 28.4 kg/m2 [place] Body Weight 135 lb Weight 82.215 kg BSA (Body Surface Area) 1.94 m2 Results Test Acquired Date Facility Test Result H/L Range Note Complete Blood Count 03/26/2021 [facility] Main Lab [address] [place] [address] [phone] White Blood Count 16.8 10 High 4.0-10.0 [...] % Normal 0-0 Basic Metabolic Profile 03/26/2021 [facility] Main Lab [address] [place] [address] [phone] Glucose, Fasting 115 mg/dL High 70-100 Blood [...] mg/dL Low 8.5-10.1 Laboratory test finding 03/25/2021 [facility] Main Lab [address] [place], [place] [address] [phone] Pathology Request For Service (SEE NOTE) 2 1 Units are mL/min/1.73 m2 Chronic Kidney Disease Staging per NKF: Stage I & II GFR >=60 Normal to Mildly Decreased Stage III GFR 30-59 Moderately Decreased Stage IV GFR 15-29 Severely Decreased Stage V GFR <15 Very Little GFR Left ESRD GFR <15 on STRATEGIC INTELLIGENCE OFFICER 2 FINAL DIAGNOSIS A - Breast, right, [...] tissue with no grossly apparent mass lesions. Sr. Operations Manager sections from the dense tissue is submitted in one block. B - Received in formalin labeled "left breast tissue 487 grams" and consists of multiple fragments of skin and fibroadipose breast parenchyma measuring 17.0 x 15.0 x 5.5 cm. in aggregate. Sectioning of the specimen reveals dense fibrous tissue with no grossly apparent mass lesions. Sr. Operations Manager sections from the dense tissue is submitted in one block. 03/26/2021 - 1326 Signed PREMA HURLEY MD 03/29/2021 1416 Procedures Date Code Description Status 03/25/2021 72004 I & D Abscess/Hematoma Neck/Thor ax Soft Tissue Completed 03/25/2021 90486 Breast Reduction Completed Medical Devices Description No Information Available Encounters Type Date Location Provider Dx Diagnosis Office Visit 03/31/2021 10:15a [facility] Plastic Surgery Gabriela Tapia, DO Z48.89 [...] 9:45 am - Gabriela Tapia DO at [facility] Plastic Surgery Functional Status Description No Information Available Mental Status Description No Information Available Referrals Description No Information Available
--- OUTSIDE RECORDS SUMMARY | 2021-04-19 08:03 | CCD | Continuity of Care Document ---
Author Author Zulma TAPIA DO Organization Unknown Address [address] [place] [address] Phone [phone] Care Team Providers Care Director Of Coding Name Role Phone [place] AUTM [phone] Liat Schneider D.O. AUTM [phone] AUTM Unavailable Sdio AUTM [phone] Problems Description No Information Available Social History [...] lb BMI (Body Mass Index) 28.4 kg/m2 [place] Body Weight 135 lb Weight 82.215 kg BSA (Body Surface Area) 1.94 m2 08/05/2020 1:58pm BP Systolic 140 mmHg BP Diastolic 102 mmHg Heart Rate 84 /min Respiratory Rate 16 /min Body Temperature 96.8 F Height 67 inches 5'7" Weight 192.00 lb BMI (Body Mass Index) 30.1 kg/m2 [place] Body Weight 135 lb Weight 87.091 kg BSA (Body Surface Area) 1.99 m2 Results Test Acquired Date Facility Test Result H/L Range Note Complete Blood Count 03/26/2021 [facility] Main Lab [address] [place] [address] [phone] White Blood Count 16.8 10 High 4.0-10.0 [...] % Normal 0-0 Basic Metabolic Profile 03/26/2021 [facility] Main Lab [address] [place] [address] [phone] Glucose, Fasting 115 mg/dL High 70-100 Blood [...] mg/dL Low 8.5-10.1 Laboratory test finding 03/25/2021 [facility] Main Lab [address] [place] [address] [phone] Pathology Request For Service (SEE NOTE) 2 1 Units are mL/min/1.73 m2 Chronic Kidney Disease Staging per NKF: Stage I & II GFR >=60 Normal to Mildly Decreased Stage III GFR 30-59 Moderately Decreased Stage IV GFR 15-29 Severely Decreased Stage V GFR <15 Very Little GFR Left ESRD GFR <15 on CRAWLER CRANE OPERATOR 2 FINAL DIAGNOSIS A - Breast, right, reduction mastectomy: Benign fibrous breast parenchyma and skin. B - Breast, left, reduction mastectomy: Benign fibrous breast parenchyma and skin. 03/29/2021 - 141 CLINICAL DIAGNOSIS Bilateral breast hypertrophy 03/26/2021 - 1326 GROSS DIAGNOSIS A - Received in formalin labeled "right breast tissue 421 grams" and consists of multiple fragments of skin and fibroadipose breast parenchyma measuring 16.0 x 15.5 x 5.5 cm. in aggregate. Sectioning of the specimen reveals dense fibrous tissue with no grossly apparent mass lesions. Leather Grader sections from the dense tissue is submitted in one block. B - Received in formalin labeled "left breast tissue 487 grams" and consists of multiple fragments of skin and fibroadipose breast parenchyma measuring 17.0 x 15.0 x 5.5 cm. in aggregate. Sectioning of the specimen reveals dense fibrous tissue with no grossly apparent mass lesions. Leather Grader sections from the dense tissue is submitted in one block. 03/26/20211326 Signed PREMA HURLEY MD 03/29/2021 1416 Procedures Description No Information Available Medical Devices Description No Information Available Encounters Description No Information Available Assessments Date Code Description Provider 03/03/2021 N62 Hypertrophy of breast Gabriela bettencourt DO 03/03/2021 N64.81 Ptosis of breast Gabriela Tapia DO 03/03/2021 Z01.818 Encounter for other preprocedura l examination Gabriela Tapia DO Plan of Treatment Future Appointment(s):* 04/16/2021 9:45 am - Gabriela Tapia DO at [facility] Plastic Surgery 03/03/2021 - Gabriela Tapia DO* [...]
--- OUTSIDE RECORDS SUMMARY | 2021-04-19 08:04 | CCD | Continuity of Care Document ---
Author Organization Unknown Address Unknown Phone Unavailable Care Team Providers Care [employer] Name Role Phone Liat Schneider D.O. AUTM Brijesh Caceres M.D. AUTM [phone] Gabriela Hunt DO AUTM [phone] Problems Active Problems Provider Date Essential hypertension [...] by mouth every day 90caps K21.0 Kathrine ArriagaO. Dicyclomine HCL 10mg Capsules take one tablet [...] F O2 % BldC Oximetry 97 % [place] Body Weight 130 lb 01/15/2021 11:18am BP Systolic 118 mmHg BP Diastolic 72 mmHg Height 66.5 inches 5'6.50" Weight 184.25 lb BMI (Body Mass Index) 29.3 kg/m2 Heart Rate 78 /min Respiratory Rate 18 /min Body Temperature 98.1 F O2 % BldC Oximetry 98 % [place] Body Weight 130 lb Results Test Acquired Date Facility Test Result H/L Range Note Basic Metabolic Profile 03/26/2021 [facility] Outpatient T esting (Registration) [address] [place] [id number] [phone] Glucose, Fasting 115 mg/dL High 70-100 Blood [...] 8-16 Calcium Level 8.1 mg/dL Low 8.5-10.1 Complete Blood Count 03/26/2021 [facility] Outpatient Test ing (Registration) [address] [place] [address] [phone] White Blood Count 16.8 10 High 4.0-10.0 [...] Blood Cell % 0.0 % Normal 0-0 Coronavirus 2019 Nasopharygeal 03/20/2021 [facility] Outpa tient Testing (Registration) [address] [place] [address] [phone] Coronavirus 2019 Nasopharygeal ASSAY INFORMATIO <SEE N OTE> 2 CBC With Differential 03/20/[address] [address] [phone] White Blood Count 5.2 10 Normal 4.0-10.0 [...] 36.0-66.0 Lymph % 39.7 % Normal 24.0-44.0 Mcculloch % 11.3 % High 2.0-8.0 Eos % 1.5 % Normal 0.0-3.0 Baso % 1.1 % High 0.0-1.0 Immature Granulocyte % 0.2 % Normal 0-3.0 Nucleated Red Blood Cell % 0.0 % Normal 0-0 Neutrophils # 2.4 10 Normal 1.5-8.5 Lymph # 2.1 10 Normal 1.5-5.0 Mcculloch # 0.6 10 Normal 0.0-0.8 Eos # 0.1 10 Normal 0.0-0.5 Baso # 0.1 10 Normal 0.0-0.2 Comprehensive Metabolic Profil 03/20/[address] [address] [phone] Glucose, Fasting 83 mg/dL Normal 70-100 Blood Urea Nitrogen 15 mg/dL Normal 7-18 Creatinine For GFR 1.01 mg/dL Normal 0.55-1.30 Glomerular Filtration Rate > 60.0 Normal >60 3 Sodium Level 139 mEq/L Normal 136-145 Potassium [...] Low 1.2-2.2 Ua W/Culture If Indicated 01/19/2021 [facility] [place] [address] [phone] Color Ur YELLOW 4 Appearance Ur CLEAR Clear pH [...] EKG see report Laboratory test finding 01/15/[address] [address] [phone] Troponin I < 0.02 NG/ML Normal < 0.10 5 PT & Aptt 01/15/2021 [facility] nter [address] [place] [address] [phone] Prothrombin Time 13.2 seconds Normal 12.7-14.5 Inr 0.96 Normal 6 Partial Thromboplastin Time 29.2 seconds Normal 25.9-37.0 Laboratory test finding 01/15/[address] [address] [phone] D-Dimer Quant 361.67 ng/ml Normal <500 Comprehensive Metabolic Profil 01/15/[address] [id number] [phone] Glucose, Fasting 95 mg/dL Normal 70-100 Blood Urea Nitrogen 12 mg/dL Normal 7-18 Creatinine For GFR 0.88 mg/dL Normal 0.55-1.30 Glomerular Filtration Rate > 60.0 Normal >60 7 Sodium Level 139 mEq/L Normal 136-145 Potassium [...] 1.1 Low 1.2-2.2 CBC With Differential 01/15/2021 [facility] [address] [place] [address] [phone] White Blood Count 7.9 10 Normal 4.0-10.0 [...] 36.0-66.0 Lymph % 27.6 % Normal 24.0-44.0 Mcculloch % 9.6 % High 2.0-8.0 Eos % 1.8 % Normal 0.0-3.0 Baso % 1.3 % High 0.0-1.0 Immature Granulocyte % 0.4 % Normal 0-3.0 Nucleated Red Blood Cell % 0.0 % Normal 0-0 Neutrophils # 4.7 10 Normal 1.5-8.5 Lymph # 2.2 10 Normal 1.5-5.0 Mcculloch # 0.8 10 Normal 0.0-0.8 Eos # 0.1 10 Normal 0.0-0.5 Baso # 0.1 10 Normal 0.0-0.2 Ua dipstick Pnl Ur Strip.auto 12/24/2020 [facility] [place] [address] [phone] Color Ur DARK YELLOW 8 Appearance Ur CLEAR Clear pH Ur Strip 6.5 5-8 Sp Gr Ur Refractometry 1.005 1.005-1.030 Leukocyte esterase Ur Ql Strip SMALL Abnormal Negative 9 Nitrite Ur Ql Strip POSITIVE High Negative 10 Prot Ur Ql Strip NEGATIVE Negative Glucose Ur Strip.auto-mCnc NEGATIVE Negative Ketones Ur Ql Strip NEGATIVE Negative Urobilinogen Ur Ql 1 EU/dl 0.2-1 Eu/dl Bilirub Ur Ql Strip.auto NEGATIVE Negative RBC # Ur Strip NEGATIVE Negative Urine Microscopic? (Cif) Microscopic Adde <SEE NOTE> 11 Add On Microscopic 12/24/2020 [place] [address] [phone] WBC # Ur Manual 8-12 UCUM High 0-5 Cells UrnS Micro OCCASIONAL Bacteria UrnS Ql Micro SMALL AMOUNT High Negative Culture Urine 12/24/2020 [place] [address] [phone] Urine culture result Gram neg bacilli <SEE NOTE> 12 Bacteria Ur Cult ESCHERICHIA COLI 13 Rentz count Less than 10,000 14 Gram Negative Panle 4 12/24/2020 [place] [address] [phone] Trimethoprim/Sulfamethoxazole <2/38 Susceptible Amoxicillin+Clavulanate [Susceptibility] by Minimum [...] Little GFR Left ESRD GFR <15 on [employer] 2 ASSAY INFORMATION: Real Time RT-PCR NOTE: The COVID-19 assay has been cleared by the U.S. Food and Drug Administration under the Emergency Use Authorization (EUA). [facility] are designated as high complexity laboratories by the Clinical Laboratory Improvement Amendments of 1988(CLIA) and are qualified to perform this test. Not Detected 3 Units are mL/min/1.73 m2 Chronic Kidney Disease Staging per NKF: Stage I & II GFR >=60 Normal to Mildly Decreased Stage III GFR 30-59 Moderately Decreased Stage IV GFR 15-29 Severely Decreased Stage V GFR <15 Very Little GFR Left ESRD GFR <15 on [employer]OPER 4 Z11.3 5 Troponin I Reference Interva l for [facility] LOCI: 99th Percentile= 0.00-0.045 ng/ml Risk Stratification: <= 0.10 ng/ml Decreased Risk for Adverse Clinical Events. 0.10-1.50 ng/ml Increased Risk for Adv erse Clinical Events. Evaluation of additional criterion and/or repeat testing in 2-6 hours is suggested to rule out myocardial damage. >= 1.50 ng/ml Indicative of Myocardial Injury. 6 THERAPUTIC HUMAN INR VALUES INDICATIONS NORMAL RANGES PROPHYLAXIS/TREATMENT OF: VENOUS THROMBOSIS 2.0-3.0 PULMONARY EMBOLISM 2.0-3.0 PREVENTION OF SYSTEMIC EMBOLISM FROM: TISSUE HEART VALVES 2.0-3.0 ACUTE MYOCARDIAL INFARCTION 2.0-3.0 VALVULAR HEART DISEASE 2.0-3.0 ATRIAL FIBRILLATION 2.0-3.0 MECHANICAL VALVES(HIGH RISK) 2.5-3.5 RECURRENT MYOCARDIAL INFARCTION 2.5-3.5 7 Units are mL/min/1.73 m2 Chronic Kidney Disease Staging per NKF: Stage I & II GFR >=60 Normal to Mildly Decreased Stage III GFR 30-59 Moderately Decreased Stage IV GFR 15-29 Severely Decreased Stage V GFR <15 Very Little GFR Left ESRD GFR <15 on [employer]OPER 8 N39.0,R30.0 9 A Culture has been added to this specimen per established criteria 10 A Culture has been added to this specimen per established criteria 11 Microscopic Added 12 Gram neg bacilli results to follow 13 GRAM NEGATIVE NATE 14 Less than 10,000 Procedures Date Code Description Status 03/05/2021 37495 Office/Outpatient Established Lo w MDM 20-29 Min Completed 01/15/2021 43446 Office/Outpatient Established Mo d MDM 30-39 Min Completed 01/15/2021 93851 Electrocardiogram Complete Compl eted Medical Devices Description No Information Available Encounters Type Date Location Provider Dx Diagnosis Office Visit 03/05/2021 9:30a [facility] GURDEEP Draper Z01.818 Encounter for other preproce dural examination N62 Hypertrophy of breast K21.00 Gastro-esophageal reflux dis with esophagitis, without bleed Office Visit 01/15/2021 11:30a [facility] GURDEEP Draper R09.1 Pleurisy Assessments Date Code Description Provider 03/05/2021 Z01.818 Encounter for other preprocedura l examination GURDEEP Draper 03/05/2021 N62 Hypertrophy of breast GURDEEP Morgna 03/05/2021 K21.00 Gastro-esophageal re flux disease with esophagitis, without bleeding GURDEEP Draper 01/15/2021 R09.1 Pleurisy GURDEEP Draper Plan of Treatment Future Appointment(s):* 07/23/2021 10:00 am - GURDEEP Draper at [facility] Functional Status Description No Information Available Mental Status Description No Information Available Referrals Description No Information Available
--- OUTSIDE RECORDS SUMMARY | 2021-04-19 08:05 | CCD ---
Author Author [facility] Organization [facility] Address Unknown Phone Unavailable Care Team Providers Care Instrumentation And Control Technician Name Role Phone Miladis REESE MD Unavailable Unavailable Miladis REESE MD Unavailable Unavailable Miladis REESE MD Unavailable Unavailable Miladis REESE MD Unavailable Unavailable Miladis REESE MD Unavailable Unavailable Miladis REESE MD Unavailable Unavailable ANIKET-STEVAN, LIAT DO Unavailable Unavailable [...] No Family Unavailable U navailable O'tadeo, A Seng PA Unavailable Unavailable O'tadeo, A Seng PA Unavailable Unavailable O'tadeo, A Seng PA Unavailable Unavailable O'tadeo, A Seng PA Unavailable Unavailable O'tadeo, A Seng PA Unavailable Unavailable O'tadeo, A Seng PA Unavailable Unavailable O'tadeo, A Seng PA Unavailable Unavailable O'tadeo, A Seng PA Unavailable Unavailable O'tadeo, A Seng PA Unavailable Unavailable O'tadeo, A Seng PA Unavailable Unavailable O'atdeo, A Seng PA Unavailable Unavailable O'tadeo, A Seng PA Unavailable Unavailable O'tadeo, A Seng PA Unavailable Unavailable O'tadeo, A Seng PA Unavailable Unavailable O'tadeo, A Seng PA Unavailable Unavailable O'tadeo, A Seng PA Unavailable Unavailable O'tadeo, A Seng PA Unavailable Unavailable O'tadeo, A Seng PA Unavailable Unavailable O'tadeo, A Seng PA Unavailable Unavailable O'tadeo, A Seng PA Unavailable Unavailable O'tadeo, A Seng PA Unavailable Unavailable O'tadeo, A Seng PA Unavailable Unavailable O'tadeo, A Seng PA Unavailable Unavailable O'tadeo, A Seng PA Unavailable Unavailable O'tadeo, A Seng PA Unavailable Unavailable O'tadeo, A Seng PA Unavailable Unavailable O'tadeo, A Seng PA Unavailable Unavailable O'tadeo, A Seng PA Unavailable Unavailable O'tadeo, A Seng PA Unavailable Unavailable O'tadeo, A Seng PA Unavailable Unavailable O'tadeo, A Seng PA Unavailable Unavailable O'tadeo, A Seng PA Unavailable Unavailable O'tadeo, A Seng PA Unavailable Unavailable Letha Lemus MD Unavailable Unavailable REGINA, E PAT DO Unavailable Unavailable REGINA, E PAT DO Unavailable Unavailable REGINA, E PAT DO Unavailable Unavailable REGINA, E PAT DO Unavailable Unavailable REGINA, E PAT DO Unavailable Unavailable REGINA, E PAT DO Unavailable Unavailable REGINA, E PAT DO Unavailable Unavailable REGINA, E PAT DO Unavailable Unavailable REGINA, E PAT DO Unavailable Unavailable REGINA, E PAT DO Unavailable Unavailable REGINA, E PAT DO Unavailable Unavailable REGINA, E PAT DO Unavailable Unavailable REGINA, E PAT DO Unavailable Unavailable REGINA, E PAT DO Unavailable Unavailable REGINA, E PAT DO Unavailable Unavailable REGINA, E PAT DO Unavailable Unavailable REGINA, E PAT DO Unavailable Unavailable REGINA, E PAT DO Unavailable Unavailable REGINA, E PAT DO Unavailable Unavailable REGINA, E PAT DO Unavailable Unavailable REGINA, E PAT DO Unavailable Unavailable REGINA, E PAT DO Unavailable Unavailable Roberta, R Jack MD Unavailable [...] Unavailable of L.C., Medicine Occupation Unavailable Unavailable CoolidgeEnrique boateng MD Unavailable Unavailable Re-disclosure Warning The records [...] is protected by Article 27-F of the [facility] Public Health law. If you continue you may have access to information: Regarding HIV / AIDS; Provided by facilities licensed or operated by the [facility] Office of Mental Health; or Provided by the [facility] Office for People With Developmental Disabilities. If such information is present, then the following [facility] mandated warning applies: This information has been [...] law may result in a fine or correction sentence or both. A general authorization for the release of medical or other information is NOT sufficient authorization for further disc losure. Allergies and Adverse Reactions Type Description Substance Reaction Status Data Source(s ) Drug allergy No Known Drug Allergies No Known Drug Allergies [facility] Food allergy No Known Food Allergies No Known Food Allergies [facility] Family History Family Member Name Family Member Gender Family Member Status Date o f Status Description Data Source(s) Unknown Condition [facility] Unknown Condition [facility] Unknown Condition [facility] Unknown Unknown Problem [facility] ([facility], [facility]) Encounters Encounter Providers Location Date Indications Data Source(s ) Emergency Attender: SENG REESE MD 03/13 08:51:00 AM EDT - 04/04/2021 12:13:00 PM EDT COUGH,HEADACH,STUFFY NOSE [facility] l COUGH,HEADACH,STUFFY NOSE Patient discharged. Office Visit Attender: PAT Richard/Mikayla/Joseph/Frantz lindsey 03/31/2021 10:15:00 AM EDT [facility] ([facility]) Outpatient Attender: Seng MACKENZIE [facility] 03/05/2021 09:30:00 AM EDT [facility] ([facility]) Outpatient Attender: Wei Salgado MD 01/19/2021 04:30: 00 PM EDT Z11.3 [facility] Z11.3 Outpatient Attender: Wei Salgado MDReferrer: No Family Doctor Provided 01/19/2021 03:11:00 PM EDT - 01/19/2021 04:18:00 PM EDT [facility] Outpatient Attender: Seng MACKENZIE [facility] 01/15/2021 11:30:00 AM EDT [facility] ([facility]) Outpatient Attender: Wei Salgado MD 12/24/2020 09:41:00 AM EDT N39.0,R30.0 [facility] N39.0,R30.0 Outpatient Attender: Wei Salgado MDReferrer: LIAT MORALES DO 12/16/2020 09:45:00 AM EDT - 12/16/2020 10:47:00 AM EDT [facility] Outpatient Attender: Letha Lemus MDReferrer: Jack Granados MD 10/27/2020 02:22:00 PM EDT - 10/27/2020 03:16:00 PM EDT [facility] Outpatient Attender: Letha Lemus MD 10/19/2020 1 2:51:00 PM EDT LEFT ARMPIT/BREAST ; LUMP [facility] LEFT ARMPIT/BREAST ; LUMP Outpatient Attender: Letha Lemus MD 10/16/2020 04:43:0 0 PM EDT [facility] Outpatient Attender: Letha Lemus MDReferrer: Jack Granados MD 10/16/2020 01:43:00 PM EDT - 10/16/2020 02:37:00 PM EDT [facility] Outpatient Attender: [facility] 08/26/2020 10:57:0 0 AM EDT COLLECTION [facility] COLLECTION Outpatient Attender: Jack Granados MD 08/26/2020 10:44:00 AM EDT [facility] Outpatient Attender: Pio Caceres/Mikayla/Joseph/Re indl 03/20/2020 01:15:00 PM EDT [facility] ([facility] Outpatient Attender: Sneg MACKENZIE [facility] 02/18/2020 09:20:00 AM EDT [facility] ([facility]) Medications Medication Brand Name Start Date Product Form Dose Route Admi nistrative Instructions Pharmacy Instructions Status Indications Reaction Description Data Source(s) NITROFURANTOIN, MACROCRYSTALS 25 MG / Ni trofurantoin, Monohydrate 75 MG Oral Capsule Nitrofurantoin Monohyd/M-Cryst (Macrobid) 100 mg capsule Nitrofurantoin Monohyd/M-Cryst (Macrobid) 100 mg capsule 12/27/2020 05:42:43 PM EDT 100 MG completed [facility] doxycycline hyclate 100 MG Oral Capsule Doxycycline Hyclate Doxycycline Hyclate 10/28/2020 05:31:17 PM EDT 100 MG completed [facility] Levonorgestrel Levonorgestrel (Kyleena) 17.5 mcg/24 hrs (5 yrs) 19.5 mg intrauterine device Levonorgestrel (Kyleena) 17.5 mcg/24 hrs (5 yrs) 19.5 mg intrauterine device 10/27/2020 03:18:04 PM EDT 1 device completed [facility] Azithromycin 10/19/2020 11:44:59 AM EDT 1000 MG co mpleted [facility] Desogestrel-Ethinyl Estradiol (Enskyce) 0.15-0.03 mg tablet 10/16/2020 02:07:23 PM EDT 1 TAB completed [facility] Dicyclomine Hydrochloride 10 MG Oral Capsule Dicyclomine 10/16/2020 02:06:40 PM EDT 10 MG active [facility] Amitriptyline Hydrochloride 25 MG Oral Tablet Amitriptyline 10/16/2020 02:05:50 PM EDT 12.5 MG active [facility] Esomeprazole 20 MG Delayed Release Oral Capsule Esomeprazole Magnesium (Nexium) 20 mg capsule,delayed release(DR/EC) Esomeprazole Magnesium (Nexium) 20 mg capsule,delayed release(DR/EC) 10/16/2020 02:05:33 PM EDT 20 MG active [facility] Purified Protein Derivative of Tuberculi n 50 UNT/ML Injectable Solution tuberculin PPD tuberculin PPD 08/26/2020 10:44:36 AM EDT 0.1 ML completed [facility] Purified Protein Derivative of Tuberculi n 50 UNT/ML Injectable Solution tuberculin PPD tuberculin PPD 08/26/2020 10:44:36 AM EDT 0.1 ML completed [facility] 20 mg 02/26/2020 12:00:00 AM EDT capsule,delayed release (DR/EC) 30 TAKE ONE CAPSULE BY MOUTH EVERY DAY TAKE ONE CAPSULE BY MOUTH EVERY DAY SOLD: 02/26/2020 [facility] Esomeprazole 20 MG Delayed Release Oral Capsule ESOMEPRAZOLE MAGNESIUM 02/26/2020 12:00:00 AM EDT capsule,delayed release(DR/EC) 30 TAKE ONE CAPSULE BY MOUTH EVERY DAY TAKE ONE CAPSULE BY MOUTH EVERY DAY SOLD: 05/20/2020 [facility] Isibloom 28 Day Pack 0.15-0.03 mg DESOGESTREL-ETHINYL ESTRAD IOL 02/18/2020 12:00:00 AM EDT tablet 84 TAKE ONE TABLET BY MOUTH EVERY DAY TAKE ONE TABLET BY MOUTH EVERY DAY SOLD: 02/26/2020 [facility] Insurance Providers Payer name Policy type / Coverage type Policy ID Covered alliance party ID Covered alliance party's relationship to delgado Policy Delgado Plan Information [place] 306/806 [id number] MO2 [id number] [employer] 306/806 [id number] MO2 [id number] [place] 306/806 [id number] MO2 [id number] [employer] BC/BS Commercial [id number] Family Dependent [employer] BC/BS Commercial [id number] [employer] BC/BS Commercial [id number] Family Dependent [employer] BC/BS Commercial [id number] Family Dependent [employer] Workers Compensation [id number] Self [id number] [employer] Workers Compensation [id number] Self [id number] ANSI-Commercial [id number] ANSI-Commercial [id number] [employer]BS [place] PPO 302/307 [id number] [id number] ANSI-Commercial [id number] BCBS/[employer] Commercial [id number] Family Dependent [id number] [employer] Commercial [id number] Family Dependent [id number] [employer] Commercial [id number] Family Dependent [id number] [employer] Commercial [id number] Family Dependent [id number] R [facility] [id number] MO2 [id number] BS/W/Id#Prefix/W ALL #'S Commercial [id number] Family Depende nt [place] [id number] V R O [id number] C [id number] SELF PAY ONLY R [facility] [id number] MO2 [id number] MEDICAID [id number] FA2 [id number] ANSI-Medicaid [id number] ANSI-Commercial [id number] ANSI-Commercial [id number] Problems, Conditions, and Diagnoses No Information Surgeries/Procedures Procedure Description Date Indications Data Source(s) REDUCTION MAMMAPLASTY 03/25/2021 12:00:00 [facility] I & D Abscess/Hematoma Neck/Thorax Soft Tissue 021 12:00:00 AM EDT [facility] ([facility], ) OFFICE OUTPATIENT VISIT 15 MINUTES 03/05/2021 12:00:00 AM EDT [facility] ([facility]) Electro[facility]ogram [facility] OUTPATIENT VISIT 25 MINUTES 01/15/2021 12:00:00 AM EDT [facility] ([facility]) Urine culture (procedure) 12/24/2020 12:00:00 AM [facility] Ultrasonography of breast (procedure) 10/19/2020 01:12 :00 PM [facility] Urine culture (procedure) 10/16/2020 12:00:00 AM [facility] Chlamydia/Neisseria (PCR) 10/16/2020 12:00:00 AM [facility] Results ID Date Data Source [id number] 04/04/2021 10:52:00 AM [facility] [address] [place] [address] [phone] NAME SEX PT STATUS ACCOUNT NUMBER LUIS MCCARTHY Tanya Wallace [facility] [id number] ORDERING PHYSICIAN LOCATION MEDICAL RECORD NO. Seng Reese MD ER [id number] ATTENDING PHYSICIAN DATE OF DATE OF EXAM/TIME Liat Schneider DO 1995 04/04/211007 TYPE / EXAM Xray Chest One View REASON FOR EXAM productive cough Clinical History/Indication for Exam: productive cough RADIOGRAPH OF THE CHEST 1 VIEW INDICATION: productive cough COMPARISON: None submitted. FINDINGS: Lungs: Unremarkable. No consolidation. Pleural space: Unremarkable. No pneumothorax. Heart: Unremarkable. No cardiomegaly. Mediastinum: Unremarkable. Bones/joints: Unremarkable. IMPRESSION: Normal chest x-ray. REPORT SIGNATURE ON FILE 04/04/2021 (10:52 Eastern Time ) Signed by: Ramses Benedict M.D. Reported By Ramses Benedict MD on 04/04/211051 Signed By Ramses Benedict MD on 04/04/211051 Date Time CC: Ramses Benedict MD; Liat Schneider DO Techn: FROSA Trans Dt/Tm: Trans by: DT Prt Dt/Tm: [id number]: Total DLP = 0.00 mGy-cm Fluoroscopy Time (in secs): Name Value Range Interpretation Code Description Data Susan rce(s) Supporting Document(s) ID Date Data Source [id number] 04/04/2021 09:54:00 AM EDT [facility] Name Value Range Interpretation Code Description Data Susan rce(s) Supporting Document(s) Leukocytes [#/volume] in Blood by Automated count 10.3 10*3/uL 4.45-1 0.71 [facility] Erythrocytes [#/volume] in Blood by Automated count 3.41 10*6/uL 4.20-5.40 Below low normal [facility] Hemoglobin [Moles/volume] in Blood 9.9 g/dL 10.7-15.4 Below low no rmal [facility] Hematocrit [Volume Fraction] of Blood by Automated count 30.6 % 37-47 Below low normal [facility] Erythrocyte mean corpuscular volume [Ent itic volume] in Cord blood by Automated count 90 fL 80-96 N [facility] ital Erythrocyte mean corpuscular hemoglobin [Entitic mass] by Au tomated count 29 pg 27-31 [facility] Erythrocyte mean corpuscular hemoglobin concentration [Mass/volume] in Cord blood 32 g/dL 33-37 Below low normal [facility] Erythrocyte distribution width [Entitic volume] by Automated count 13 % 11-15 N [facility] Platelets [#/volume] in Blood by Automated count 280 10*3/uL 130-472 N [facility] Platelet mean volume [Entitic volume] in Blood 8.7 fL 9.1-13. 1 Below low normal [facility] Neutrophils/100 leukocytes in Blood by Automated count 79.6 % 41-77 Above high normal [facility] Neutrophils [#/volume] in Blood by Automated count 8.2 U 1.7-7.6 Above high normal [facility] Lymphocytes/100 leukocytes in Blood by Automated count 11.3 % 14-46 Below low normal [facility] Lymphocytes [#/volume] in Blood by Automated count 1.2 U 0.6-4.6 N [facility] Monocytes/100 leukocytes in Blood by Automated count 8.6 % 4-12 N [facility] Monocytes [#/volume] in Blood by Automated count 0.9 U 0.2-1.2 N [facility] Eosinophils/100 leukocytes in Blood by Automated count 0.1 % 0-7 N [facility] Eosinophils [#/volume] in Blood by Automated count 0.0 U 0.0-0.5 N [facility] Basophils/100 leukocytes in Blood by Automated count 0.2 % 0.4-1.3 Below low normal [facility] Basophils [#/volume] in Blood by Automated count 0.0 U 0.0-0.2 N [facility] NUCLEATED RED BLOOD CELL 0 % [facility] NUCLEATED RED BLOOD CELL# 0 U [facility] Immature granulocytes [Presence] in Blood by Automated count 0-2 N [facility] Immature granulocytes [#/volume] in Blood by Automated count 0.0 U 0-0.1 N [facility] Manual Differential panel - Blood NO [facility] ID Date Data Source [id number] 04/04/2021 10:18:00 AM EDT [facility] Name Value Range Interpretation Code Description Data Susan rce(s) Supporting Document(s) Urea nitrogen [Mass/volume] in Serum or Plasma 7 mg/dL 9-23 Below low normal [facility] Sodium [Moles/volume] in Serum or Plasma 138 mmol/L 132-146 N [facility] Potassium [Moles/volume] in Serum or Plasma 3.6 mmol/L 3.5-5.5 N [facility] Chloride [Moles/volume] in Serum or Plasma 106 mmol/L 99-109 N [facility] Carbon dioxide, total [Moles/volume] in Serum or Plasma 25 mmol/L 20 -31 N [facility] Anion gap in Serum or Plasma 11 mmol/L 8-16 N [facility] Glucose [Mass/volume] in Serum or Plasma 98 mg/dL 74-106 N [facility] Creatinine 0.8 mg/dL 0.5-1.1 N [facility] Glomerular filtration rate/1.73 sq M.pre dicted [Volume Rate/Area] in Serum or Plasma Greater Than 60 ABOVE 60 [facility] Alanine aminotransferase [Enzymatic acti vity/volume] in Serum or Plasma by With P-5'-P 40 U/L 10-49 [facility] ital Aspartate aminotransferase [Enzymatic ac tivity/volume] in Serum or Plasma by With P-5'-P 20 U/L 0-33 [facility] pital Alkaline phosphatase [Enzymatic activity/volume] in Serum or Plasma 91 U/L 45-129 N [facility] Calcium [Mass/volume] in Serum or Plasma 8.8 mg/dL 8.5-10.1 [facility] Bilirubin.total [Mass/volume] in Serum or Plasma 0.3 mg/dL 0.3-1.2 [facility] Albumin [Mass/volume] in Serum or Plasma by Bromocresol purple (BCP) dye binding method 3.4 g/dL 3.2-4.8 [facility] ital Protein [Mass/volume] in Serum or Plasma 7.6 g/dL 5.7-8.2 [facility] ID Date Data Source [id number] 04/04/2021 10:30:00 AM EDT [facility] Name Value Range Interpretation Code Description Data Susan rce(s) Supporting Document(s) Prothrombin Time (Patient) 10.9 s 9.6-12.[address] [facility] INR 1.0 0.9-1.1 [facility] THE INR IS OPERATIONALLY DEFINED FOR KENDRA SH PLASMA FROMPATIENTS STABILIZED ON ORAL ANTICOAGULANTS.ROUTINE ANTICOAGULANT THERAPY 2.0-3.0RECURRENT SYSTEMIC EMBOLISM/HEART VALVE REPLACEMENT 2.5-3.5 aPTT.lupus sensitive (LA screen) 29.9 s 22.7-31.6 N [facility] ID Date Data Source [id number] 04/04/2021 09:49:00 AM EDT [facility] ([facility]) Name Value Range Interpretation Code Description Data Susan rce(s) Supporting Document(s) Leukocytes [#/volume] in Blood by Automated count 10.3 10*3/uL 4.45-10.71 Normal (applies to non-numeric results) [facility] ([facility]) COUGH,HEADACH,STUFFY NOSE Hemoglobin [Moles/volume] in Blood 9.9 g/dL 10.7-15.4 Below low no rmal [facility] ([facility]) COUGH,HEADACH,STUFFY NOSE Erythrocytes [#/volume] in Blood by Automated count 3.41 10*6/uL 4.20-5.40 Below low normal [facility] ([facility]) COUGH,HEADACH,STUFFY NOSE Hematocrit [Volume Fraction] of Blood by Automated count 30.6 % 37-47 Below low normal [facility] ([facility]) COUGH,HEADACH,STUFFY NOSE Erythrocyte mean corpuscular hemoglobin [Entitic mass] by Au tomated count 29 pg 27-31 Normal (applies to non-numeric results) [facility] ([facility]) COUGH,HEADACH,STUFFY NOSE Erythrocyte mean corpuscular volume [Ent itic volume] in Cord blood by Automated count 90 fL 80-96 Normal (applies to non-numeric results) [facility] ([facility]) COUGH,HEADACH,STUFFY NOSE Erythrocyte distribution width [Entitic volume] by Automated cou nt 13 % 11-15 Normal (applies to non-numeric results) [facility] ([facility]) COUGH,HEADACH,STUFFY NOSE Erythrocyte mean corpuscular hemoglobin concentration [Mass/volume] in Cord blood 32 g/dL 33-37 Below low normal [facility] ([facility]) COUGH,HEADACH,STUFFY NOSE Neutrophils/100 leukocytes in Blood by Automated count 79.6 % 41-77 Above high normal [facility] ([facility]) COUGH,HEADACH,STUFFY NOSE Platelet mean volume [Entitic volume] in Blood 8.7 fL 9.1-13. 1 Below low normal [facility] ([facility]) COUGH,HEADACH,STUFFY NOSE Platelets [#/volume] in Blood by Automated count 280 10*3/uL 130-472 Normal (applies to non-numeric results) [facility] ([facility]) COUGH,HEADACH,STUFFY NOSE Neutrophils [#/volume] in Blood by Automated count 8.2 U 1.7-7.6 Above high normal [facility] ([facility]) COUGH,HEADACH,STUFFY NOSE Lymphocytes/100 leukocytes in Blood by Automated count 11.3 % 14-46 Below low normal [facility] ([facility]) COUGH,HEADACH,STUFFY NOSE Lymphocytes [#/volume] in Blood by Automated count 1.2 U 0.6-4.6 Normal (applies to non-numeric results) [facility] ([facility]) COUGH,HEADACH,STUFFY NOSE Monocytes [#/volume] in Blood by Automated count 0.9 U 0.2-1.2 Normal (applies to non-numeric results) [facility] ([facility]) COUGH,HEADACH,STUFFY NOSE Eosinophils/100 leukocytes in Blood by Automated count 0.1 % 0-7 Normal (applies to non-numeric results) [facility] ([facility]) COUGH,HEADACH,STUFFY NOSE Monocytes/100 leukocytes in Blood by Automated count 8.6 % 4-12 Normal (applies to non-numeric results) [facility] ([facility]) COUGH,HEADACH,STUFFY NOSE Eosinophils [#/volume] in Blood by Automated count 0.0 U 0.0-0.5 Normal (applies to non-numeric results) [facility] ([facility]) COUGH,HEADACH,STUFFY NOSE Basophils/100 leukocytes in Blood by Automated count 0.2 % 0.4-1.3 Below low normal [facility] ([facility]) COUGH,HEADACH,STUFFY NOSE Nucleated Red Blood Cell 0 % [facility] ([facility]) COUGH,HEADACH,STUFFY NOSE Basophils [#/volume] in Blood by Automated count 0.0 U 0.0-0.2 Normal (applies to non-numeric results) [facility] ([facility]) COUGH,HEADACH,STUFFY NOSE Immature granulocytes [Presence] in Blood by Automated count 0.2 0-2 Normal (applies to non-numeric results) [facility] COUGH,HEADACH,STUFFY NOSE Laboratory test finding (navigational concept) 0 U [facility] COUGH,HEADACH,STUFFY NOSE Immature granulocytes [#/volume] in Blood by Automated count 0.0 U 0-0.1 Normal (applies to non-numeric results) [facility] COUGH,HEADACH,STUFFY NOSE Manual Differential panel - Blood Laboratory test result [facility] ([facility]) COUGH,HEADACH,STUFFY NOSE ID Date Data Source [id number] 04/04/2021 09:49:00 AM EDT [facility]) Name Value Range Interpretation Code Description Data Susan rce(s) Supporting Document(s) Laboratory test finding (navigational concept) 10.9 s 9 .6-12.3 Normal (applies to non-numeric results) [facility] COUGH,HEADACH,STUFFY NOSE aPTT.lupus sensitive (LA screen) 29.9 s 22.7-31.6 Normal (applies to non-numeric results) [facility] COUGH,HEADACH,STUFFY NOSE Inr 1.0 0.9-1.1 Normal (applies to non-numeric resul ts) [facility] COUGH,HEADACH,STUFFY NOSE ID Date Data Source [id number] 04/04/2021 09:49:00 AM EDT [facility] ([facility]) Name Value Range Interpretation Code Description Data Susan rce(s) Supporting Document(s) Urea nitrogen [Mass/volume] in Serum or Plasma 7 mg/dL 9-23 Below low normal [facility] ([facility]) COUGH,HEADACH,STUFFY NOSE Sodium [Moles/volume] in Serum or Plasma 138 mmol/L 132-146 Normal (applies to non-numeric results) [facility] ([facility]) COUGH,HEADACH,STUFFY NOSE Potassium [Moles/volume] in Serum or Plasma 3.6 mmol/L 3.5- 5.5 Normal (applies to non-numeric results) [facility] ([facility]) COUGH,HEADACH,STUFFY NOSE Chloride [Moles/volume] in Serum or Plasma 106 mmol/L 99-10 9 Normal (applies to non-numeric results) [facility] ([facility]) COUGH,HEADACH,STUFFY NOSE Carbon dioxide, total [Moles/volume] in Serum or Plasma 25 mmol/ L 20-31 Normal (applies to non-numeric results) [facility] ([facility]) COUGH,HEADACH,STUFFY NOSE Anion gap in Serum or Plasma 11 mmol/L 8-16 Nor mal (applies to non-numeric results) [facility] ([facility]) COUGH,HEADACH,STUFFY NOSE Glucose [Mass/volume] in Serum or Plasma 98 mg/dL 74-106 Normal (applies to non- numeric results) [facility] ([facility]) COUGH,HEADACH,STUFFY NOSE Creatinine 0.8 mg/dL 0.5-1.1 Normal (applies to non-numeric resul ts) [facility] ([facility]) COUGH,HEADACH,STUFFY NOSE Glomerular filtration rate/1.73 sq M.pre dicted [Volume Rate/Area] in Serum or Plasma Laboratory test result [facility] ([facility]) COUGH,HEADACH,STUFFY NOSE Alanine aminotransferase [Enzymatic acti vity/volume] in Serum or Plasma by With P-5'-P 40 U/L 10-49 Normal (applies to non-numeric results) [facility] ([facility]) COUGH,HEADACH,STUFFY NOSE Alkaline phosphatase [Enzymatic activity/volume] in Serum or Plasma 91 U/L 45-129 Normal (applies to non-numeric results) [facility] ([facility]) COUGH,HEADACH,STUFFY NOSE Aspartate aminotransferase [Enzymatic ac tivity/volume] in Serum or Plasma by With P-5'-P 20 U/L 0-33 Normal (applies to non-numeric results) [facility] ([facility]) COUGH,HEADACH,STUFFY NOSE Calcium [Mass/volume] in Serum or Plasma 8.8 mg/dL 8.5-10. 1 Normal (applies to non-numeric results) [facility] ([facility]) COUGH,HEADACH,STUFFY NOSE Albumin [Mass/volume] in Serum or Plasma by Bromocresol purple (BCP) dye binding method 3.4 g/dL 3.2-4.8 Normal (applies to non-numeric results) [facility] ([facility]) COUGH,HEADACH,STUFFY NOSE Bilirubin.total [Mass/volume] in Serum or Plasma 0.3 mg/dL 0.3-1.2 Normal (applies to non-numeric results) [facility] ([facility]) COUGH,HEADACH,STUFFY NOSE Protein [Mass/volume] in Serum or Plasma 7.6 g/dL 5.7-8.2 Normal (applies to non-numeric results) [facility] ([facility]) COUGH,HEADACH,STUFFY NOSE ID Date Data Source [id number] 04/04/2021 09:33:00 AM EDT [facility] ED Physician Documentation NAME: LUIS MCCARTHY : 1995 AGE: 25 MR#: [id number] SERVICE DATE: 04/04/[address]: Seng Reese MD PRIMARY CARE DR: Liat Schneider DO ROOM#: HPI (Adult, General) General Chief Complaint: Multi system (Adult) Stated Complaint: COUGH,HEADACH,STUFFY NOSE Resident [facility], travel outisde home, exposure to hot tubs:: No Time Seen by Provider: 04/04/21 09:21 Source: patient Exam Limitations: no limitations History of Present Illness Narrative: 25 yo woman with no PMHX, presents with c/o worsening cough for the past 5 days associated with fever, congestion and sore throat. She has decreased appetite but is able to drink water and has noN/V and no loss of taste or wmell. Allergies/Home Meds Allergies Allergy/AdvReac Type Severity Reaction Status Date / Time No Known Drug Allergies Allergy Unverified 10/27/20 16:46 [From No known Food or Drug Allergies] No Known Food Allergies Allergy Unverified 10/27/20 16:46 [From No known Food or Drug Allergies] Home Medications Medication Instructions Recorded Confirmed Last Taken Type amitriptyline 25 mg tablet 12.5 mg PO QDAY tab 10/16/20 10/16/20 Unknown History dicyclomine 10 mg capsule 10 mg PO .q week cap 10/16/20 10/16/20 Unknown History esomeprazole magnesium 20 mg 20 mg PO QDAY 10/16/20 10/16/20 Unknown History capsule,delayed release (Nexium) levonorgestrel (Kyleena) 1 device INTRAUTERINE ea 10/27/20 10/27/20 15:18 History nitrofurantoin 100 mg PO DAILY PRN #30 cap 01/19/21 01/19/21 Unknown Rx monohydrate/macrocrystals 100 mg capsule (Macrobid) codeine 10 mg-guaifenesin 100 mg/5 5 ml PO Q6HR PRN #237 ml 04/04/21 Unknown Rx mL oral liquid PMH (from Triage) Patient Medical History PMH Reviewed/Updated as Needed: Yes Female History : No Hx Drug Resistant Infections Hx Other Resistant Infection?: No Isolation: Standard precautions Hx Recent Travel Nurse screening for coronavirus: Recent Travel outside the No country (where) Social History Are you in a relationship with/Does anyone hit you, yell/swear at you, steal from you?: No Substance Use Second Hand Smoke Exposure: No Smoking Status: Never smoker Vaccination History Hx/Date of Tetanus, Diphtheria Vaccination: Yes Hx/Date of Influenza Vaccination: No Immunizations Up to Date: Yes PFSH Family History Grandmother Breast cancer Grandfather Leukemia Social History Does the Patient have a Healthcare Proxy: No Does Patient have a DNR?: No Does Patient have a Living Will?: No do you think of yourself as: straight/heterosexual Smokin g Status: Never smoker Female Reproductive History Menstrual Age of Menarche: 16 Duration of menses: 3-5 days control method: progestin IUCD Total pregnancies: 0 Ectopics: 0 ROS Review of Systems Constitutional: Reports fever ENT: Reports nasal discharge, nasal congestion and throat pain Respiratory: Reports cough; Denies SOB Cardiovascular: Denies chest pain Gastrointestinal: Denies nausea, vomiting, abdominal pain or diarrhea Genitourinary-Female: Denies dysuria or frequency Musculoskeletal: Reports muscle pain and joint pain Skin/Breasts: Denies rash Neurologic: Denies weakness, numbness or headache Endocrine: Reports Loss of appetite Hematological/Lymphatic: Denies swollen glands Allergic/Immunologic: Denies rash Physical Exam General Physical Exam Narrative: wd woman, awake and alert, appears fatigued, no respiratory distress Limitations: no limitations General appearance: alert and in no apparent distress Head Head exam: Present atraumatic, normocephalic and normal inspection Eye Eye exam: Present normal apperance and EOMI; Absent scleral icterus or conjunctival injection ENT ENT exam: Present mucous membranes dry Neck Neck exam: Present normal inspection and full ROM; Absent tenderness Respiratory Respiratory exam: Present rales (scattered); Absent normal lung sounds bilaterally or respiratory distress Cardiovascular Cardiovascular Exam: Present normal rhythm and tachycardia GI/Abdominal GI/Abdominal exam: Present Abd soft, bowel sounds present all quadrents; Absent tenderness Extremities Exam Extremities exam: Present normal inspection and full ROM; Absent tenderness Back Exam Back exam: Present normal inspection and full ROM; Absent tenderness Neurological Exam Neurological exam: Present alert and oriented X3; Absent motor sensory deficit Psychiatric Psychiatric exam: Present normal affect and normal mood Skin Skin exam: Present warm, dry, intact and normal color Vital Signs Vital Signs: Vital Signs 04/04/21 08:58 04/04/21 12:11 Temperature 99.7 F H 100 F H Pulse Rate 114 H 92 Respiratory Rate 18 16 Blood Pressure 131/73 124/75 O2 Sat by Pulse Oximetry 97 98 MDM (comprehensive) Lab Data Labs: 04/04/21 09:49 04/04/21 09:49 Laboratory Results Last 24 hours 04/04/21 09:49: WBC 10.3, RBC 3.41 L, Hgb 9.9 L, Hct 30.6 L, MCV 90, MCH 29, MCHC 32 L, RDW 13, Plt Count 280, MPV 8.7 L, Immature Gran % (Auto) 0.2, Neut % (Auto) 79.6 H, Lymph % (Auto) 11.3 L, [place] % (Auto) 8.6, Eos % (Auto) 0.1, Baso % (Auto) 0.2 L, Lymph # (Auto) 1.2, Abs Immat Gran (auto) 0.0, Add Manual Diff No, Absolute Neutrophils 8.2 H, Monocytes # 0.9, Absolute Eosinophils 0.0, Absolute Basophils 0.0 04/04/21 09:49: PT 10.9, INR 1.0, PTT (Bledsoe) 29.9 04/04/21 09:49: Sodium 138, Potassium 3.6, Chloride 106, Carbon Dioxide 25, Anion Gap 11, BUN 7 L, Creatinine 0.8, GFR Calculation Greater than 60, Glucose 98, Calcium 8.8, Total Bilirubin 0.3, AST 20, ALT 40, Alkaline Phosphatase 91, Serum Total Protein 7.6, Albumin 3.4 Radiology Data Radiology results: report reviewed and image reviewed Medical Decision Making Free Text/Narative:: The patient was evaluated for cough and fever. The PE was significant for normal temperature, elevated heart rate, dry mucosa and scattered rales on lung exam. O2 saturation was 97%. Labs wereunremarkable. CXR showed no infiltrate. The patient was treated with IVF and Tylenol. The COVID test is pending. Plan Plan Plan: d/c home Plan of care: Plan of care discussed with patient and or family, Patient encouraged to ask questionsabout plan and Patient agrees with plan of care Visit Medications Administered ED medications:: Medications Discontinued Medications Generic Name Dose Route Start Last Admin Trade Name Freq PRN Reason Stop Dose Admin Acetaminophen 1,000 mg 04/04/21 10:54 04/04/21 11:08 Acetaminophen 500 M g Tab PO 04/04/21 10:55 1,000 mg 1T ONE Administration Sodium Chloride 1,000 mls @ 999 mls/hr 04/04/21 09:38 04/04/21 10:59 Ns 0.9% IV 04/04/21 10:38 Infused .Q1H1M ONE Infusion Discharge Plan Admission/Discharge Dx Primary DC Diagnosis: Viral Infection ED Provider: Seng Reese ED Status: Discharged Time Seen by Provider: 04/04/21 09:21 Triaged At: 04/04/21 08:58 Condition Condition: Stable Discharge Detail Disposition: Home, Self-Care Med Rec New Prescriptions: New codeine-guaifenesin 10-100 mg/5 mL liquid 5 ml PO Q6HR PRN (Reason: cough) Qty: 237 0RF No Action esomeprazole magnesium [Nexium] 20 mg capsule,delayed release(DR/EC) 20 mg PO QDAY 0RF amitriptyline 25 mg tablet 12.5 mg PO QDAY 0RF dicyclomine 10 mg capsule 10 mg PO .q week 0RF nitrofurantoin monohyd/m-cryst [Macrobid] 100 mg capsule 100 mg PO DAILY PRN (Reason: suppressive dosing) Qty: 30 1RF Rx Instructions: must administer with a meal/food Medications Medication reconciliation performed by provider at discharge: Yes Follow Up Care/Instructions Diet/Activity/Wound Care..: continue with increased fluids, regular dosing of Tylenol or motrin, primary care follow-up, return to ER for increased symptoms. *Discharge Patient* Discharge Orders: Discharge Order (Routine); Ordered 04/04/21 Ordered By: Seng Reese Discharge Date/Time: 04/04/21 12:13 Interventions Interventions: ED Discharge Instructions Last Done: 04/04/21 12:12 ED General Adult Last Done: 04/04/21 09:20 Report Signers: <Electronically signed by Seng Reese MD> Seng Reese MD 04/04/21 1843 Seng Reese MD SIGNATURE DA Report Cosigners: D: RAUL 04/04/21932 T: RAUL 04/04/21932 CC: Liat Schneider DO Name Value Range Interpretation Code Description Data Susan rce(s) Supporting Document(s) ID Date Data Source [id number] 04/05/2021 10:42:00 AM EDT [facility] CALLED TO PH 04/05/21 MW Name Value Range Interpretation Code Description Data Susan rce(s) Supporting Document(s) COVID-19 ELAN (SARS-CoV-2) DETECTED NOT DETECTED Above high normal [facility] A Detected result indicates that the pat ient's specimenwas positive for SARS-CoV-2 RNA.Test Method: Nucleic Acid Amplification Test includingreverse waistline joiner lockstitch polymerase chain reaction (RT-PCR)and waistline joiner lockstitch mediated amplification (TMA). The testmethod meets the [place] Centers for Disease Control andprevention (CDC) pre departure and arrival requirementfor viral test for COVID-19 dated July 09, 2020.Testing requirements for traveling may change with time.The patient is responsible for determining the testrequirements for each nation while they are traveling.This test has been authorized by the FDA under anEmergency Use Authorization (EUA) for use by authorizedlaboratories.Please review the "Fact Sheets" and FDA authorizedlabeling available for health care providers andpatients using the following websites:https://www.[employer]Linki/home/Covid-19/HCP/NAAT/fact-fnuih8pisg s://www.[employer].Linki/home/Covid-19/Patients/NAAT/fact-dryee6Dpb to the current public health emergency, [employer] is accepting samples from appropriateclinical sources collected using wide variety ofswabs and transport media for COVID-19. Not detectedtest results derived from specimens received in non-commercially manufactured viral collection kits or thosenot yet authorized by FDA for COVID-19 testing should becautiously evaluated and take extra precautions such asadditional clinical monitoring, including collectionof an additional specimen.Additional information about COVID-19 can be foundat the [employer] website:www.[email or web address].THIS TEST WAS PERFORMED AT:[employer] [id number] MERATI,MD ID Date Data Source [id number] 04/05/2021 10:37:00 AM EDT [employer] [facility] Name Value Range Interpretation Code Description Data Susan rce(s) Supporting Document(s) [id number] DETECTED Abnormal (applies to non-numeric res ults) [facility] A Detected result indicates that the pat ient's specimenwas positive for SARS-CoV-2 RNA.Test Method: Nucleic Acid Amplification Test includingreverse waistline joiner lockstitch polymerase chain reaction (RT-PCR)and waistline joiner lockstitch mediated amplification (TMA). The testmethod meets the [place] Centers for Disease Control andprevention (CDC) pre departure and arrival requirementfor viral test for COVID-19 dated July 09, 2020.Testing requirements for traveling may change with time.The patient is responsible for determining the testrequirements for each nation while they are traveling.This test has been authorized by the FDA under anEmergency Use Authorization (EUA) for use by authorizedlaboratories.Please review the "Fact Sheets" and FDA authorizedlabeling available for health care providers andpatients using the following websites:https://www.[employer].Linki/home/Covid-19/HCP/NAAT/fact-djxer0qiln s://www.[employer]Linki/home/Covid-19/Patients/NAAT/fact-murul5Dxd to the current public health emergency, [employer] is accepting samples from appropriateclinical sources collected using wide variety ofswabs and transport media for COVID-19. Not detectedtest results derived from specimens received in non-commercially manufactured viral collection kits or thosenot yet authorized by FDA for COVID-19 testing should becautiously evaluated and take extra precautions such asadditional clinical monitoring, including collectionof an additional specimen.Additional information about COVID-19 can be foundat the [employer] website:www.[email or web address]/Covid19. ID Date Data Source [id number] 04/04/2021 09:18:00 AM EDT [facility] Name Value Range Interpretation Code Description Data Susan rce(s) Supporting Document(s) SARS-COV-2 RNA RESP QL ELAN+PROBE Detected [facility] This lab was ordered by [facility] and reported by Feidee GLEN FLORA. ID Date Data Source [id number] 04/04/2021 12:00:00 AM EDT [facility] Name Value Range Interpretation Code Description Data Susan rce(s) Supporting Document(s) SARS-CoV-2 lineage Spec AY.26 [facility] This lab was ordered by [facility] and reported by Fe[facility]. ID Date Data Source [id number] 03/26/2021 12:07:00 AM EDT [facility] Name Value Range Interpretation Code Description Data Susan rce(s) Supporting Document(s) Glucose, Fasting 115 mg/dL 70-100 Above high normal [facility] ([facility], ) Blood Urea Nitrogen 13 mg/dL 7-18 Normal (applies to non-nume dee results) [facility] ) Creatinine For GFR 1.04 mg/dL 0.55-1.30 Normal (applies to non -numeric results) [facility] ([facility]) Glomerular Filtration Rate Laboratory test result Normal (applies to non- numeric results) [facility] ([facility]) <content>Units are mL/min/1.73 m2</content>
<content></content>
<content>Chronic Kidney Disease Staging per NKF:</content>
<content></content>
<content>Stage I & II GFR >=60 Normal to Mildly Decreased</content>
<content>Stage III GFR 30- 59 Moderately Decreased</content>
<content>Stage IV GFR 15-29 Severely Decreased</content>
<content>Stage V GFR <15 Very Little GFR Left</content>
<content>ESRD GFR <15 on WAREHOUSE ATTENDANT</content>
<content></content> Sodium Level 140 meq/L 136-145 Normal (applies to non-numeric res ults) [facility] Chloride Level 108 meq/L 98-107 Above high normal [facility] ([facility]) Potassium Serum 4.8 meq/L 3.5-5.1 Normal (applies to non-numeric results) [facility] ([facility]) Anion Gap 5 meq/L 8-16 Below low normal [facility] ( [facility]) Calcium Level 8.1 mg/dL 8.5-10.1 Below low normal [facility] ([facility]) Carbon Dioxide Level 27 meq/L 21-32 Normal (applies to non-num cindy results) [facility] ([facility]) ID Date Data Source [id number] 03/26/2021 12:07:00 AM EDT [facility] ([facility]) Name Value Range Interpretation Code Description Data Susan rce(s) Supporting Document(s) White Blood Count 16.8 10 4.0-10.0 Above high normal [facility] ([facility]) Hemoglobin 10.5 g/dL 12.0-15.5 Below low normal [facility] ( [facility]) Hematocrit 33.0 % 36.0-47.0 Below low normal [facility] ( [facility]) Red Blood Count 3.57 10 4.00-5.40 Below low normal [facility] ([facility]) Mean Corpuscular HGB Conc 31.8 g/dL 32.0-36.5 Below low normal [facility]) Mean Corpuscular Hemoglobin 29.4 pg 27.0-33.0 Norm al (applies to non-numeric results) [facility] ([facility]) Mean Corpuscular Volume 92.4 fl 80.0-96.0 Normal ( applies to non-numeric results) [facility]) Platelet Count, Automated 265 10 150-450 Normal (applies to non-numeric results) [facility] ([facility]) Nucleated Red Blood Cell % 0.0 % 0-0 Normal (applies to n on-numeric results) [facility] ([facility]) Red Cell Distribution Width 13.2 % 11.5-14.5 Norm al (applies to non-numeric results) [facility] ([facility]) ID Date Data Source [id number] 03/26/2021 12:07:00 AM EDT [facility]) Name Value Range Interpretation Code Description Data Susan rce(s) Supporting Document(s) Glucose, Fasting 115 mg/dL 70-100 Above high normal [facility] ([facility]) Blood Urea Nitrogen 13 mg/dL 7-18 Normal (applies to non-nume dee results) [facility]) Creatinine For GFR 1.04 mg/dL 0.55-1.30 Normal (applies to non -numeric results) [facility] ([facility]) Sodium Level 140 meq/L 136-145 Normal (applies to non-numeric res ults) [facility]) Glomerular Filtration Rate Laboratory test result Normal (applies to non- numeric results) [facility]) <content>Units are mL/min/1.73 m2</content>
<content></content>
<content>Chronic Kidney Disease Staging per NKF:</content>
<content></content>
<content>Stage I & II GFR >=60 Normal to Mildly Decreased</content>
<content>Stage III GFR 30- 59 Moderately Decreased</content>
<content>Stage IV GFR 15-29 Severely Decreased</content>
<content>Stage V GFR <15 Very Little GFR Left</content>
<content>ESRD GFR <15 on WAREHOUSE ATTENDANT</content>
<content></content> Carbon Dioxide Level 27 meq/L 21-32 Normal (applies to non-num cindy results) [facility]) Potassium Serum 4.8 meq/L 3.5-5.1 Normal (applies to non-numeric results) [facility]) Chloride Level 108 meq/L 98-107 Above high normal [facility] ([facility]) Calcium Level 8.1 mg/dL 8.5-10.1 Below low normal [facility] ([facility]) Anion Gap 5 meq/L 8-16 Below low normal [facility] ( [facility]) ID Date Data Source [id number] 03/26/2021 12:07:00 AM EDT [facility] ([facility]) Name Value Range Interpretation Code Description Data Susan rce(s) Supporting Document(s) Red Blood Count 3.57 10 4.00-5.40 Below low normal [facility] ([facility]) White Blood Count 16.8 10 4.0-10.0 Above high normal [facility]) Hemoglobin 10.5 g/dL 12.0-15.5 Below low normal [facility] ( [facility]) Hematocrit 33.0 % 36.0-47.0 Below low normal [facility] ( [facility]) Mean Corpuscular Volume 92.4 fl 80.0-96.0 Normal ( applies to non-numeric results) [facility] ([facility]) Mean Corpuscular Hemoglobin 29.4 pg 27.0-33.0 Norm al (applies to non-numeric results) [facility] ([facility]) Mean Corpuscular HGB Conc 31.8 g/dL 32.0-36.5 Below low normal [facility] ([facility]) Red Cell Distribution Width 13.2 % 11.5-14.5 Norm al (applies to non-numeric results) [facility] ([facility]) Platelet Count, Automated 265 10 150-450 Normal (applies to non-numeric results) [facility] Nucleated Red Blood Cell % 0.0 % 0-0 Normal (applies to n on-numeric results) [facility] ([facility]) ID Date Data Source [id number] 03/25/2021 02:50:00 PM EDT [facility] ([facility], ) Name Value Range Interpretation Code Description Data Susan rce(s) Supporting Document(s) Surgical pathology study Laboratory test result [facility] ([facility], ) FINAL DIAGNOSIS A - Breast, right, reduction mastectomy: Benign fibrous breast parenchyma and skin. B - Breast, left, reduction mastectomy: Benign fibrous breast parenchyma and skin. 03/29/[id number] CLINICAL DIAGNOSIS Bilateral breast hypertrophy 03/26/20211326 GROSS DIAGNOSIS A - Received in formalin labeled "right breast tissue 421 grams" and consists of multiple fragments of skin and fibroadipose breast parenchyma measuring 16.0 x 15.5 x 5.5 cm. in aggregate. Sectioning of the specimen reveals dense fibrous tissue with no grossly apparent mass lesions. Press Pipe Inspector sections from the dense tissue is submitted in one block. B - Received in formalin labeled "left breast tissue 487 grams" and consists of multiple fragments of skin and fibroadipose breast parenchyma measuring 17.0 x 15.0 x 5.5 cm. in aggregate. Sectioning of the specimen reveals dense fibrous tissue with no grossly apparent mass lesions. Press Pipe Inspector sections from the dense tissue is submitted in one block. 03/26/20211326 Signed PREMA HURLEY MD 03/29/2021 1416 ID Date Data Source [id number] 03/20/2021 10:30:00 AM EDT [facility]) Name Value Range Interpretation Code Description Data Susan rce(s) Supporting Document(s) Coronavirus 2019 Nasopharygeal Laboratory test result [facility] ([facility]) ASSAY INFORMATION: Real Time RT-PCR NOTE: The COVID-19 assay has been cleared by the U.S. Food and Drug Administration under the Emergency Use Authorization (EUA). [facility] are designated as high complexity laboratories by the Clinical Laboratory Improvement Amendments of 1988(CLIA) and are qualified to perform this test. Not Detected ID Date Data Source [id number] 03/20/2021 09:52:00 AM EDT [facility] ([facility]) Name Value Range Interpretation Code Description Data Susan rce(s) Supporting Document(s) Glucose, Fasting 83 mg/dL 70-100 Normal (applies to non-numeric results) [facility] ([facility]) Blood Urea Nitrogen 15 mg/dL 7-18 Normal (applies to non-nume dee results) [facility] ([facility]) Creatinine For GFR 1.01 mg/dL 0.55-1.30 Normal (applies to non -numeric results) [facility] ([facility]) Sodium Level 139 meq/L 136-145 Normal (applies to non-numeric res ults) [facility] ([facility]) Glomerular Filtration Rate Laboratory test result Normal (applies to non- numeric results) [facility]) <content>Units are mL/min/1.73 m2</content>
<content></content>
<content>Chronic Kidney Disease Staging per NKF:</content>
<content></content>
<content>Stage I & II GFR >=60 Normal to Mildly Decreased</content>
<content>Stage III GFR 30- 59 Moderately Decreased</content>
<content>Stage IV GFR 15-29 Severely Decreased</content>
<content>Stage V GFR <15 Very Little GFR Left</content>
<content>ESRD GFR <15 on WAREHOUSE ATTENDANT</content>
<content></content> Potassium Serum 4.9 meq/L 3.5-5.1 Normal (applies to non-numeric results) [facility] ([facility]) Carbon Dioxide Level 25 meq/L 21-32 Normal (applies to non-num cindy results) [facility] ([facility]) Chloride Level 110 meq/L 98-107 Above high normal [facility] ([facility]) Calcium Level 9.6 mg/dL 8.5-10.1 Normal (applies to non-numeric re sults) [facility] ([facility]) Anion Gap 4 meq/L 8-16 Below low normal [facility] ( [facility]) Ast/Sgot 15 U/L 7-37 Normal (applies to non-numeric resul ts) [facility] ([facility]) Alkaline Phosphatase 117 U/L 45-117 Normal (applies to non-num cindy results) [facility] ([facility]) Bilirubin,Total 0.4 mg/dL 0.2-1.0 Normal (applies to non-numeric results) [facility] Alt/SGPT 21 U/L 12-78 Normal (applies to non-numeric resul ts) [facility] ([facility]) Total Protein 7.5 GM/DL 6.4-8.2 Normal (applies to non-numeric re sults) [facility] ([facility]) Albumin 3.8 GM/DL 3.2-5.2 Normal (applies to non-numeric resul ts) [facility] ([facility]) Albumin/Globulin Ratio 1.0 1.2-2.2 Below low normal [facility] ([facility]) ID Date Data Source [id number] 03/20/2021 09:52:00 AM EDT [facility] ([facility]) Name Value Range Interpretation Code Description Data Susan rce(s) Supporting Document(s) Red Blood Count 4.46 10 4.00-5.40 Normal (applies to non-numeric results) [facility] ([facility]) White Blood Count 5.2 10 4.0-10.0 Normal (applies to non-numeri c results) [facility] Mean Corpuscular Volume 92.6 fl 80.0-96.0 Normal ( applies to non-numeric results) [facility] ([facility]) Hemoglobin 13.1 g/dL 12.0-15.5 Normal (applies to non-numeric resul ts) [facility] ([facility]) Hematocrit 41.3 % 36.0-47.0 Normal (applies to non-numeric resul ts) [facility] ([facility]) Mean Corpuscular Hemoglobin 29.4 pg 27.0-33.0 Norm al (applies to non-numeric results) [facility] ([facility]) Red Cell Distribution Width 13.4 % 11.5-14.5 Norm al (applies to non-numeric results) [facility] ([facility]) Mean Corpuscular HGB Conc 31.7 g/dL 32.0-36.5 Below low normal [facility] ([facility]) Platelet Count, Automated 300 10 150-450 Normal (applies to non-numeric results) [facility] ([facility]) Neutrophils % 46.2 % 36.0-66.0 Normal (applies to non-numeric re sults) [facility] ([facility]) Lymph % 39.7 % 24.0-44.0 Normal (applies to non-numeric resul ts) [facility] ([facility]) Eos % 1.5 % 0.0-3.0 Normal (applies to non-numeric resul ts) [facility] ([facility]) [place] % 11.3 % 2.0-8.0 Above high normal [facility] ([facility]) Baso % 1.1 % 0.0-1.0 Above high normal [facility] ([facility]) Nucleated Red Blood Cell % 0.0 % 0-0 Normal (applies to n on-numeric results) [facility] ([facility]) Neutrophils # 2.4 10 1.5-8.5 Normal (applies to non-numeric re sults) [facility] ([facility]) Immature Granulocyte % 0.2 % 0-3.0 Normal (applies to non-n umeric results) [facility] ([facility]) Eos # 0.1 10 0.0-0.5 Normal (applies to non-numeric resul ts) [facility] ([facility]) Lymph # 2.1 10 1.5-5.0 Normal (applies to non-numeric resul ts) [facility] ([facility]) [place] # 0.6 10 0.0-0.8 Normal (applies to non-numeric resul ts) [facility] Baso # 0.1 10 0.0-0.2 Normal (applies to non-numeric resul ts) [facility] ([facility]) ID Date Data Source [id number] 01/20/2021 08:24:00 AM EDT [facility] CT/NG IS A QUALITATIVE IN VITRO [...] rce(s) Supporting Document(s) ID Date Data Source [id number] 01/19/2021 05:27:00 PM EDT [facility] Method of Collection:: Voided Name Value Range Interpretation Code Description Data Susan rce(s) Supporting Document(s) Color of Urine [facility] Appearance of Urine CLEAR [facility] pH of Urine by Test strip 5.5 5-8 [facility] Specific gravity of Urine by Refractometry 1.009 1.005-1.030 [facility] Leukocyte esterase [Presence] in Urine by Test strip NEGAT LISA [facility] Nitrite [Presence] in Urine by Test strip NEGATIVE [facility] Protein [Presence] in Urine by Test strip NEGATIVE [facility] Glucose [Mass/volume] in Urine by Automated test strip NEGATIVE NEG ATIVE [facility] Ketones [Presence] in Urine by Test strip NEGATIVE [facility] Urobilinogen [Presence] in Urine 0.2-1 EU/dl [facility] Bilirubin.total [Presence] in Urine by Automated test strip NEGATIVE [facility] Erythrocytes [#/volume] in Urine by Test strip NEGATIVE NEGATIVE [facility] URINE MICROSCOPIC? (CIF) NO [facility] ID Date Data Source [id number] 01/19/2021 04:10:00 PM EDT [facility] ([facility]) Name Value Range Interpretation Code Description Data Susan rce(s) Supporting Document(s) Appearance of Urine Laboratory test result [facility] ([facility]) Z11.3 Color of Urine Laboratory test result [facility] ([facility]) Z11.3 Specific gravity of Urine by Refractometry 1.009 1.005-1.030 [facility] ([facility]) Z11.3 pH of Urine by Test strip 5.5 5-8 [facility] ([facility]) Z11.3 Leukocyte esterase [Presence] in Urine by Test strip Laboratory francoise t result [facility] ([facility]) Z11.3 Nitrite [Presence] in Urine by Test strip Laboratory test result [facility] ([facility]) Z11.3 Glucose [Mass/volume] in Urine by Automated test strip Laborator y test result [facility] ([facility]) Z11.3 Protein [Presence] in Urine by Test strip Laboratory test result [facility] ([facility]) Z11.3 Urobilinogen [Presence] in Urine Laboratory test result 0.2-1 [facility] ([facility]) Z11.3 Ketones [Presence] in Urine by Test strip Laboratory test result [facility] ([facility]) Z11.3 Erythrocytes [#/volume] in Urine by Test strip Laboratory test result [facility] ([facility]) Z11.3 Bilirubin.total [Presence] in Urine by Automated test strip Laboratory test result [facility] ([facility]) Z11.3 Urine Microscopic? 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 Upon further questioning the patient does correlate her UTIs with intercourse and mandeep will have a trial of Macrobid as [...] suppressive dosing Coding Level of Care Code 21253 Est Pt Intermediate Comp Exam Expanded Problem Focused Diagnoses Encounter for sexually transmitted disease counseling Z70.8 <Electronically signed by Wei Salgado MD> 01/19/21 3164 Name Value Range Interpretation Code Description Data [facility](s) Supporting Document(s) ID Date Data Source [id number] 01/15/2021 12:50:00 PM EDT [facility] ([facility]) Name Value Range Interpretation Code Description Data [facility] Supporting Document(s) White Blood Count 7.9 10 4.0-10.0 Normal (applies to non-numeri c results) [facility] ([facility]) Red Blood Count 4.38 10 4.00-5.40 Normal (applies to non-numeric results) [facility] ([facility]) Hemoglobin 12.4 g/dL 12.0-15.5 Normal (applies to non-numeric resul ts) [facility] ([facility]) Hematocrit 40.1 % 36.0-47.0 Normal (applies to non-numeric resul ts) [facility] ([facility]) Mean Corpuscular Volume 91.6 fl 80.0-96.0 Normal ( applies to non-numeric results) [facility] ([facility]) Mean Corpuscular Hemoglobin 28.3 pg 27.0-33.0 Norm al (applies to non-numeric results) [facility] ([facility]) Mean Corpuscular HGB Conc 30.9 g/dL 32.0-36.5 Below low normal [facility] ([facility]) Neutrophils % 59.3 % 36.0-66.0 Normal (applies to non-numeric re sults) [facility] ([facility]) Red Cell Distribution Width 13.9 % 11.5-14.5 Norm al (applies to non-numeric results) [facility] ([facility]) Platelet Count, Automated 329 10 150-450 Normal (applies to non-numeric results) [facility] ([facility]) Lymph % 27.6 % 24.0-44.0 Normal (applies to non-numeric resul ts) [facility] ([facility]) Eos % 1.8 % 0.0-3.0 Normal (applies to non-numeric resul ts) [facility] ([facility]) [place] % 9.6 % 2.0-8.0 Above high normal [facility] ([facility]) Immature Granulocyte % 0.4 % 0-3.0 Normal (applies to non-n umeric results) [facility] ([facility]) Nucleated Red Blood Cell % 0.0 % 0-0 Normal (applies to n on-numeric results) [facility] ([facility]) Baso % 1.3 % 0.0-1.0 Above high normal [facility] ([facility]) [place] # 0.8 10 0.0-0.8 Normal (applies to non-numeric resul ts) [facility] ([facility]) Neutrophils # 4.7 10 1.5-8.5 Normal (applies to non-numeric re sults) [facility] ([facility]) Lymph # 2.2 10 1.5-5.0 Normal (applies to non-numeric resul ts) [facility]) Baso # 0.1 10 0.0-0.2 Normal (applies to non-numeric resul ts) [facility] ([facility]) Eos # 0.1 10 0.0-0.5 Normal (applies to non-numeric resul ts) [facility] ([facility]) ID Date Data Source [id number] 01/15/2021 12:50:00 PM EDT [facility] ([facility]) Name Value Range Interpretation Code Description Data Susan rce(s) Supporting Document(s) Blood Urea Nitrogen 12 mg/dL 7-18 Normal (applies to non-nume dee results) [facility] ([facility]) Creatinine For GFR 0.88 mg/dL 0.55-1.30 Normal (applies to non -numeric results) [facility] ([facility]) Glucose, Fasting 95 mg/dL 70-100 Normal (applies to non-numeric results) [facility] ([facility]) Glomerular Filtration Rate Laboratory test result Normal (applies to non- numeric results) [facility] ([facility]) <content>Units are mL/min/1.73 m2</content>
<content></content>
<content>Chronic Kidney Disease Staging per NKF:</content>
<content></content>
<content>Stage I & II GFR >=60 Normal to Mildly Decreased</content>
<content>Stage III GFR 30-59 Moderately Decreased</content>
<content>Stage IV GFR 15-29 Severely Decreased</content>
<content>Stage V GFR <15 Very Little GFR Left</content>
<content>ESRD GFR <15 on WAREHOU[employer] ATTENDANT</content>
<content></content> Sodium Level 139 meq/L 136-145 Normal (applies to non-numeric res ults) [facility] Chloride Level 109 meq/L 98-107 Above high normal [facility] ([facility]) Potassium Serum 4.6 meq/L 3.5-5.1 Normal (applies to non-numeric results) [facility] ([facility]) Carbon Dioxide Level 27 meq/L 21-32 Normal (applies to non-num cindy results) [facility] ([facility]) Calcium Level 9.3 mg/dL 8.5-10.1 Normal (applies to non-numeric re sults) [facility] ([facility]) Anion Gap 3 meq/L 8-16 Below low normal [facility] ( [facility]) Ast/Sgot 13 U/L 7-37 Normal (applies to non-numeric resul ts) [facility] ([facility]) Alkaline Phosphatase 99 U/L 45-117 Normal (applies to non-num cindy results) [facility] ([facility]) Alt/SGPT 25 U/L 12-78 Normal (applies to non-numeric resul ts) [facility] ([facility]) Total Protein 7.5 GM/DL 6.4-8.2 Normal (applies to non-numeric re sults) [facility] ([facility]) Bilirubin,Total 0.4 mg/dL 0.2-1.0 Normal (applies to non-numeric results) [facility] ([facility]) Albumin 4.0 GM/DL 3.2-5.2 Normal (applies to non-numeric resul ts) [facility] ([facility]) Albumin/Globulin Ratio 1.1 1.2-2.2 Below low normal [facility] ([facility]) ID Date Data Source [id number] 01/15/2021 12:50:00 PM EDT [facility] ([facility]) Name Value Range Interpretation Code Description Data Susan rce(s) Supporting Document(s) Fibrin D-dimer FEU [Mass/volume] in Platelet poor plasma 361.67 ng/mL Normal (applies to non-numeric results) [facility] ID Date Data Source [id number] 01/15/2021 12:50:00 PM EDT [facility] ([facility]) Name Value Range Interpretation Code Description Data Susan rce(s) Supporting Document(s) Prothrombin Time 13.2 s 12.7-14.5 Normal (applies to non-numeric results) [facility] ([facility]) Partial Thromboplastin Time 29.2 s 25.9-37.0 Norm al (applies to non-numeric results) [facility] ([facility]) Inr 0.96 Normal (applies to non-numeric resul ts) [facility] ([facility]) THERAPUTIC HUMAN INR VALUES INDICATIONS NORMAL RANGES PROPHYLAXIS/TREATMENT OF: VENOUS THROMBOSIS 2.0-3.0 PULMONARY EMBOLISM 2.0-3.0 PREVENTION OF SYSTEMIC EMBOLISM FROM: TISSUE HEART VALVES 2.0-3.0 ACUTE MYOCARDIAL INFARCTION 2.0-3.0 VALVULAR HEART DISEASE 2.0-3.0 ATRIAL FIBRILLATION 2.0-3.0 MECHANICAL VALVES(HIGH RISK) 2.5-3.5 RECURRENT MYOCARDIAL INFARCTION 2.5-3.5 ID Date Data Source [id number] 01/15/2021 12:50:00 PM EDT [facility] ([facility]) Name Value Range Interpretation Code Description Data Susan rce(s) Supporting Document(s) Troponin I.cardiac [Mass/volume] in Serum or Plasma Laboratory t est result Normal (applies to non-numeric results) [facility]) <content>Troponin I Reference Interval f or Siemens [place]in[place]el LOCI:</content>
<content></content>
<content>99th Percentile= 0.00-0.045 ng/ml</content>
<content></content>
<content>Risk Stratification:</content>
<content><= 0.10 ng/ml Decreased Risk for Adverse Clinical</content>
<content>Events.</content>
<content>0.10-1.50 ng/ml Increased Risk for Adverse Clinical</content>
<content>Events. Evaluation of additional</content>
<content>criterion and/or repeat testing in 2-6</content>
<content>hours is suggested to rule out myocardial</content>
<content>damage.</content>
<content>>= 1.50 ng/ml Indicative of Myocardial Injury.</content>
<content></content> ID Date Data Source [id number] 01/15/2021 11:50:00 AM EDT [facility] ([facility]) Name Value Range Interpretation Code Description Data Susan rce(s) Supporting Document(s) EKG Laboratory test result [facility] ([facility]) ID Date Data Source [id number] 12/24/2020 10:33:00 AM EDT [facility] @12/24/20 1004: UA W/ MICRO added. RFLXG = UMIC CIF.Method of Collection:: Clean Catch @12/24/20 1034: Urine culture added. RFL XG = CULT.ADD.@12/26/20 0700: Urine ID Charge added. RFLXG = CHGURID. @12/24/20 1004: UA W/ MICRO added. RFLXG = UMIC CIF.Method of Collection:: Clean Catch Name Value Range Interpretation Code Description Data Susan rce(s) Supporting Document(s) Color of Urine [facility] Appearance of Urine CLEAR [facility] pH of Urine by Test strip 6.5 5-8 [facility] Specific gravity of Urine by Refractometry 1.005 1.005-1.030 [facility] Leukocyte esterase [Presence] in Urine by Test strip NEGATIVE Abnormal (applies to non-numeric results) [facility]A Culture has been added to this specimen per established criteria Nitrite [Presence] in Urine by Test strip NEGATIVE Above high normal [facility] @DO MICRO!!!!A Culture has been added to this specimen per established criteria Protein [Presence] in Urine by Test strip NEGATIVE [facility] Glucose [Mass/volume] in Urine by Automated test strip NEGATIVE NEG ATIVE [facility] Ketones [Presence] in Urine by Test strip NEGATIVE [facility] Urobilinogen [Presence] in Urine 0.2-1 EU/dl [facility] Bilirubin.total [Presence] in Urine by Automated test strip NEGATIVE [facility] Erythrocytes [#/volume] in Urine by Test strip NEGATIVE NEGATIVE [facility] URINE MICROSCOPIC? (CIF) Microscopic Added [facility] ID Date Data Source [id number] 12/24/2020 09:56:00 AM EDT [facility] ([facility]) Name Value Range Interpretation Code Description Data Susan rce(s) Supporting Document(s) Trimethoprim/Sulfamethoxazole Laboratory test result Susceptible. Indicates for microbiology susceptibilities only. [facility] ([facility]) N39.0,R30.0 Ampicillin [Susceptibility] by Minimum inhibitory conc entration ([facility]) Laboratory test result Susceptible. Indicates for microbiology suscepti bilities only. [facility] ([facility]) N39.0,R30.0 Ampicillin+Sulbactam [Susceptibility] by Minimum inhib itory concentration ([facility]) Laboratory test result Susceptible. Indicates for m icrobiology susceptibilities only. [facility] ([facility] N39.0,R30.0 Amoxicillin+Clavulanate [Susceptibility] by Minimum inhibitory concentration ([facility]) Laboratory test result Susceptible. Radha cates for microbiology susceptibilities only. [facility] N39.0,R30.0 Cefotaxime [Susceptibility] by Minimum inhibitory conc entration ([facility]) Laboratory test result Susceptible. Indicates for microbiology suscepti bilities only. [facility] ([facility]) N39.0,R30.0 Ceftriaxone [Susceptibility] by Minimum inhibitory con centration ([facility]) Laboratory test result Susceptible. Indicates for m icrobiology susceptibilities only. [facility] ([facility] N39.0,R30.0 Ciprofloxacin [Susceptibility] by Minimum inhibitory c oncentration ([facility]) Laboratory test result Susceptible. Indicates for m icrobiology susceptibilities only. [facility] ([facility]) N39.0,R30.0 Gentamicin [Susceptibility] by Minimum inhibitory conc entration ([facility]) Laboratory test result Susceptible. Indicates for microbiology suscepti bilities only. [facility] ([facility]) N39.0,R30.0 Ertapenem [Susceptibility] by Minimum inhibitory tawanda ntration ([facility]) Laboratory test result Susceptible. Indicates for microbiology suscepti bilities only. [facility] N39.0,R30.0 Nitrofurantoin [Susceptibility] by Minimum inhibitory concentration ([facility]) Laboratory test result Susceptible. Indicates for m icrobiology susceptibilities only. [facility] ([facility]) N39.0,R30.0 Imipenem [Susceptibility] by Minimum inhibitory concen tration ([facility]) Laboratory test result Susceptible. Indicates for microbiology suscepti bilities only. [facility] ([facility]) N39.0,R30.0 Tobramycin [Susceptibility] by Minimum inhibitory conc entration ([facility]) Laboratory test result Susceptible. Indicates for microbiology suscepti bilities only. [facility] ([facility]) N39.0,R30.0 Tetracycline [Susceptibility] by Minimum inhibitory co ncentration ([facility]) Laboratory test result Susceptible. Indicates for m icrobiology susceptibilities only. [facility] ([facility] N39.0,R30.0 Levofloxacin [Susceptibility] by Minimum inhibitory co ncentration ([facility]) Laboratory test result Susceptible. Indicates for m icrobiology susceptibilities only. [facility] ([facility]) N39.0,R30.0 Cefepime [Susceptibility] by Minimum inhibitory concen tration ([facility]) Laboratory test result Susceptible. Indicates for microbiology suscepti bilities only. [facility] ([facility]) N39.0,R30.0 Piperacillin+Tazobactam [Susceptibility] by Minimum inhibitory concentration ([facility]) Laboratory test result Susceptible. Radha cates for microbiology susceptibilities only. [facility] N39.0,R30.0 ID Date Data Source [id number] 12/24/2020 09:56:00 AM EDT [facility]) Name Value Range Interpretation Code Description Data Susan rce(s) Supporting Document(s) Bacteria identified in Urine by Culture Laboratory test result [facility] [facility]) N39.0,R30.0 Bacteria identified in Urine by Culture Laboratory test result [facility] ([facility]) N39.0,R30.0 Occidental count Laboratory test result [facility]) N39.0,R30.0 ID Date Data Source [id number] 12/24/2020 09:56:00 AM EDT [facility]) Name Value Range Interpretation Code Description Data Susan rce(s) Supporting Document(s) Leukocytes [#/volume] in Urine by Manual count Laboratory test r esult 0-5 Above high normal [facility]) N39.0,R30.0 Cells [Type] in Urine sediment by Light microscopy Laboratory test re sult [facility] ([facility]) N39.0,R30.0 Bacteria [Presence] in Urine sediment by Light microsc opy Laboratory test result Above high normal [facility] ([facility]) N39.0,R30.0 ID Date Data Source [id number] 12/24/2020 09:56:00 AM EDT [facility] ([facility]) Name Value Range Interpretation Code Description Data Susan rce(s) Supporting Document(s) Color of Urine Laboratory test result [facility] ([facility]) N39.0,R30.0 Specific gravity of Urine by Refractometry 1.005 1.005-1.030 [facility] ([facility]) N39.0,R30.0 Appearance of Urine Laboratory test result [facility] ([facility]) N39.0,R30.0 pH of Urine by Test strip 6.5 5-8 [facility] ([facility]) N39.0,R30.0 Nitrite [Presence] in Urine by Test strip Laboratory test result Above high normal [facility] ([facility]) N39.0,R30.0 Leukocyte esterase [Presence] in Urine by Test strip Laboratory test result Abnormal (applies to non-numeric results) [facility] ([facility]) N39.0,R30.0 Protein [Presence] in Urine by Test strip Laboratory test result [facility] ([facility]) N39.0,R30.0 Glucose [Mass/volume] in Urine by Automated test strip Laborator y test result [facility] ([facility]) N39.0,R30.0 Ketones [Presence] in Urine by Test strip Laboratory test result [facility] ([facility]) N39.0,R30.0 Bilirubin.total [Presence] in Urine by Automated test strip Laboratory test result [facility] ([facility]) N39.0,R30.0 Urobilinogen [Presence] in Urine Laboratory test result 0.2-1 [facility] ([facility]) N39.0,R30.0 Erythrocytes [#/volume] in Urine by Test strip [facility] N39.0,R30.0 Urine Microscopic? 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 Her IUd was placed on 10/27/20. She is having some spotting after intercourse. No other questions or concerns. 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 History Hx Age of Menarche: [...] well groomed Orientation: alert and oriented x3 [facility] Head: normocephalic and atraumatic Eyes General: appearance [...] a day for 14 days Discontinued Reason: Order 100 mg PO BID 14 days [...] rce(s) Supporting Document(s) ID Date Data Source [id number] 10/27/2020 02:54:00 PM EDT [facility] Patient Name: LUIS MCCARTHY : 1995 Sex: F Pt Unit #: [id number] Location:[facility] Provider: Visit Date/Time: 10/27/20 Primary Insurance: MEDICAID [facility] Secondary Insurance: Self Pay Intake Vital [...] Delivery Method room air 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 Urine HCG done in office and negative. Pt signed consent for procedure. Pt's BP is elevated today, states she has HTN and is also nervous. Denies any other concerns today. Kyleena IUD placed; [facility]: [id number], lot: [id number]; exp: 10/01. Pt tolerated well. Recovery Rn Required: No Accompanied by: Self / Same [...] <Electronically signed by Letha Lemus MD> 10/27/20 4614 Name Value Range Interpretation Code Description Data Susan rce(s) Supporting Document(s) ID Date Data Source [id number] 10/19/2020 07:10:00 PM EDT [facility] [address] [id number] [phone] NAME SEX PT STATUS ACCOUNT NUMBER LUIS MCCARTHY REG REF [id number] ORDERING PHYSICIAN LOCATION MEDICAL RECORD NO. 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 patient is doing a PAP, UA, GC, Affirm. patient does self breast exam. she is concerned with lump in left arm pit. patient has plans for breast reduction in 6 months. 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 For MASSAGE THERAPY INSTRUCTOR evaluation. Complaints of left axilla mass, not [...] nourished Orientation: alert, awake and oriented x3 [facility] Head: normal to inspection, normocephalic and atraumatic [...] (general) (routine) without abnormal findings SNOMED Code(s): 626457642 Category: Medical Qualifiers: Gynecological examination findings: abnormal findings PRESENT Qualified Code(s): Z01.411 - Encounter for gynecological examination (general) (routine) with abnormal findings Plan - Letha Lemus MD: 1. MASSAGE THERAPY INSTRUCTOR evaluation. 2. Labs: Pap, PCR swab vagina, GC/chlamydia, UA/C S. 3. Patient to significant urinary frequency: Says she drinks a lot of water: Rule out UTI. (3) Mass of axillary tail of left breast: Status: Acute Code(s): N63.32 - Unspecified lump in axillary tail of the left breast SNOMED Code(s): 294137280 Category: Medical Plan - Letha Lemus MD: 1. Left axillary mass: 2 x 2 cm rubbery, mobile, nontender mass. 2. Bilateral ultrasound of breast. Orders: Orders: US Breast - Complete Bilat 1 Week (4) Contraception management: Status: Acute Code(s): Z30.9 - Encounter for contraceptive management, unspecified SNOMED Code(s): 939370148 Category: Medical Qualifiers: IUD management: initial prescription [...] 1 Week Coding Level of Care Code 85290 New Pt Intermediate Comp History Detailed Exam [...] rce(s) Supporting Document(s) ID Date Data Source [id number] 10/26/2020 07:07:00 AM EDT [facility] [id number] MENSTRUAL PERIOD 09/30/20C ollection Technique: BRUSH- SPATULAPATIENT INFORMATION: ORAL CONTRACEPTIVESPREVIOUS CYTOLOGY: OTHERPREVIOUS TREATMENT: NONEBody Site: CERVIX Name Value Range Interpretation Code Description Data Susan rce(s) Supporting Document(s) Microscopic observation [Identifier] in Vaginal fluid by Cyt o stain.thin prep [facility] ID Date Data Source [id number] 10/17/2020 03:19:00 PM EDT [facility] CALLED TO DR CHILDS 10/17/20 AT 0835 BY Marika ROCHA.CALLED TO SHEREE [facility] 10/19/20 @ 1000 [facility] IS A QUALITATIVE IN VITRO REAL-TIME PCR TEST FORDETECTION OF CHLAMYDIA TRACHOMATIS (CT) AND NEISSERIAGONORRHOEAE (NG)NORMAL VALUE FOR CT/NG IS " NO ORGANISMS DETECTED "C trach DNA Vag Ql ELAN+probeN gonorrhoea rRNA Vag Ql ELAN+probe Name Value Range Interpretation Code Description Data Susan rce(s) Supporting Document(s) Urine culture result No growth [facility] ID Date Data Source [id number] 10/19/2020 08:57:00 AM EDT [facility] CALLED TO DR CHILDS 10/17/20 AT 0835 BY Marika ROCHA.CALLED TO SHEREE S [facility] 10/19/20 @ 1000 BY [facility]T/NG IS A QUALITATIVE IN VITRO REAL-TIME PCR TEST FORDETECTION OF CHLAMYDIA TRACHOMATIS (CT) AND NEISSERIAGONORRHOEAE (NG)NORMAL VALUE FOR CT/NG IS " NO ORGANISMS DETECTED "C trach DNA Vag Ql ELAN+probeN gonorrhoea rRNA Vag Ql ELAN+probe Name Value Range Interpretation Code Description Data Susan rce(s) Supporting Document(s) Trichomonas DNA Probe NOT DETECTED NOT DETECTED [facility] Gardnerella DNA Probe DETECTED NOT DETECTED Above high normal [facility] Increased levels of G. vaginalis may not be significantin the absence of signs and symptoms of bacterialvaginosis. Mary Kay species DNA Probe NOT DETECTED NOT DETECTED [facility] THIS TEST WAS PERFORMED AT:[facility] [id number] MERATI,MD ID Date Data Source [id number] 10/16/2020 07:04:00 PM EDT [facility] CALLED TO DR CHILDS 10/17/20 AT 0835 BY Marika ROCHA.CALLED TO SHEREE Lange @ [facility] 10/19/20 @ 1000 BY EJT/NG IS A QUALITATIVE IN VITRO REAL-TIME PCR TEST FORDETECTION OF CHLAMYDIA TRACHOMATIS (CT) AND NEISSERIAGONORRHOEAE (NG)NORMAL VALUE FOR CT/NG IS " NO ORGANISMS DETECTED "C trach DNA Vag Ql ELAN+probeN gonorrhoea rRNA Vag Ql ELAN+probe Name Value Range Interpretation Code Description Data Susan rce(s) Supporting Document(s) ID Date Data Source [id number] 08/26/2020 10:51:00 AM [facility] Patient Name: LUIS MCCARTHY OB: 1995 Sex: F Pt Unit #: [id number] Location:[facility] Provider: Visit Date/Time: 08/26/20 Primary Insurance: Self Pay Secondary Insurance: Intake Nurse Note Intake Visit Reasons: PPD Placement/Read Nurse Note: Pt was given a PPD for screening purposes. Office Meds tuberculin PPD Performing Provider: Jack Granados M.D. Administered by: Ana Woody on 08/26/20 10:53 Dose Route Admin Location Lot Number Expiration Date NDC Manufactu rer 0.1 mL intradermal LFA [id number] 01/06/22 [id number] [employer] Assessment Plan Assessment Plan (1) Encounter for tuberculin skin test: Code(s): Z11.1 - Encounter for screening for respiratory tuberculosis Orders: Orders: INJ - TB intradermal test Today <Electronically signed by Jack Granados MD> 08/26/20 1106 Name Value Range Interpretation Code Description Data Susan rce(s) Supporting Document(s) ID Date Data Source [id number] 07/30/2020 11:00:00 AM EST [facility] Name Value Range Interpretation Code Description Data Susan rce(s) Supporting Document(s) SARS coronavirus 2 RNA Not Detected [facility] This lab was ordered by [facility] and reported by [facility]. ID Date Data Source [id number] 07/28/2020 01:00:00 PM EST [facility] Name Value Range Interpretation Code Description Data Susan rce(s) Supporting Document(s) SARS coronavirus 2 RNA Not Detected [facility] This lab was ordered by [facility] and reported by [facility]. ID Date Data Source [id number] 06/22/2020 12:30:00 PM EST [facility] Name Value Range Interpretation Code Description Data Susan rce(s) Supporting Document(s) SARS coronavirus 2 RNA Not Detected [facility] This lab was ordered by [facility] and reported by [facility]. Procedure Social History No Information Vital Signs ID Date Data Source UNK Name Value Range Interpretation Code Description Data Source(s) [place] body weight 135 [lb_av] 135 [lb_av] [facility] ([facility]) Systolic blood pressure 118 mm[Hg] 118 mm[Hg] [facility] ([facility]) Diastolic blood pressure 78 mm[Hg] 78 mm[Hg] [facility] ([facility]) Heart rate 80 /min 80 /min [facility] ([facility]) Respiratory rate 14 /min 14 /min [facility] ( [facility]) Body temperature 96.9 [degF] 96.9 [degF] [facility] ([facility]) Body height 67 [in_i] 67 [in_i] [facility] ([facility]) 5'7" Body mass index (BMI) [Ratio] 29.1 kg/m2 29.1 k g/m2 [facility] ([facility]) Diastolic blood pressure 82 mm[Hg] 82 mm[Hg] [facility] ([facility]) Heart rate 78 /min 78 /min [facility] ([facility]) Respiratory rate 18 /min 18 /min [facility] ( [facility]) Systolic blood pressure 122 mm[Hg] 122 mm[Hg] [facility] ([facility]) Body height 66.5 [in_i] 66.5 [in_i] [facility] 5'6.50" [place] body weight 130 [lb_av] 130 [lb_av] [facility] ([facility]) Body weight 183.00 [lb_av] 183.00 [lb_av] [facility] ([facility]) Body temperature 97.5 [degF] 97.5 [degF] [facility] ([facility]) Oxygen saturation in Arterial blood by Pulse oximetry 97 % 97 % [facility] ([facility]) Heart rate 68 /min 68 /min [facility] ([facility]) Systolic blood pressure 115 mm[Hg] 115 mm[Hg] [facility] ([facility]) Diastolic blood pressure 77 mm[Hg] 77 mm[Hg] [facility] ([facility]) Body height 67 [in_i] 67 [in_i] [facility] ([facility]) 5'7" Body weight 181.25 [lb_av] 181.25 [lb_av] [facility] ([facility]) [place] body weight 135 [lb_av] 135 [lb_av] [facility] ([facility]) Body weight 82.215 kg 82.215 kg [facility] ([facility]) Body surface area Derived from formula 1.94 m2 1.94 m2 [facility] ([facility]) Body mass index (BMI) [Ratio] 28.4 kg/m2 28.4 k g/m2 [facility] ([facility]) Diastolic blood pressure 72 mm[Hg] 72 mm[Hg] [facility] ([facility]) Systolic blood pressure 118 mm[Hg] 118 mm[Hg] [facility] Body height 66.5 [in_i] 66.5 [in_i] [facility] ([facility]) 5'6.50" Body weight 184.25 [lb_av] 184.25 [lb_av] [facility] ([facility]) Heart rate 78 /min 78 /min [facility] ([facility]) Respiratory rate 18 /min 18 /min [facility] ( [facility]) Oxygen saturation in Arterial blood by Pulse oximetry 98 % 98 % [facility] Body mass index (BMI) [Ratio] 29.3 kg/m2 29.3 k g/m2 [facility] ([facility]) Body temperature 98.1 [degF] 98.1 [degF] [facility] [place] body weight 130 [lb_av] 130 [lb_av] [facility] ([facility]) Respiratory rate 16 /min 16 /min [facility] ( [facility]) Body temperature 96.8 [degF] 96.8 [degF] [facility] ([facility]) Body height 67 [in_i] 67 [in_i] [facility] ([facility]) 5'7" Body weight 192.00 [lb_av] 192.00 [lb_av] [facility] ([facility]) Body mass index (BMI) [Ratio] 30.1 kg/m2 30.1 k g/m2 [facility] ([facility]) [place] body weight 135 [lb_av] 135 [lb_av] [facility] ([facility] Body weight 87.091 kg 87.091 kg [facility] ([facility]) Body surface area Derived from formula 1.99 m2 1.99 m2 [facility] ([facility]) Body temperature 96.8 [degF] 96.8 [degF] [facility] ([facility]) Systolic blood pressure 140 mm[Hg] 140 mm[Hg] [facility] ([facility]) Diastolic blood pressure 102 mm[Hg] 102 mm[Hg] [facility] ([facility]) Heart rate 84 /min 84 /min [facility] ([facility]) Respiratory rate 16 /min 16 /min [facility] ( [facility]) Body weight 87.091 kg 87.091 kg [facility] ([facility]) Body surface area Derived from formula 1.99 m2 1.99 m2 [facility] ([facility]) Body height 67 [in_i] 67 [in_i] [facility] ([facility]) 5'7" Body weight 192.00 [lb_av] 192.00 [lb_av] [facility] ([facility]) Body mass index (BMI) [Ratio] 30.1 kg/m2 30.1 k g/m2 [facility] ([facility]) [place] body weight 135 [lb_av] 135 [lb_av] [facility] ([facility]) [place] body weight 130 [lb_av] 130 [lb_av] [facility] ([facility]) Systolic blood pressure 122 mm[Hg] 122 mm[Hg] [facility] ([facility]) Diastolic blood pressure 78 mm[Hg] 78 mm[Hg] [facility] ([facility]) Body height 66.5 [in_i] 66.5 [in_i] [facility] 5'6.50" Body weight 192.00 [lb_av] 192.00 [lb_av] [facility] ([facility]) Body mass index (BMI) [Ratio] 30.5 kg/m2 30.5 k g/m2 [facility] ([facility]) Heart rate 77 /min 77 /min [facility] Respiratory rate 18 /min 18 /min [facility] ( [facility]) Body temperature 98.5 [degF] 98.5 [degF] [facility] ([facility]) Oxygen saturation in Arterial blood by Pulse oximetry 98 % 98 % [facility] ([facility]) Body height 67 [in_i] 67 [in_i] [facility] ([facility]) 5'7" Body weight 81.648 kg 81.648 kg [facility] ([facility]) Body weight 180.00 [lb_av] 180.00 [lb_av] [facility] ([facility]) Body mass index (BMI) [Ratio] 28.2 kg/m2 28.2 k g/m2 [facility] [place] body weight 135 [lb_av] 135 [lb_av] [facility] ([facility]) Body surface area Derived from formula 1.93 m2 1.93 m2 [facility] ([facility] ) Systolic blood pressure 120 mm[Hg] 120 mm[Hg] [facility] ([facility]) Oxygen saturation in Arterial blood by Pulse oximetry 99 % 99 % [facility] ([facility]) Diastolic blood pressure 74 mm[Hg] 74 mm[Hg] [facility] ([facility]) Body height 66.5 [in_i] 66.5 [in_i] [facility] ([facility]) 5'6.50" Body weight 184.38 [lb_av] 184.38 [lb_av] [facility] ([facility]) Body mass index (BMI) [Ratio] 29.3 kg/m2 29.3 k g/m2 [facility] ([facility]) Heart rate 87 /min 87 /min [facility] Respiratory rate 18 /min 18 /min [facility] ( [facility]) Body temperature 98.2 [degF] 98.2 [degF] [facility] [place] body weight 130 [lb_av] 130 [lb_av] [facility] ([facility])
== END 2021-03-26 14:05 | disposition home or self-care (01) ==
LOC: M SDC 10:23 → M MS5PR 15:33 → M SDC 17:30 → M MS5PR 03-26 14:05
PROVIDERS: ADMIT Plastic Surgery Surgery of the Hand; ATTEND Plastic Surgery Surgery of the Hand
DX: N62 Hypertrophy of breast (principal); K21.9 Gastro-esophageal reflux disease without esophagitis; K58.8 Other irritable bowel syndrome; Z79.899 Other long term (current) drug therapy; F43.10 Post-traumatic stress disorder, unspecified; F41.9 Anxiety disorder, unspecified; G43.909 Migraine, unspecified, not intractable, without status migrainosus
CPT/HCPCS: 19318; 36415; 80048; 81025; 85027; 88305; 96374; C9290; J0131; J0690; J1100; J1170; J1580; J1644; J2250; J2270; J2370; J2405; J2765; J3010

== ENCOUNTER → 2023-04-03 | Outpatient (CLI) | payer OTHER ==
[~2023-04-03] MED LIST changes: -BUPIVACAINE LIPOSOME/PF 1.3% 20ML VIAL (13.3MG/ML)(EXPAREL)(C9290 PER1MG) As Ordered ONE; -GENTAMICIN SULF 80MG/2ML VIAL As Ordered ONE; -HEPARIN SOD (PORCINE) 5000UNITS/ML 1ML VIAL/SYRINGE SQ ONE; -LIDOCAINE 2% 100MG/5ML SDV (FOR ANES.) As Ordered ONE; -LR 1,000 ML IV ONE; -MIDAZOLAM INJ 2MG/2ML VIAL (J2250 PER 1MG) As Ordered ONE; -ONDANSETRON 4MG/2ML VIAL As Ordered ONE; -ROCURONIUM BROMIDE 50 MG/5 ML VIAL As Ordered ONE; -SUGAMMADEX SODIUM 500 MG/5 ML VIAL (BRIDION) As Ordered ONE; +TRAM50TA2 PO; -ceFAZolin SOD 2 GM in IV 1 EA IV ONE; -dexameTHASONE 4 MG/ML 1ML VIAL (J1100 PER 1MG) As Ordered ONE; -fentaNYL 250 MCG/5 ML INJECTION (J3010) As Ordered ONE; -propofoL 200 MG/20 ML VIAL As Ordered ONE
[2023-04-03 16:11] LABS: HEMATOCRIT 40.1 % (36.0-47.0); HEMOGLOBIN 13.2 g/dl (12.0-15.5); MEAN CORPUSCULAR HGB CONC 32.9 g/dl (32.0-36.5); MEAN CORPUSCULAR VOLUME 91.1 fl (80.0-96.0); PLATELET COUNT, AUTOMATED 313 10^3/uL (150-450); WHITE BLOOD COUNT 13.1 10^3/uL (4.0-10.0)
[2023-04-03 17:44] LABS: GC DNA AMPLIFICATION NEGATIVE (NEGATIVE)
[2023-04-04 00:28] LABS: HIV 1&2 SCREEN NEGATIVE (NEGATIVE)
[2023-04-04 00:37] LABS: HEPATITIS C VIRUS ABY INDEX 0.04 INDEX (<0.8)
== END ==
LOC: M PLALAB 08:50
PROVIDERS: ATTEND Obstetrics & Gynecology
DX: Z34.91 Encounter for supervision of normal pregnancy, unspecified, first trimester (principal); Z3A.00 Weeks of gestation of pregnancy not specified

== ENCOUNTER → 2023-05-29 | Outpatient (CLI) | payer OTHER | LOC: M WHC 08:11 | PROVIDERS: ATTEND Advanced Practice Midwife | DX: Z34.81 Encounter for supervision of other normal pregnancy, first trimester (principal) ==

== ENCOUNTER → 2023-06-29 | Outpatient (REF) | payer OTHER | LOC: M PLALAB 13:58 | PROVIDERS: ATTEND Advanced Practice Midwife | DX: R10.2 Pelvic and perineal pain (principal) ==

== ENCOUNTER → 2023-08-09 | Outpatient (CLI) | payer OTHER ==
[2023-08-09 14:28] LABS: HEMATOCRIT 35.8 % (36.0-47.0); HEMOGLOBIN 11.6 g/dl (12.0-15.5); MEAN CORPUSCULAR HEMOGLOBIN 30.8 pg (27.0-33.0); MEAN CORPUSCULAR HGB CONC 32.4 g/dl (32.0-36.5); PLATELET COUNT, AUTOMATED 315 10^3/uL (150-450); RED BLOOD COUNT 3.77 10^6/uL (4.00-5.40); WHITE BLOOD COUNT 15.6 10^3/uL (4.0-10.0)
== END ==
LOC: M PLALAB 09:01
PROVIDERS: ATTEND Advanced Practice Midwife
DX: Z34.02 Encounter for supervision of normal first pregnancy, second trimester (principal); Z3A.00 Weeks of gestation of pregnancy not specified

== ENCOUNTER 2023-08-15 12:34 | Outpatient (CLI) | payer OTHER ==
[~2023-08-15] VITALS: Ht 167.6 cm; Wt 91.2 kg
[2023-08-15 12:52] VITALS: BP 124/79
[2023-08-15] MEDS ORDERED: PRENTAB9 PO (12:59)
[2023-08-15] MEDS ORDERED: OMEP-173 PO (12:59)
[2023-08-15] MEDS ORDERED: HOME MED LIST COMPLETE! XX SCH (13:00)
[2023-08-15] MEDS: LACTATED RINGER'S 1000 ML IV STA (13:25)
[2023-08-15] MEDS: LR 1,000 ML IV SCH (13:26)
[2023-08-15] MEDS: ONDANSETRON 4MG 2ML VIAL IV PRN (13:30)
[2023-08-15 13:43] LABS: HEMATOCRIT 35.7 % (36.0-47.0); HEMOGLOBIN 11.7 g/dl (12.0-15.5); MEAN CORPUSCULAR HEMOGLOBIN 30.2 pg (27.0-33.0); MEAN CORPUSCULAR HGB CONC 32.8 g/dl (32.0-36.5); PLATELET COUNT, AUTOMATED 298 10^3/uL (150-450); RED BLOOD COUNT 3.88 10^6/uL (4.00-5.40); WHITE BLOOD COUNT 21.6 10^3/uL (4.0-10.0)
[2023-08-15 14:10] LABS: LIPASE 29 U/L (12-53)
[2023-08-15 14:11] LABS: AMYLASE 74 U/L (30-118)
[2023-08-15 14:12] LABS: ALBUMIN 2.9 G/DL (3.2-5.2); ALKALINE PHOSPHATASE 120 U/L (46-116); ALT/SGPT 15 U/L (7.0-40); AST/SGOT 15 U/L (<34); BILIRUBIN,TOTAL 0.5 MG/DL (0.3-1.2); BLOOD UREA NITROGEN 9 MG/DL (9-23); CALCIUM LEVEL 8.4 MG/DL (8.5-10.1); CARBON DIOXIDE LEVEL 20 MMOL/L (20-31); CHLORIDE LEVEL 106 MMOL/L (98-107); CREATININE FOR GFR 0.57 MG/DL (0.55-1.30); GLOMERULAR FILTRATION RATE > 60.0 (>60); GLUCOSE, FASTING 78 MG/DL (60-100); POTASSIUM SERUM 3.9 MMOL/L (3.5-5.1); SODIUM LEVEL 136 MMOL/L (136-145); TOTAL PROTEIN 6.7 G/DL (5.7-8.2)
[2023-08-15 18:28] VITALS: BP 111/59
[2023-08-15] MEDS: METOCLOPRAMIDE INJ 10MG/2ML VIAL IV PRN (19:25)
[2023-08-15 19:48] VITALS: BP 139/77
[2023-08-15] MEDS: ACETAMINOPHEN 500 MG TAB PO PRN (20:16)
[2023-08-15] MEDS ORDERED: ONDA4TAB6 PO (21:16)
== END 2023-08-15 23:00 | disposition home or self-care (01) ==
LOC: M LDO 12:34
PROVIDERS: ATTEND Obstetrics & Gynecology
DX: O26.893 Other specified pregnancy related conditions, third trimester (principal); R10.11 Right upper quadrant pain; O21.8 Other vomiting complicating pregnancy; Z3A.30 30 weeks gestation of pregnancy
CPT/HCPCS: 59025; 76705; 80053; 82150; 83690; 85027; 96374; 96376; G0463; J2405; J2765

== ENCOUNTER → 2023-09-22 | Outpatient (REF) | payer OTHER ==
[~2023-09-22] MED LIST changes: +OMEP-173 PO; +ONDA4TAB6 PO; +PRENTAB9 PO
== END ==
LOC: M PLALAB 09:33
PROVIDERS: ATTEND Obstetrics & Gynecology
DX: Z34.83 Encounter for supervision of other normal pregnancy, third trimester (principal)

== ENCOUNTER → 2024-03-25 | Outpatient (CLI) | payer OTHER ==
[~2024-03-25] MED LIST changes: +ACET-683 PO; +ACET325C5 PO; +COLA100C5 PO; +IBUP-1022 PO; +ONDA-282 PO; -ONDA4TAB6 PO; +OXYC-517 PO
[2024-03-25 17:52] LABS: HEMATOCRIT 35.1 % (36.0-47.0); HEMOGLOBIN 11.2 g/dl (12.0-15.5); MEAN CORPUSCULAR HEMOGLOBIN 26.8 pg (27.0-33.0); MEAN CORPUSCULAR HGB CONC 31.9 g/dl (32.0-36.5); PLATELET COUNT, AUTOMATED 326 10^3/uL (150-450); RED BLOOD COUNT 4.18 10^6/uL (4.00-5.40); WHITE BLOOD COUNT 11.7 10^3/uL (4.0-10.0)
[2024-03-25 18:50] LABS: HIV 1&2 SCREEN NEGATIVE (NEGATIVE)
[2024-03-25 18:58] LABS: HEPATITIS C VIRUS ABY INDEX < 0.02 INDEX (<0.8)
[2024-03-25 21:04] LABS: GC DNA AMPLIFICATION NEGATIVE (NEGATIVE)
== END ==
LOC: M PLALAB 14:50
PROVIDERS: ATTEND Specialist
DX: Z34.81 Encounter for supervision of other normal pregnancy, first trimester (principal); Z3A.00 Weeks of gestation of pregnancy not specified

== ENCOUNTER → 2024-05-29 | Outpatient (CLI) | payer OTHER | LOC: M RAD 15:33 | PROVIDERS: ATTEND Advanced Practice Midwife | DX: O34.211 Maternal care for low transverse scar from previous cesarean delivery (principal); Z3A.20 20 weeks gestation of pregnancy ==

== ENCOUNTER → 2024-07-08 | Outpatient (CLI) | payer OTHER ==
[2024-07-08 13:56] LABS: HEMATOCRIT 32.4 % (36.0-47.0); HEMOGLOBIN 10.1 g/dl (12.0-15.5); MEAN CORPUSCULAR HEMOGLOBIN 27.4 pg (27.0-33.0); MEAN CORPUSCULAR HGB CONC 31.2 g/dl (32.0-36.5); PLATELET COUNT, AUTOMATED 305 10^3/uL (150-450); RED BLOOD COUNT 3.68 10^6/uL (4.00-5.40); WHITE BLOOD COUNT 13.8 10^3/uL (4.0-10.0)
[2024-07-08 14:22] LABS: GLUCOSE CHALLENGE TEST 1 HOUR 92 MG/DL (LESS THAN 140)
[2024-07-08 14:53] LABS: HIV 1&2 SCREEN NEGATIVE (NEGATIVE)
[2024-07-08 15:01] LABS: HEPATITIS C VIRUS ABY INDEX < 0.02 INDEX (<0.8)
[2024-07-08 15:42] LABS: GC DNA AMPLIFICATION NEGATIVE (NEGATIVE)
== END ==
LOC: M PLALAB 08:37
PROVIDERS: ATTEND Nurse Practitioner Family
DX: Z34.82 Encounter for supervision of other normal pregnancy, second trimester (principal); Z3A.00 Weeks of gestation of pregnancy not specified

== ENCOUNTER → 2024-07-19 | Outpatient (CLI) | payer OTHER | LOC: M RAD 15:28 | PROVIDERS: ATTEND Obstetrics & Gynecology | DX: Z34.80 Encounter for supervision of other normal pregnancy, unspecified trimester (principal); Z3A.27 27 weeks gestation of pregnancy ==

== ENCOUNTER → 2024-08-20 | Outpatient (CLI) | payer OTHER ==
[2024-08-20 14:32] LABS: HEMATOCRIT 32.6 % (36.0-47.0); MEAN CORPUSCULAR HGB CONC 30.7 g/dl (32.0-36.5); MEAN CORPUSCULAR VOLUME 84.9 fl (80.0-96.0); PLATELET COUNT, AUTOMATED 353 10^3/uL (150-450); RED BLOOD COUNT 3.84 10^6/uL (4.00-5.40); WHITE BLOOD COUNT 14.9 10^3/uL (4.0-10.0)
[2024-08-20 14:50] LABS: URIC ACID 4.7 MG/DL (3.1-7.8)
[2024-08-20 14:52] LABS: LDH LACTATE DEHYDROGENASE 165 U/L (120-246)
[2024-08-20 14:53] LABS: ALT/SGPT < 9 U/L (7.0-40); AST/SGOT < 8 U/L (<34); BILIRUBIN,TOTAL 0.3 MG/DL (0.3-1.2); CREATININE,RANDOM URINE 27.5 MG/DL; GLOMERULAR FILTRATION RATE > 60.0 (>60)
[2024-08-20 14:54] LABS: TOTAL PROTEIN,RANDOM URINE < 6.0 MG/DL (0.0-14.0)
== END ==
LOC: M PLALAB 11:19
PROVIDERS: ATTEND Obstetrics & Gynecology
DX: R03.0 Elevated blood-pressure reading, without diagnosis of hypertension (principal); L29.9 Pruritus, unspecified

== ENCOUNTER → 2024-09-13 | Outpatient (REF) | payer OTHER | LOC: M SFHCWAGY 16:46 | PROVIDERS: ATTEND Specialist | DX: Z34.83 Encounter for supervision of other normal pregnancy, third trimester (principal); Z36.85 Encounter for antenatal screening for Streptococcus B ==

== ENCOUNTER 2024-09-30 05:30 | Inpatient (IN) | payer OTHER ==
[~2024-09-30] VITALS: Ht 167.6 cm; Wt 97.0 kg
[2024-09-30] VITALS (8 sets, daily range): BP systolic 103–126; BP diastolic 55–83; TEMP 98; O2SAT 97–99
[~2024-09-30 05:30] MED LIST changes: +FERR325T3 PO
[2024-09-30 06:20] LABS: HEMATOCRIT 32.5 % (36.0-47.0); HEMOGLOBIN 10.2 g/dl (12.0-15.5); MEAN CORPUSCULAR HEMOGLOBIN 26.1 pg (27.0-33.0); MEAN CORPUSCULAR HGB CONC 31.4 g/dl (32.0-36.5); MEAN CORPUSCULAR VOLUME 83.1 fl (80.0-96.0); PLATELET COUNT, AUTOMATED 289 10^3/uL (150-450); RED BLOOD COUNT 3.91 10^6/uL (4.00-5.40); WHITE BLOOD COUNT 13.6 10^3/uL (4.0-10.0)
[2024-09-30] MEDS ORDERED: MORPHINE PRES-FREE INJ 10 MG/10 ML VIAL As Ordered ONE (07:16)
[2024-09-30] MEDS ORDERED: OXYTOCIN 30UNITS IN 0.9% NaCl 500ML IV BAG As Ordered ONE (07:16)
[2024-09-30] MEDS: BICITRA 30ML SOLN UDC PO ONE (07:18)
[2024-09-30] MEDS: ceFAZolin SODIUM 2 GM in DEXTROSE 5% (D5W) ADV/MINI-BAG 50 ML IV ONE (07:18)
[2024-09-30] MEDS: LACTATED RINGER'S 1000 ML IV STA (07:19)
[2024-09-30] MEDS: LR 1,000 ML IV SCH ×2 (07:19→09:16)
[2024-09-30 07:20] LABS: HIV 1&2 SCREEN NEGATIVE (NEGATIVE)
[2024-09-30] MEDS ORDERED: ONDANSETRON 4MG 2ML VIAL As Ordered ONE (07:21)
[2024-09-30] MEDS ORDERED: OXYTOCIN INJ 10UNITS/ML 1ML VIAL As Ordered ONE (07:22)
[2024-09-30 07:28] LABS: HEPATITIS C VIRUS ABY INDEX 0.03 INDEX (<0.8)
[2024-09-30] MEDS ORDERED: PHENYLephrine 500MCG 5ML (100MCG/ML) SYRINGE As Ordered ONE (08:01)
[2024-09-30] MEDS ORDERED: ACETAMINOPHEN 1000MG/100ML IV BAG As Ordered ONE (08:01)
[2024-09-30] MEDS ORDERED: KETOROLAC 30 MG/ML 1ML VIAL As Ordered ONE (08:03)
[2024-09-30 08:15] LABS: CORD GAS ABE A -2.9; CORD GAS HCO3 A 24.2 MMOL/L; CORD GAS O2 SAT A 77.5 %; CORD GAS PCO2 A 50.9 mmHg; CORD GAS PH A 7.295 UNITS; CORD GAS PO2 A 38.3 mmHg; CORD GAS SBC A 21.6 MMOL/L; CORD GAS TCO2 A 25.8 MMOL/L
[2024-09-30 08:16] LABS: CORD GAS ABE V -1.2; CORD GAS HCO3 V 24.6 MMOL/L; CORD GAS O2 SAT V 85.7 %; CORD GAS PCO2 V 44.9 mmHg; CORD GAS PH V 7.356 UNITS; CORD GAS PO2 V 43.4 mmHg; CORD GAS SBC V 23.2 MMOL/L; CORD GAS TCO2 V 25.9 MMOL/L
[2024-09-30] MEDS ORDERED: DOCUSATE SODIUM 100MG CAPSULE PO PRN (08:30)
[2024-09-30] MEDS ORDERED: RHOGAM 300MCG (1500IU) INJ IM SCH (08:30)
[2024-09-30] MEDS ORDERED: SIMETHICONE 80MG CHEW TAB PO PRN (08:30)
[2024-09-30] MEDS ORDERED: KETOROLAC 30 MG/ML 1ML VIAL IV SCH (08:30)
[2024-09-30] MEDS ORDERED: PERCOCET 5MG/325MG TAB PO PRN ×2 (08:30)
[2024-09-30] MEDS ORDERED: fentaNYL 100 MCG/2 ML INJECTION IV PRN (09:00)
[2024-09-30] MEDS: PRENATAL VITAMINS CHEWABLE TABLET PO SCH (09:00)
[2024-09-30] MEDS ORDERED: PROMETHAZINE 25MG/ML 1ML VIAL IV PRN (09:00)
[2024-09-30] MEDS ORDERED: oxyCODONE 5MG TAB PO PRN (09:00)
[2024-09-30] MEDS ORDERED: diphenhydrAMINE 50MG/ML VIAL IV PRN (09:00)
[2024-09-30] MEDS ORDERED: **NOTE PATIENT COMMENT** MISC XX SCH (09:00)
[2024-09-30] MEDS: SLF 3 ML SYR IV SCH (09:00)
[2024-09-30] MEDS ORDERED: NALOXONE INJ 0.4MG/1ML VIAL IV PRN ×2 (09:00)
[2024-09-30] MEDS ORDERED: ONDANSETRON 4MG 2ML VIAL IV PRN ×2 (09:00)
[2024-09-30] MEDS: ONDANSETRON 4MG 2ML VIAL IV PRN (11:26)
[2024-09-30] MEDS: KETOROLAC 30 MG/ML 1ML VIAL IV SCH (15:36)
[2024-09-30] MEDS ORDERED: OXYC-517 PO (22:00)
[2024-10-01] MEDS: ACETAMINOPHEN 500 MG TAB PO PRN (00:56)
[2024-10-01 02:00] VITALS: BP 108/61; O2SAT 100
[2024-10-01 05:25] VITALS: BP 116/69; O2SAT 97
[2024-10-01 06:21] LABS: HEMATOCRIT 26.4 % (36.0-47.0); HEMOGLOBIN 8.4 g/dl (12.0-15.5); MEAN CORPUSCULAR HEMOGLOBIN 26.5 pg (27.0-33.0); MEAN CORPUSCULAR HGB CONC 31.8 g/dl (32.0-36.5); MEAN CORPUSCULAR VOLUME 83.3 fl (80.0-96.0); PLATELET COUNT, AUTOMATED 230 10^3/uL (150-450); RED BLOOD COUNT 3.17 10^6/uL (4.00-5.40); WHITE BLOOD COUNT 15.6 10^3/uL (4.0-10.0)
[2024-10-01 10:00] VITALS: BP 131/74; O2SAT 98
[2024-10-01] MEDS: IBUPROFEN 800 MG TAB PO SCH (10:38)
[2024-10-01] MEDS: OMEPRAZOLE 20MG CAP PO SCH (10:39)
[2024-10-01 14:00] VITALS: BP 126/76; O2SAT 99
[2024-10-01] MEDS: ACETAMINOPHEN 325 MG TAB PO PRN (16:47)
[2024-10-01 18:00] VITALS: BP 120/65; O2SAT 97
[2024-10-01 22:00] VITALS: BP 117/70; O2SAT 97
[2024-10-02 02:00] VITALS: BP 115/71; O2SAT 98
[2024-10-02 06:00] VITALS: BP 121/79; O2SAT 98
[2024-10-02] MEDS ORDERED: MEASLES,MUMPS,RUBELLA VACCINE INJ (MMR-II) SC.IMMUN ONE (09:00)
[2024-10-02 10:00] VITALS: BP 121/64; O2SAT 98
[2024-10-02 14:00] VITALS: BP 126/56; O2SAT 98
== END 2024-10-02 16:25 | disposition home or self-care (01) | DRG 540 ==
LOC: M LDI 05:30 → M OBS 09:40
PROVIDERS: ADMIT Specialist; ATTEND Specialist
PROC: 10D00Z1 Extraction of Products of Conception, Low, Open Approach (ICD-10-PCS; principal; 2024-09-30 07:30)
DX: O34.211 Maternal care for low transverse scar from previous cesarean delivery (principal); Z37.0 Single live birth; Z3A.38 38 weeks gestation of pregnancy; O13.4 Gestational [pregnancy-induced] hypertension without significant proteinuria, complicating childbirth; O69.82X0 Labor and delivery complicated by other cord entanglement, without compression, not applicable or unspecified